=== PATIENT | female | born 1995 | race Caucasian/White ===

== ENCOUNTER 2016-11-26 12:12 | Emergency (ER) | payer MEDICAID, OTHER ==
[~2016-11-26 12:12] MED LIST: PRENTAB74 PO
[2016-11-26] MEDS ORDERED: ACETAMINOPHEN 325 MG TAB As Ordered ONE (13:29)
--- NOTE | 2016-11-26 14:54 | EDDOCDS ---
Physician Documentation [facility] Name: Bette Lou Age: 21 yrs Sex: Female : 1995 Arrival Date: 11/26/2016 Time: 12:12 Bed PR Private MD: Unknown, Family Disposition: 11/26/16 14:39 Discharged to Home/Self Care. Impression: Fever presenting with conditions classified elsewhere, Acute sinusitis, unspecified, Acute upper respiratory infection, unspecified, Other abdominal pain - left-sided, Low back pain. - Condition is Stable. - Discharge Instructions: Back Pain, Adult, Sinusitis, Adult, Upper Respiratory Infection, Adult. - Prescriptions for Augmentin 875- 125 mg Oral Tablet - take 1 tablet by ORAL route every 12 hours for 7 days; 14 tablet. - Medication Reconciliation, Local Pharmacy Hours form. - Follow up: Emergency Department; When: As needed; Reason: Worsening of conditions. Follow up: Your Stone Finisher; When: Call to arrange an appointment; Reason: Wound/Symptom Recheck, Recheck today's complaints, Continuance of care. - Problem is new. - Symptoms have improved. Historical: - Allergies: no known allergies; - Home Meds: 1. Vitamin Oral tab 1 tab once daily 2. Iron CR Unknown Oral daily - PMHx: pars defect; - Social history: Smoking status: Patient states was never smoker of tobacco. No barriers to communication noted, The patient speaks fluent Polish, Speaks appropriately for age. - Family history: Not pertinent. - : The pt / caregiver states he / she is not on anticoagulants. Home medication list is obtained from the patient. - Exposure Risk Screening:: None identified. 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 9 in. (175.26 cm) (R); Pain 6/10; 14:48 BP 123 / 64; Pulse 88; Resp 20; Temp 99.5(T); Pulse Ox 97% on R/A; Pain 5/10; jml1 12:14 Body Mass Index 26.58 (81.65 kg, 175.26 cm) gr2 MDM: 12:46 Acetaminophen Tablet 975 mg PO once ordered. dt4 12:46 Obtain sample by nasopharyngeal swab ordered. dt4 12:46 Heart Tones ordered. dt4 12:47 -Influenza A&B Rapid Antigen - Nose Ordered. EDMS 13:47 Financial registration complete. lg 13:52 Urine Dip ordered. dt4 13:53 Urine Culture Ordered. [facility] Point of Care Testing: Urine Dip: 14:07 pH: 5; ; Specific [place]: 1.020; Ketones: Negative; Glucose: Negative; Protein: Trace; jf3 Leukocytes: Negative; Nitrite: Negative ; Blood: Negative; Bilirubin: Negative ; Urobilinogen: Normal Ranges: Administered Medications: 13:31 Drug: Acetaminophen 975 mg [acetaminophen 325 mg tablet (3 tabs)] Route: PO; jf3 Signatures: Dispatcher MedHost [facility] Flor Zacarias, Reg Reg lg Tala Stoner RN RN ck1 Donna Higgins RN RN alisia3 Billie Mathew PA-C PACharleen dt4 Juve Galvin RN jf3 MTDD
--- NOTE | 2016-11-26 14:54 | EDDOCDS ---
Nurse's Notes [facility] Name: Bette Lou Age: 21 yrs Sex: Female : 1995 Arrival Date: 11/26/2016 Time: 12:12 Bed PR Private MD: Unknown, Family Dr Diagnosis: Fever presenting with conditions classified elsewhere;Acute sinusitis, unspecified;Acute upper respiratory infection, unspecified;Other abdominal [id number]-rbhuf;Low back pain Presentation: 11/26 12:26 Presenting complaint: Patient states: Pt left work because she had a fever and jo3 respiratory congestion. Low back pain which is "pinching" and left abdominal pain. 19 weeks by ultrasound. Acute neurological deficits are not present. Mechanism of Injury: No Mechanism of Injury. Adult Sepsis Screening: The patient does not have new or worsening altered mentation. Patient's respiratory rate is less than 22. Systolic blood pressure is greater than 100. Patient has a qSOFA score of 0- Negative Sepsis Screen. Suicide/Homicide risk assessment- the patient denies having any suicidal and/or homicidal ideations and does not present with any other emotional, behavioral or mental health complaints. Status: Patient is not a surgical services tech or dependent. Transition of care: patient was not received from another setting of care. 12:26 Acuity: SIERRA Level 3 jo3 12:26 Method Of Arrival: Walkin/Carried/Asstd jo3 Triage Assessment: 12:29 General: Appears in no apparent distress, Behavior is appropriate for age, cooperative. jo3 Pain: Pain currently is 5 out of 10 on a pain scale. At worst was 10 out of 10 on a pain scale. HIV screening NA for this visit Offered previously. Neurological: Level of Consciousness is awake, alert, Oriented to person, place, time. Respiratory: Airway is patent Respiratory effort is even, unlabored. Derm: Skin is pink, warm & dry. 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 Vitamin Oral tab 1 tab once daily 2. Iron CR Unknown Oral daily - PMHx: pars defect; - Social history: Smoking status: Patient states was never smoker of tobacco. No barriers to communication noted, The patient speaks fluent Tuval[place], Speaks appropriately for age. - Family history: Not pertinent. - : The pt / caregiver states he / she is not on anticoagulants. Home medication list is obtained from the patient. - Exposure Risk Screening:: None identified. Screenin:51 Screening information is obtained from the patient. Fall risk: No risks identified. ck1 Assistance ADL's: requires no assistance with activities of daily living. Abuse/DV Screen: The patient / caregiver reports he/she is: not in a situation that causes fear, pain or injury. Nutritional screening: No deficits noted. Advance Directives: Currently, there is no health care proxy. home support is adequate. Assessment: 14:52 General: Appears in no apparent distress, comfortable, Behavior is appropriate for age, ck1 cooperative. Pain: Location: back Pain currently is 5 out of 10 on a pain scale. Neurological: Level of Consciousness is awake, alert, obeys commands, Oriented to person, place, time. Derm: Skin is intact, is healthy with good turgor, Skin is pink, warm & dry. Musculoskeletal: Circulation, motion, and sensation intact Range of motion intact in all extremities. Vital Signs: 12:14 BP 143 / 67; Pulse 111; Resp 18 S; Temp 100.8(O); Pulse Ox 99% on R/A; Weight 81.65 kg gr2 (R); Height 5 ft. 9 in. (175.26 cm) (R); Pain 6/10; 14:48 BP 123 / 64; Pulse 88; Resp 20; Temp 99.5(T); Pulse Ox 97% on R/A; Pain 5/10; jml1 12:14 Body Mass Index 26.58 (81.65 kg, 175.26 cm) gr2 Vitals: 12:14 Log In Time: November 26, 2016 at 12:14. gr2 13:37 Heart Tones 163BPM. jf3 ED Course: 12:14 Patient visited by Zachery Oconnor. gr2 12:14 Unknown, Family Dr is Private Physician. gr2 12:14 Patient moved to Waiting gr2 12:16 Patient visited by Zachery Oconnor. gr2 12:16 Patient moved to Pre RCE gr2 12:28 Triage Initiated jo3 12:31 Patient visited by Donna Higgins RN. jo3 13:18 Patient moved to Triage 3 nb2 13:32 Patient visited by Cher Perez. nb2 13:33 Bill[facility] Mathe[facility]C [facility]. dt4 13:33 Adan Montague MD is Attending Physician. dt4 13:33 Patient visited by Billie Mathew PA-C. dt4 13:37 -Influenza A&B Rapid Antigen - Nose Sent. jf3 14:07 Patient visited by Juve Galvin RN. jf3 14:07 Patient moved to jf3 14:07 Urine Culture Sent. jf3 14:38 Your Terrazzo Mechanic is Referral Physician. dt4 14:48 Patient visited by Isaías Matt. jml1 14:51 No IV's were initiated during this patient's visit. No procedures done that require ck1 assistance. 14:52 The patient / caregiver is instructed regarding the plan of care and ED course. ck1 Administered Medications: 13:31 Drug: Acetaminophen 975 mg [acetaminophen 325 mg tablet (3 tabs)] Route: PO; jf3 Point of Care Testing: Urine Dip: 14:07 pH: 5; ; Specific [place]: 1.020; Ketones: Negative; Glucose: Negative; Protein: Trace; jf3 Leukocytes: Negative; Nitrite: Negative ; Blood: Negative; Bilirubin: Negative ; Urobilinogen: Normal Ranges: Order Results: Lab Order: -Influenza A&B Rapid Antigen - Nose; SPEC'M 11/26/16 13:34 Test: INFLUENZA A RAPID SCR by ICA; Value: INFLUENZA A RESULTS NEGATIVE; Status: F Test: INFLUENZA A RAPID SCR by ICA; Value: Comments:; Status: F Test: INFLUENZA B RAPID SCR by ICA; Value: INFLUENZA B RESULTS NEGATIVE; Status: F Test Note: ; The Influenza test is a direct rapid immunoassay for the qualitative detection of Influenza viral antigen. Cell culture (Viral Culture) testing should be considered to confirm NEGATIVE results and to assist in detecting other viruses that can provide similar clinical symptoms. Please contact the lab within 24 hours ([phone]) if confirmatory testing is desired. Outcome: 14:39 Discharge ordered by Provider. dt4 14:51 Discharge Assessment: Patient awake, alert and oriented x 3. No cognitive and/or ck1 functional deficits noted. Patient verbalized understanding of disposition instructions. patient administered narcotics - no. The following High Risk Discharge criteria are identified: None. Discharged to home ambulatory. Condition: stable. Discharge instructions given to patient, Instructed on discharge instructions, follow up and referral plans. medication usage, Demonstrated understanding of instructions, medications, Pt was receptive of discharge instructions/ teaching. Prescriptions given X 1. No special radiology studies were completed. Property :Personal belongings accompany Pt. 14:53 Patient left the ED. ck1 Signatures: Tala Stoner,RN RN ck1 Donna HigginsRN RN jo3 Isaías Matt jml1 Zachery Oconnor gr2 Billie Mathew PA-C PACharleen dt4 Juve Galvin RN RN jf3 Cher Perez nb2 Corrections: (The following items were deleted from the chart) 12:31 12:26 Presenting complaint: Patient states: Pt left work because she had a fever and jo3 respiratory congestion. Low back pain which is "pinching" and left abdominal pain jo3 MTDD
--- NOTE | 2016-11-28 15:54 | EDDOCDS ---
Physician Documentation [facility] Name: Bette Lou Age: 21 yrs Sex: Female : 1995 Arrival Date: 11/26/2016 Time: 12:12 Bed PR Private MD: Unknown, Family Disposition: 11/26/16 14:39 Discharged to Home/Self Care. Impression: Fever presenting with conditions classified elsewhere, Acute sinusitis, unspecified, Acute upper respiratory infection, unspecified, Other abdominal pain - left-sided, Low back pain. - Condition is Stable. - Discharge Instructions: Back Pain, Adult, Sinusitis, Adult, Upper Respiratory Infection, Adult. - Prescriptions for Augmentin 875- 125 mg Oral Tablet - take 1 tablet by ORAL route every 12 hours for 7 days; 14 tablet. - Medication Reconciliation, Local Pharmacy Hours form. - Follow up: Emergency Department; When: As needed; Reason: Worsening of conditions. Follow up: Your Batch Records Clerk; When: Call to arrange an appointment; Reason: Wound/Symptom Recheck, Recheck today's complaints, Continuance of care. - Problem is new. - Symptoms have improved. Historical: - Allergies: no known allergies; - Home Meds: 1. Vitamin Oral tab 1 tab once daily 2. Iron CR Unknown Oral daily - PMHx: pars defect; - Social history: Smoking status: Patient states was never smoker of tobacco. No barriers to communication noted, The patient speaks fluent [place], Speaks appropriately for age. - Family history: Not pertinent. - : The pt / caregiver states he / she is not on anticoagulants. Home medication list is obtained from the patient. - Exposure Risk Screening:: None identified. 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 9 in. (175.26 cm) (R); Pain 6/10; 14:48 BP 123 / 64; Pulse 88; Resp 20; Temp 99.5(T); Pulse Ox 97% on R/A; Pain 5/10; jml1 12:14 Body Mass Index 26.58 (81.65 kg, 175.26 cm) gr2 MDM: 12:46 Acetaminophen Tablet 975 mg PO once ordered. dt4 12:46 Obtain sample by nasopharyngeal swab ordered. dt4 12:46 Heart Tones ordered. dt4 12:47 -Influenza A&B Rapid Antigen - Nose Ordered. EDMS 13:47 Financial registration complete. lg 13:52 Urine Dip ordered. dt4 13:53 Urine Culture Ordered. EDMS 15:43 [facility] Payment Agreement was scanned into [employer] and attached to record. lg 11/27 12:22 T-Sheet-- Draft Copy was scanned into [employer] and attached to record. gb Point of Care Testing: Urine Dip: 11/26 14:07 pH: 5; ; Specific [place]: 1.020; Ketones: Negative; Glucose: Negative; Protein: Trace; jf3 Leukocytes: Negative; Nitrite: Negative ; Blood: Negative; Bilirubin: Negative ; Urobilinogen: Normal Ranges: Administered Medications: 13:31 Drug: Acetaminophen 975 mg [acetaminophen 325 mg tablet (3 tabs)] Route: PO; jf3 Signatures: Dispatcher [employer] [facility] Anisha Sanchez, Reg Reg gb Flor Zacarias, Reg Reg lg Tala StonerRN RN ck1 Donna HigginsRN RN jo3 Billie Mathew PA-C PACharleen dt4 Juve Galvin RN jf3 The chart was reviewed and I authenticate all verbal orders and agree with the evaluation and treatment provided.Attachments: 15:43 [facility] Payment Agreement 11/27 12:22 T-Sheet-- Draft Copy gb Chart Complete MTDD
--- NOTE | 2016-11-28 15:54 | EDDOCDS ---
Nurse's Notes [facility] Name: Bette Lou Age: 21 yrs Sex: Female : 1995 Arrival Date: 11/26/2016 Time: 12:12 Bed PR Private MD: Unknown, Family Dr Diagnosis: Fever presenting with conditions classified elsewhere;Acute sinusitis, unspecified;Acute upper respiratory infection, unspecified;Other abdominal aspc-[id number]-[id number];Low back pain Presentation: 11/26 12:26 Presenting complaint: Patient states: Pt left work because she had a fever and jo3 respiratory congestion. Low back pain which is "pinching" and left abdominal pain. 19 weeks by ultrasound. Acute neurological deficits are not present. Mechanism of Injury: No Mechanism of Injury. Adult Sepsis Screening: The patient does not have new or worsening altered mentation. Patient's respiratory rate is less than 22. Systolic blood pressure is greater than 100. Patient has a qSOFA score of 0- Negative Sepsis Screen. Suicide/Homicide risk assessment- the patient denies having any suicidal and/or homicidal ideations and does not present with any other emotional, behavioral or mental health complaints. 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 Transition of care: patient was not received from another setting of care. 12:26 Acuity: SIERRA Level 3 jo3 12:26 Method Of Arrival: Walkin/Carried/Asstd jo3 Triage Assessment: 12:29 General: Appears in no apparent distress, Behavior is appropriate for age, cooperative. jo3 Pain: Pain currently is 5 out of 10 on a pain scale. At worst was 10 out of 10 on a pain scale. HIV screening NA for this visit Offered previously. Neurological: Level of Consciousness is awake, alert, Oriented to person, place, time. Respiratory: Airway is patent Respiratory effort is even, unlabored. Derm: Skin is pink, warm & dry. 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 Vitamin Oral tab 1 tab once daily 2. Iron CR Unknown Oral daily - PMHx: pars defect; - Social history: Smoking status: Patient states was never smoker of tobacco. No barriers to communication noted, The patient speaks fluent German, Speaks appropriately for age. - Family history: Not pertinent. - : The pt / caregiver states he / she is not on anticoagulants. Home medication list is obtained from the patient. - Exposure Risk Screening:: None identified. Screenin:51 Screening information is obtained from the patient. Fall risk: No risks identified. ck1 Assistance ADL's: requires no assistance with activities of daily living. Abuse/DV Screen: The patient / caregiver reports he/she is: not in a situation that causes fear, pain or injury. Nutritional screening: No deficits noted. Advance Directives: Currently, there is no health care proxy. home support is adequate. Assessment: 14:52 General: Appears in no apparent distress, comfortable, Behavior is appropriate for age, ck1 cooperative. Pain: Location: back Pain currently is 5 out of 10 on a pain scale. Neurological: Level of Consciousness is awake, alert, obeys commands, Oriented to person, place, time. Derm: Skin is intact, is healthy with good turgor, Skin is pink, warm & dry. Musculoskeletal: Circulation, motion, and sensation intact Range of motion intact in all extremities. Vital Signs: 12:14 BP 143 / 67; Pulse 111; Resp 18 S; Temp 100.8(O); Pulse Ox 99% on R/A; Weight 81.65 kg gr2 (R); Height 5 ft. 9 in. (175.26 cm) (R); Pain 6/10; 14:48 BP 123 / 64; Pulse 88; Resp 20; Temp 99.5(T); Pulse Ox 97% on R/A; Pain 5/10; jml1 12:14 Body Mass Index 26.58 (81.65 kg, 175.26 cm) gr2 Vitals: 12:14 Log In Time: November 26, 2016 at 12:14. gr2 13:37 Heart Tones 163BPM. jf3 ED Course: 12:14 Patient visited by Zachery Oconnor. gr2 12:14 Unknown, Family Dr is Private Physician. gr2 12:14 Patient moved to Waiting gr2 12:16 Patient visited by Zachery Oconnor. gr2 12:16 Patient moved to Pre RCE gr2 12:28 Triage Initiated jo3 12:31 Patient visited by Donna Higgins RN. jo3 13:18 Patient moved to Triage 3 nb2 13:32 Patient visited by Cher Perez. nb2 13:33 Billie aMthew PA-C is PHCP. dt4 13:33 Adan Montague MD is Attending Physician. dt4 13:33 Patient visited by Billie Mathew PA-C. dt4 13:37 -Influenza A&B Rapid Antigen - Nose Sent. jf3 14:07 Patient visited by Juve Galvin RN. jf3 14:07 Patient moved to jf3 14:07 Urine Culture Sent. jf3 14:38 Your Networking Engineer is Referral Physician. dt4 14:48 Patient visited by Isaías Matt. jml1 14:51 No IV's were initiated during this patient's visit. No procedures done that require ck1 assistance. 14:52 The patient / caregiver is instructed regarding the plan of care and ED course. ck1 15:43 [facility] Payment Agreement was scanned into [employer] and attached to record. 11/27 12:22 T-Sheet-- Draft Copy was scanned into [employer] and attached to record. gb Administered Medications: 11/26 13:31 Drug: Acetaminophen 975 mg [acetaminophen 325 mg tablet (3 tabs)] Route: PO; jf3 Point of Care Testing: Urine Dip: 14:07 pH: 5; ; Specific [place]: 1.020; Ketones: Negative; Glucose: Negative; Protein: Trace; jf3 Leukocytes: Negative; Nitrite: Negative ; Blood: Negative; Bilirubin: Negative ; Urobilinogen: Normal Ranges: Order Results: Lab Order: -Influenza A&B Rapid Antigen - Nose; SPEC'M 11/26/16 13:34 Test: INFLUENZA A RAPID SCR by ICA; Value: INFLUENZA A RESULTS NEGATIVE; Status: F Test: INFLUENZA A RAPID SCR by ICA; Value: Comments:; Status: F Test: INFLUENZA B RAPID SCR by ICA; Value: INFLUENZA B RESULTS NEGATIVE; Status: F Test Note: ; The Influenza test is a direct rapid immunoassay for the qualitative detection of Influenza viral antigen. Cell culture (Viral Culture) testing should be considered to confirm NEGATIVE results and to assist in detecting other viruses that can provide similar clinical symptoms. Please contact the lab within 24 hours ([phone]) if confirmatory testing is desired. Lab Order: Urine Culture; SPEC'M 11/26/16 14:00 Test: URINE CULTURE; Value: <EXTERNAL COMMENT eCWMed> FULL REPORT IN LAB NOTES (eCW and Medent).; Status: F Test: URINE CULTURE; Value: URINE CULTURE RESULT NO GROWTH; Status: F Outcome: 14:39 Discharge ordered by Provider. dt4 14:51 Discharge Assessment: Patient awake, alert and oriented x 3. No cognitive and/or ck1 functional deficits noted. Patient verbalized understanding of disposition instructions. patient administered narcotics - no. The following High Risk Discharge criteria are identified: None. Discharged to home ambulatory. Condition: stable. Discharge instructions given to patient, Instructed on discharge instructions, follow up and referral plans. medication usage, Demonstrated understanding of instructions, medications, Pt was receptive of discharge instructions/ teaching. Prescriptions given X 1. No special radiology studies were completed. Property :Personal belongings accompany Pt. 14:53 Patient left the ED. ck1 Signatures: Anisha Sanchez, Reg Reg gb Flor Zacarias, Reg Reg lg Tala StonerRN RN ck1 Donna HigginsRN RN alisia3 Isaías Matt jml1 Zachery Oconnor gr2 Billie Mathew, PA-C PA-C dt4 Juve GalvinRN RN jf3 Cher Perez nb2 Corrections: (The following items were deleted from the chart) 12:31 12:26 Presenting complaint: Patient states: Pt left work because she had a fever and jo3 respiratory congestion. Low back pain which is "pinching" and left abdominal pain jo3 Chart Complete MTDD
--- NOTE | 2016-11-28 15:54 | EDDOCDS ---
Physician Documentation [facility] Name: Bette Lou Age: 21 yrs Sex: Female : 1995 Arrival Date: 11/26/2016 Time: 12:12 Bed PR Private MD: Unknown, Family Disposition: 11/26/16 14:39 Discharged to Home/Self Care. Impression: Fever presenting with conditions classified elsewhere, Acute sinusitis, unspecified, Acute upper respiratory infection, unspecified, Other abdominal pain - left-sided, Low back pain. - Condition is Stable. - Discharge Instructions: Back Pain, Adult, Sinusitis, Adult, Upper Respiratory Infection, Adult. - Prescriptions for Augmentin 875- 125 mg Oral Tablet - take 1 tablet by ORAL route every 12 hours for 7 days; 14 tablet. - Medication Reconciliation, Local Pharmacy Hours form. - Follow up: Emergency Department; When: As needed; Reason: Worsening of conditions. 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 - Problem is new. - Symptoms have improved. Historical: - Allergies: no known allergies; - Home Meds: 1. Vitamin Oral tab 1 tab once daily 2. Iron CR Unknown Oral daily - PMHx: pars defect; - Social history: Smoking status: Patient states was never smoker of tobacco. No barriers to communication noted, The patient speaks fluent Yakut, Speaks appropriately for age. - Family history: Not pertinent. - : The pt / caregiver states he / she is not on anticoagulants. Home medication list is obtained from the patient. - Exposure Risk Screening:: None identified. 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 9 in. (175.26 cm) (R); Pain 6/10; 14:48 BP 123 / 64; Pulse 88; Resp 20; Temp 99.5(T); Pulse Ox 97% on R/A; Pain 5/10; jml1 12:14 Body Mass Index 26.58 (81.65 kg, 175.26 cm) gr2 MDM: 12:46 Acetaminophen Tablet 975 mg PO once ordered. dt4 12:46 Obtain sample by nasopharyngeal swab ordered. dt4 12:46 Heart Tones ordered. dt4 12:47 -Influenza A&B Rapid Antigen - Nose Ordered. EDMS 13:47 Financial registration complete. lg 13:52 Urine Dip ordered. dt4 13:53 Urine Culture Ordered. EDMS 15:43 [facility] Payment Agreement was scanned into [employer] and attached to record. lg 11/27 12:22 T-Sheet-- Draft Copy was scanned into [employer] and attached to record. gb Point of Care Testing: Urine Dip: 11/26 14:07 pH: 5; ; Specific [place]: 1.020; Ketones: Negative; Glucose: Negative; Protein: Trace; jf3 Leukocytes: Negative; Nitrite: Negative ; Blood: Negative; Bilirubin: Negative ; Urobilinogen: Normal Ranges: Administered Medications: 13:31 Drug: Acetaminophen 975 mg [acetaminophen 325 mg tablet (3 tabs)] Route: PO; jf3 Signatures: Dispatcher [employer] EDNM Anisha Sanchez, Reg Reg gb Flor Zacarias, Reg Reg lg Tala StonerRN RN ck1 Donna HigginsRN RN jo3 Billie Mathew PA-C PACharleen dt4 Juve Galvin RN jf3 The chart was reviewed and I authenticate all verbal orders and agree with the evaluation and treatment provided.Attachments: 15:43 [facility] Payment Agreement 11/27 12:22 T-Sheet-- Draft Copy gb Chart Complete MTDD
== END 2016-11-26 14:53 | disposition home or self-care (01) ==
LOC: M ED 12:12
DX: O99.89 Other specified diseases and conditions complicating pregnancy, childbirth and the puerperium (principal); J01.90 Acute sinusitis, unspecified; R50.9 Fever, unspecified; M54.5 Low back pain; R10.9 Unspecified abdominal pain; Z3A.19 19 weeks gestation of pregnancy

== ENCOUNTER → 2020-05-11 | Outpatient (REF) | payer OTHER | LOC: M SFHCLERA 13:18 | PROVIDERS: ATTEND Physician Assistant | DX: J02.9 Acute pharyngitis, unspecified (principal) ==

== ENCOUNTER 2020-12-13 13:54 | Emergency (ER) | payer OTHER ==
[~2020-12-13] VITALS: Ht 175.3 cm; Wt 81.1 kg
--- OUTSIDE RECORDS SUMMARY | 2020-12-13 14:05 | CCD | Continuity of Care Document ---
Author Author Bette CONSTANTINO [facility] Organization Unknown Address [address] [place] [address], [facility] [address] [place] [address] Phone [phone] Care Team Providers Care Field Radio Operator Name Role Phone Chente Pratt AUTM [phone] Nick Garcia MD AUTM [phone] Problems Description No Information Available Social History Type Date Description Comments Sex Unknown Tobacco Use Start: Unknown Patient is a current smoker, smo kes every day Smoking Status Reviewed: 09/05/20 Patient is a current smoker, smokes every day Allergies, Adverse Reactions, Alerts Description No Information Available Medications Active Medications SIG Qnty Indications Ordering Provide r Date Tramadol HCL 50mg Tablets 1 every 4-6 hours as needed pain (comp) 24tabs Julius Mary MD 1 Immunizations Description No Information Available Vital Signs Date Vital Result Comment 10/31/2020 5:59pm Body Temperature 98.9 F 09/05/2020 5:07pm Body Temperature 97.1 F Results Description No Information Available Procedures Date Code Description Status 11/05/2020 36999 Therapeutic Procedure, Each 15 M inutes Completed 11/01/2020 57387 Physical Therapy Eval - Low Comp lexity Completed 10/31/2020 15017 X-Ray Foot Complete Completed 10/31/2020 54947 X-Ray Ankle Complete Completed 10/03/2020 90717 X-Ray Foot Complete Completed 10/03/2020 03696 X-Ray Ankle Complete Completed 09/19/2020 61829 X-Ray Foot Complete Completed 09/19/2020 43933 X-Ray Ankle Complete Completed 09/05/2020 72550 X-Ray Foot Complete Completed 09/05/2020 80911 X-Ray Ankle Complete Completed 08/24/2020 37219 Apply Cast Short Leg Walking Com pleted 08/23/2020 25143 X-Ray Foot Complete Completed 08/23/2020 02000 X-Ray Foot Complete Completed 08/23/2020 31239 FX Metatarsal W/O Manipulation C ompleted 08/23/2020 68847 FX Metatarsal W/O Manipulation C ompleted Medical Devices Description No Information Available Encounters Type Date Location Provider Dx Diagnosis Office Visit 10/31/2020 5:30p [facility] CORINNA Rodriguez S92.325D Nondisp fx of 2nd metatarsal bone, l ft, 7thD S92.335D Nondisp fx of 3rd metatarsal bone, l ft, 7thD S92.345D Nondisp fx of 4th metatarsal bone, l ft, 7thD S82.65xD Nondisp fx of lateral malleo viviane of l fibula, 7thD Office Visit 10/03/2020 4:00p [facility] S92.325D Nondisp fx of 2nd metatarsal bone, l ft, 7thD S92.335D Nondisp fx of 3rd metatarsal bone, l ft, 7thD S92.345D Nondisp fx of 4th metatarsal bone, l ft, 7thD S82.65xD Nondisp fx of lateral malleo viviane of l fibula, 7thD Office Visit 09/19/2020 1:30p [facility] CORINNA Rodriguez S92.325D Nondisp fx of 2nd metatarsal bone, l ft, 7thD S92.335D Nondisp fx of 3rd metatarsal bone, l ft, 7thD S92.345D Nondisp fx of 4th metatarsal bone, l ft, 7thD S82.65xD Nondisp fx of lateral malleo viviane of l fibula, 7thD Office Visit 09/05/2020 4:45p [facility] S92.325D Nondisp fx of 2nd metatarsal bone, l ft, 7thD S92.335D Nondisp fx of 3rd metatarsal bone, l ft, 7thD S92.345D Nondisp fx of 4th metatarsal bone, l ft, 7thD S82.65xD Nondisp fx of lateral malleo viviane of l fibula, 7thD Office Visit 08/24/2020 4:45p [facility] Chente Petty, Paolo. S92.325A Nondisp fx of second metatarsal bone, left foot, init S92.335D Nondisp fx of 3rd metatarsal bone, l ft, 7thD S92.345A Nondisp fx of fourth metatar ammon bone, left foot, init Office Visit 08/23/2020 6:15p [facility] CORINNA Rodriguez S92.325A Nondisp fx of second metatarsal bone, left foot, init S92.335A Nondisp fx of third metatars al bone, left foot, init S92.345A Nondisp fx of fourth metatar ammon bone, left foot, init S93.402A Sprain of unspecified ligame nt of left ankle, init encntr Assessments Date Code Description Provider 11/05/2020 S92.325D Nondisplaced fractur e of second metatarsal bone, left foot, subsequent encounter for fracture with routine healing Melisa M. Vespa, [facility] 11/05/2020 S92.335D Nondisplaced fractur e of third metatarsal bone, left foot, subsequent encounter for fracture with routine healing Melisa M. Vespa, [facility] 11/05/2020 S92.345D Nondisplaced fractur e of fourth metatarsal bone, left foot, subsequent encounter for fracture with routine healing Melisa M. Vespa, [facility] 11/05/2020 S82.65xD Nondisplaced fractur e of lateral malleolus of left fibula, subsequent encounter for closed fracture with routine healing Melisa M. Vespa, [facility] 11/01/2020 S92.325D Nondisplaced fractur e of second metatarsal bone, left foot, subsequent encounter for fracture with routine healing Melisa M. Vespa, [facility] 11/01/2020 S92.335D Nondisplaced fractur e of third metatarsal bone, left foot, subsequent encounter for fracture with routine healing Melisa M. Vespa, [facility] 11/01/2020 S92.345D Nondisplaced fractur e of fourth metatarsal bone, left foot, subsequent encounter for fracture with routine healing Melisa Constantino, [facility] 11/01/2020 S82.65xD Nondisplaced fractur e of lateral malleolus of left fibula, subsequent encounter for closed fracture with routine healing Melisa Constantino, [facility] 10/31/2020 S92.325D Nondisplaced fractur e of second metatarsal bone, left foot, subsequent encounter for fracture with routine healing CORINNA Rodriguez 10/31/2020 S92.335D Nondisplaced fractur e of third metatarsal bone, left foot, subsequent encounter for fracture with routine healing CORINNA Rodriguez 10/31/2020 S92.345D Nondisplaced fractur e of fourth metatarsal bone, left foot, subsequent encounter for fracture with routine healing CORINNA Rodriguez 10/31/2020 S82.65xD Nondisplaced fractur e of lateral malleolus of left fibula, subsequent encounter for closed fracture with routine healing CORINNA Rodriguez 10/03/2020 S92.325D Nondisplaced fractur e of second metatarsal bone, left foot, subsequent encounter for fracture with routine healing CORINNA Rodriguez 10/03/2020 S92.335D Nondisplaced fractur e of third metatarsal bone, left foot, subsequent encounter for fracture with routine healing CORINNA Rodriguez 10/03/2020 S92.345D Nondisplaced fractur e of fourth metatarsal bone, left foot, subsequent encounter for fracture with routine healing CORINNA Rodriguez 10/03/2020 S82.65xD Nondisplaced fractur e of lateral malleolus of left fibula, subsequent encounter for closed fracture with routine healing CORINNA Rodriguez 09/19/2020 S92.325D Nondisplaced fractur e of second metatarsal bone, left foot, subsequent encounter for fracture with routine healing CORINNA Rodriguez 09/19/2020 S92.325D Nondisplaced fractur e of second metatarsal bone, left foot, subsequent encounter for fracture with routine healing CORINNA Rodriguez 09/19/2020 S92.335D Nondisplaced fractur e of third metatarsal bone, left foot, subsequent encounter for fracture with routine healing CORINNA Rodriguez 09/19/2020 S92.335D Nondisplaced fractur e of third metatarsal bone, left foot, subsequent encounter for fracture with routine healing CORINNA Rodriguez 09/19/2020 S92.345D Nondisplaced fractur e of fourth metatarsal bone, left foot, subsequent encounter for fracture with routine healing CORINNA Rodriguez 09/19/2020 S92.345D Nondisplaced fractur e of fourth metatarsal bone, left foot, subsequent encounter for fracture with routine healing CORINNA Rodriguez 09/19/2020 S82.65xD Nondisplaced fractur e of lateral malleolus of left fibula, subsequent encounter for closed fracture with routine healing CORINNA Rodriguez 09/19/2020 S82.65xD Nondisplaced fractur e of lateral malleolus of left fibula, subsequent encounter for closed fracture with routine healing CORINNA Rodriguez 09/05/2020 S92.325D Nondisplaced fractur e of second metatarsal bone, left foot, subsequent encounter for fracture with routine healing CORINNA Rodriguez 09/05/2020 S92.335D Nondisplaced fractur e of third metatarsal bone, left foot, subsequent encounter for fracture with routine healing CORINNA Rodriguez 09/05/2020 S92.345D Nondisplaced fractur e of fourth metatarsal bone, left foot, subsequent encounter for fracture with routine healing CORINNA Rodriguez 09/05/2020 S82.65xD Nondisplaced fractur e of lateral malleolus of left fibula, subsequent encounter for closed fracture with routine healing CORINNA Rodriguez 08/24/2020 S92.325A Nondisplaced fractur e of second metatarsal bone, left foot, initial encounter for closed fracture Sree Kingsley 08/24/2020 S92.335D Nondisplaced fractur e of third metatarsal bone, left foot, subsequent encounter for fracture with routine healing Chente Petty, P.A. 08/24/2020 S92.325A Nondisplaced fractur e of second metatarsal bone, left foot, initial encounter for closed fracture Chente Petty, P.A. 08/24/2020 S92.345A Nondisplaced fractur e of fourth metatarsal bone, left foot, initial encounter for closed fracture Chente Petty P.A. 08/24/2020 S92.335A Nondisplaced fractur e of third metatarsal bone, left foot, initial encounter for closed fracture Chente Petty, P.A. 08/24/2020 S92.345A Nondisplaced fractur e of fourth metatarsal bone, left foot, initial encounter for closed fracture Jhon Kingsley.A. 08/23/2020 S92.325A Nondisplaced fractur e of second metatarsal bone, left foot, initial encounter for closed fracture CORINNA Rodriguez 08/23/2020 S92.335A Nondisplaced fractur e of third metatarsal bone, left foot, initial encounter for closed fracture CORINNA Rodriguez 08/23/2020 S92.345A Nondisplaced fractur e of fourth metatarsal bone, left foot, initial encounter for closed fracture CORINNA Rodriguez 08/23/2020 S93.402A Sprain of unspecifie d ligament of left ankle, initial encounter CORINNA Rodriguez Plan of Treatment Future Appointment(s):* 11/09/2020 11:00 am - SHAYNA Alfaro at Physical Therapy * 11/13/2020 1:40 pm - CORINNA Rodriguez at [facility] Functional Status Description No Information Available Mental Status Description No Information Available Referrals Refer to Dr Reason for Referral Status Appt Date Kar Sam Pac PT LT ANKLE [phone] [id number] WRITTEN AUTH PASSED TO PT DEPT. LS Created [address] [place] [address] [address] [place] [address] [phone] Kar Sam I, Pac DME [id number] 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 LS Created [address] [facility] [address] [place] [address] [phone]
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
--- OUTSIDE RECORDS SUMMARY | 2020-12-13 14:05 | CCD | Continuity of Care Document ---
Author Author Bette SAM PA Organization Unknown Address [address] [place] [address], [address] [place] [address] Phone [phone] Care Team Providers Care Grades 9 12 Tutor Name Role Phone Chente Pratt AUTM [phone] Nick Garcia MD AUTM [phone] Problems Description No Information Available Social History [...] Information Available Procedures Date Code Description Status 11/16/2020 33066 Therapeutic Procedure, Each 15 M inutes Completed 11/16/2020 64991 Therapeutic Procedure, Each 15 M inutes Completed 11/12/2020 11125 Therapeutic Procedure, Each 15 M inutes Completed 11/12/2020 18151 Therapeutic Procedure, Each 15 M inutes Completed 11/09/2020 26985 Therapeutic Procedure, Each 15 M inutes Completed 11/09/2020 42007 Therapeutic Procedure, Each 15 M inutes Completed 11/07/2020 86261 Therapeutic Procedure, Each 15 M inutes Completed 11/07/2020 45183 Therapeutic Procedure, Each 15 M inutes Completed 11/05/2020 12473 Therapeutic Procedure, Each 15 M inutes Completed 11/01/2020 06329 Physical Therapy Eval - Low Comp lexity Completed 10/31/2020 41378 X-Ray Ankle Complete Completed 10/31/2020 31228 X-Ray Foot Complete Completed 10/03/2020 70185 X-Ray Foot Complete Completed 10/03/2020 99040 X-Ray Ankle Complete Completed 09/19/2020 93598 X-Ray Foot Complete Completed 09/19/2020 99208 X-Ray Ankle Complete Completed 09/05/2020 12361 X-Ray Foot Complete Completed 09/05/2020 40010 X-Ray Ankle Complete Completed 08/24/2020 77611 Apply Cast Short Leg Walking Com pleted 08/23/2020 07794 X-Ray Foot Complete Completed 08/23/2020 73535 X-Ray Foot Complete Completed 08/23/2020 91620 FX Metatarsal W/O Manipulation C ompleted 08/23/2020 58806 FX Metatarsal W/O Manipulation C ompleted Medical Devices Description No Information Available Encounters Type Date Location Provider Dx Diagnosis Office Visit 11/13/2020 1:40p [place] CORINNA Rodriguez S92.325D Nondisp fx of 2nd metatarsal bone, l ft, 7thD S92.335D Nondisp fx of 3rd metatarsal bone, l ft, 7thD S92.345D Nondisp fx of 4th metatarsal bone, l ft, 7thD S82.65xD Nondisp fx of lateral malleo viviane of l fibula, 7thD Office Visit 10/31/2020 5:30p [place] CORINNA Rodriguez S92.325D Nondisp fx of 2nd metatarsal bone, l ft, 7thD S92.335D Nondisp fx of 3rd metatarsal bone, l ft, 7thD S92.345D Nondisp fx of 4th metatarsal bone, l ft, 7thD S82.65xD Nondisp fx of lateral malleo viviane of l fibula, 7thD Office Visit 10/03/2020 4:00p [place] CORINNA Rodriguez S92.325D Nondisp fx of 2nd metatarsal bone, l ft, 7thD S92.335D Nondisp fx of 3rd metatarsal bone, l ft, 7thD S92.345D Nondisp fx of 4th metatarsal bone, l ft, 7thD S82.65xD Nondisp fx of lateral malleo viviane of l fibula, 7thD Office Visit 09/19/2020 1:30p [place] CORINNA Rodriguez S92.325D Nondisp fx of 2nd metatarsal bone, l ft, 7thD S92.335D Nondisp fx of 3rd metatarsal bone, l ft, 7thD S92.345D Nondisp fx of 4th metatarsal bone, l ft, 7thD S82.65xD Nondisp fx of lateral malleo viviane of l fibula, 7thD Office Visit 09/05/2020 4:45p [place] CORINNA Rodriguez S92.325D Nondisp fx of 2nd metatarsal bone, l ft, 7thD S92.335D Nondisp fx of 3rd metatarsal bone, l ft, 7thD S92.345D Nondisp fx of 4th metatarsal bone, l ft, 7thD S82.65xD Nondisp fx of lateral malleo viviane of l fibula, 7thD Office Visit 08/24/2020 4:45p [place] Chente Petty, P.A. S92.325A Nondisp fx of second metatarsal bone, left foot, init S92.335D Nondisp fx of 3rd metatarsal bone, l ft, 7thD S92.345A Nondisp fx of fourth metatar ammon bone, left foot, init Office Visit 08/23/2020 6:15p [place] CORINNA Rodriguez S92.325A Nondisp fx of second metatarsal bone, left foot, init S92.335A Nondisp fx of third metatars al bone, left foot, init S92.345A Nondisp fx of fourth metatar ammon bone, left foot, init S93.402A Sprain of unspecified ligame nt of left ankle, init encntr Assessments Date Code Description Provider 11/16/2020 S92.325D Nondisplaced fractur e of second metatarsal bone, left foot, subsequent encounter for fracture with routine healing Melisa M. Vira, [facility] 11/16/2020 S92.335D Nondisplaced fractur e of third metatarsal bone, left foot, subsequent encounter for fracture with routine healing [facility] 11/16/2020 S92.345D Nondisplaced fractur e of fourth metatarsal bone, left foot, subsequent encounter for fracture with routine healing Melisa M. Vira, [facility] 11/16/2020 S82.65xD Nondisplaced fractur e of lateral malleolus of left fibula, subsequent encounter for closed fracture with routine healing Melisa M. Vira, [facility] 11/13/2020 S92.325D Nondisplaced fractur e of second metatarsal bone, left foot, subsequent encounter for fracture with routine healing CORINNA Rodriguez 11/13/2020 S92.335D Nondisplaced fractur e of third metatarsal bone, left foot, subsequent encounter for fracture with routine healing CORINNA Rodriguez 11/13/2020 S92.345D Nondisplaced fractur e of fourth metatarsal bone, left foot, subsequent encounter for fracture with routine healing CORINNA Rodriguez 11/13/2020 S82.65xD Nondisplaced fractur e of lateral malleolus of left fibula, subsequent encounter for closed fracture with routine healing CORINNA Rodriguez 11/12/2020 S92.325D Nondisplaced fractur e of second metatarsal bone, left foot, subsequent encounter for fracture with routine healing Melisa Shawn Constantino, [facility] 11/12/2020 S92.335D Nondisplaced fractur e of third metatarsal bone, left foot, subsequent encounter for fracture with routine healing Melisa M. Vira, [facility] 11/12/2020 S92.345D Nondisplaced fractur e of fourth metatarsal bone, left foot, subsequent encounter for fracture with routine healing Melisa M. Vira, [facility] 11/12/2020 S82.65xD Nondisplaced fractur e of lateral malleolus of left fibula, subsequent encounter for closed fracture with routine healing Melisa MJose Constantino, [facility] 11/09/2020 S92.325D Nondisplaced fractur e of second metatarsal bone, left foot, subsequent encounter for fracture with routine healing Melisa M. Vespa, [facility] 11/09/2020 S92.335D Nondisplaced fractur e of third metatarsal bone, left foot, subsequent encounter for fracture with routine healing Melisa M. Vespa, [facility] 11/09/2020 S92.345D Nondisplaced fractur e of fourth metatarsal bone, left foot, subsequent encounter for fracture with routine healing Melisa M. Vespa, [facility] 11/09/2020 S82.65xD Nondisplaced fractur e of lateral malleolus of left fibula, subsequent encounter for closed fracture with routine healing Melisa M. Vespa, [facility] 11/07/2020 S92.325D Nondisplaced fractur e of second metatarsal bone, left foot, subsequent encounter for fracture with routine healing Melisa M. Vespa, [facility] 11/07/2020 S92.335D Nondisplaced fractur e of third metatarsal bone, left foot, subsequent encounter for fracture with routine healing Melisa M. Vespa, [facility] 11/07/2020 S92.345D Nondisplaced fractur e of fourth metatarsal bone, left foot, subsequent encounter for fracture with routine healing Melisa M. Vespa, [facility] 11/07/2020 S82.65xD Nondisplaced fractur e of lateral malleolus of left fibula, subsequent encounter for closed fracture with routine healing Melisa M. Vespa, [facility] 11/05/2020 S92.325D Nondisplaced fractur e of second metatarsal bone, left foot, subsequent encounter for fracture with routine healing Melisa M. Vespa, [facility] 11/05/2020 S92.335D Nondisplaced fractur e of third metatarsal bone, left foot, subsequent encounter for fracture with routine healing Melisa M. Vespa, [facility] 11/05/2020 S92.345D Nondisplaced fractur e of fourth metatarsal bone, left foot, subsequent encounter for fracture with routine healing Melisa M. Vespa, [facility] 11/05/2020 S82.65xD Nondisplaced fractur e of lateral malleolus of left fibula, subsequent encounter for closed fracture with routine healing Melisa Constantino, [facility] 11/01/2020 S92.325D Nondisplaced fractur e of second metatarsal bone, left foot, subsequent encounter for fracture with routine healing Melisa Constantino, [facility] 11/01/2020 S92.335D Nondisplaced fractur e of third metatarsal bone, left foot, subsequent encounter for fracture with routine healing Melisa Constantino, [facility] 11/01/2020 S92.345D Nondisplaced fractur e of fourth metatarsal bone, left foot, subsequent encounter for fracture with routine healing Melisa Constantino, [facility] 11/01/2020 S82.65xD Nondisplaced fractur e of lateral malleolus of left fibula, subsequent encounter for closed fracture with routine healing Melisa Constantino, [facility] 10/31/2020 S92.325D Nondisplaced fractur e of second [...] for closed fracture Chente Petty P.A. 08/24/2020 S92.335D Nondisplaced fractur e of third metatarsal bone, left foot, subsequent encounter for fracture with routine healing Chente Petty P.A. 08/24/2020 S92.325A Nondisplaced fractur e of second metatarsal bone, left foot, initial encounter for closed fracture Chente Petty P.A. 08/24/2020 S92.345A Nondisplaced fractur e of fourth metatarsal bone, left foot, initial encounter for closed fracture Chente Petty P.A. 08/24/2020 S92.335A Nondisplaced fractur e of third metatarsal bone, left foot, initial encounter for closed fracture Chente Petty, P.A. 08/24/2020 S92.345A Nondisplaced fractur e of fourth metatarsal bone, left foot, initial encounter for closed fracture Chente Petty, P.A. 08/23/2020 S92.325A Nondisplaced fractur e of second [...] CORINNA Rodriguez Plan of Treatment Future Appointment(s):* 12/13/2020 11:30 am - CORINNA Rodriguez at [facility] * 11/22/2020 3:00 pm - AMAURY AlfaroT at Physical Therapy * 11/19/2020 3:00 pm - SHAYNA Alfaro at Physical Therapy Functional Status Description No Information Available Mental Status Description No Information Available Referrals Refer to Dr Reason for Referral Status Appt Date Kar Sam I, Pac PT LT ANKLE [id number] [phone] [phone] [id number] WRITTEN AUTH PASSED TO PT DEPT. Created [facility] [address] [address] [phone] Kar Sam I, Pac DME [id number] 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 Created [facility] [address] [address] [phone]
--- OUTSIDE RECORDS SUMMARY | 2020-12-13 14:05 | CCD | Continuity of Care Document ---
Author Author Bette [facility] Organization Unknown Address [address] [place] [address], [facility] [address] [place] [address] Phone [phone] Care Team Providers Care Dialysis Nurse Name Role Phone Chente Pratt AUTM [phone] Nick Garcia MD AUTM [phone] Problems Description No Information Available Social History [...] Information Available Procedures Date Code Description Status 11/09/2020 09308 Therapeutic Procedure, Each 15 M inutes Completed 11/09/2020 59540 Therapeutic Procedure, Each 15 M inutes Completed 11/07/2020 52071 Therapeutic Procedure, Each 15 M inutes Completed 11/07/2020 83294 Therapeutic Procedure, Each 15 M inutes Completed 11/05/2020 73715 Therapeutic Procedure, Each 15 M inutes Completed 11/01/2020 76478 Physical Therapy Eval - Low Comp lexity Completed 10/31/2020 83697 X-Ray Foot Complete Completed 10/31/2020 95870 X-Ray Ankle Complete Completed 10/03/2020 85706 X-Ray Ankle Complete Completed 10/03/2020 96917 X-Ray Foot Complete Completed 09/19/2020 33063 X-Ray Foot Complete Completed 09/19/2020 35642 X-Ray Ankle Complete Completed 09/05/2020 70009 X-Ray Foot Complete Completed 09/05/2020 27050 X-Ray Ankle Complete Completed 08/24/2020 88061 Apply Cast Short Leg Walking Com pleted 08/23/2020 99711 X-Ray Foot Complete Completed 08/23/2020 33837 X-Ray Foot Complete Completed 08/23/2020 20360 FX Metatarsal W/O Manipulation C ompleted 08/23/2020 74801 FX Metatarsal W/O Manipulation C ompleted Medical Devices Description No Information Available Encounters Type Date Location Provider Dx Diagnosis Office Visit 10/31/2020 5:30p [facility] S92.325D Nondisp fx of 2nd metatarsal bone, l ft, 7thD S92.335D Nondisp fx of 3rd metatarsal bone, l ft, 7thD S92.345D Nondisp fx of 4th metatarsal bone, l ft, 7thD S82.65xD Nondisp fx of lateral malleo viviane of l fibula, 7thD Office Visit 10/03/2020 4:00p [facility] S92.325D Nondisp fx of 2nd metatarsal bone, l ft, 7thD S92.335D Nondisp fx of 3rd metatarsal bone, l ft, 7thD S92.345D Nondisp fx of 4th metatarsal bone, l ft, 7thD S82.65xD Nondisp fx of lateral malleo viviane of l fibula, 7thD Office Visit 09/19/2020 1:30p [place] [place] S92.325D Nondisp fx of 2nd metatarsal bone, l ft, 7thD S92.335D Nondisp fx of 3rd metatarsal bone, l ft, 7thD S92.345D Nondisp fx of 4th metatarsal bone, l ft, 7thD S82.65xD Nondisp fx of lateral malleo viviane of l fibula, 7thD Office Visit 09/05/2020 4:45p [place] [place] S92.325D Nondisp fx of 2nd metatarsal bone, l ft, 7thD S92.335D Nondisp fx of 3rd metatarsal bone, l ft, 7thD S92.345D Nondisp fx of 4th metatarsal bone, l ft, 7thD S82.65xD Nondisp fx of lateral malleo viviane of l fibula, 7thD Office Visit 08/24/2020 4:45p [place] [facility] S92.325A Nondisp fx of second metatarsal bone, left foot, init S92.335D Nondisp fx of 3rd metatarsal bone, l ft, 7thD S92.345A Nondisp fx of fourth metatar ammon bone, left foot, init Office Visit 08/23/2020 6:15p [place] [place] S92.325A Nondisp fx of second metatarsal bone, left foot, init S92.335A Nondisp fx of third metatars al bone, left foot, init S92.345A Nondisp fx of fourth metatar ammon bone, left foot, init S93.402A Sprain of unspecified ligame nt of left ankle, init encntr Assessments Date Code Description Provider 11/09/2020 S92.325D Nondisplaced fractur e of second metatarsal bone, left foot, subsequent encounter for fracture with routine healing Melisa Constantino, [facility] 11/09/2020 S92.335D Nondisplaced fractur e of third metatarsal bone, left foot, subsequent encounter for fracture with routine healing Melisa Constantino, [facility] 11/09/2020 S92.345D Nondisplaced fractur e of fourth metatarsal bone, left foot, subsequent encounter for fracture with routine healing Melisa Constantino, [facility] 11/09/2020 S82.65xD Nondisplaced fractur e of lateral malleolus of left fibula, subsequent encounter for closed fracture with routine healing Melisa Constantino, [facility] 11/07/2020 S92.325D Nondisplaced fractur e of second metatarsal bone, left foot, subsequent encounter for fracture with routine healing Melisa Escobar Vespa, [facility] 11/07/2020 S92.335D Nondisplaced fractur e of third metatarsal bone, left foot, subsequent encounter for fracture with routine healing Melisa M. Vespa, [facility] 11/07/2020 S92.345D Nondisplaced fractur e of fourth metatarsal bone, left foot, subsequent encounter for fracture with routine healing Melisa M. Vespa, [facility] 11/07/2020 S82.65xD Nondisplaced fractur e of lateral malleolus of left fibula, subsequent encounter for closed fracture with routine healing Meilsa M. Vespa, [facility] 11/05/2020 S92.325D Nondisplaced fractur e of second metatarsal bone, left foot, subsequent encounter for fracture with routine healing Melisa M. Vespa, [facility] 11/05/2020 S92.335D Nondisplaced fractur e of third metatarsal bone, left foot, subsequent encounter for fracture with routine healing Melisa M. Vespa, [facility] 11/05/2020 S92.345D Nondisplaced fractur e of fourth metatarsal bone, left foot, subsequent encounter for fracture with routine healing Melisa M. Vespa, [facility] 11/05/2020 S82.65xD Nondisplaced fractur e of lateral malleolus of left fibula, subsequent encounter for closed fracture with routine healing Melisa M. Vespa, [facility] 11/01/2020 S92.325D Nondisplaced fractur e of second metatarsal bone, left foot, subsequent encounter for fracture with routine healing Melisa M. Vespa, [facility] 11/01/2020 S92.335D Nondisplaced fractur e of third metatarsal bone, left foot, subsequent encounter for fracture with routine healing Emlisa M. Vespa, [facility] 11/01/2020 S92.345D Nondisplaced fractur e of fourth metatarsal bone, left foot, subsequent encounter for fracture with routine healing Melisa M. Vespa, [facility] 11/01/2020 S82.65xD Nondisplaced fractur e of lateral malleolus of left fibula, subsequent encounter for closed fracture with routine healing Melisa M. Vespa, [facility] 10/31/2020 S92.325D Nondisplaced fractur e of second [...] subsequent encounter for fracture with routine healing Kar CORINNA Hoff 09/19/2020 S92.325D Nondisplaced fractur e of second [...] left foot, initial encounter for closed fracture Paolo Kingsley. 08/24/2020 S92.335D Nondisplaced fractur e of third metatarsal bone, left foot, subsequent encounter for fracture with routine healing Marty KingsleyA. 08/24/2020 S92.325A Nondisplaced fractur e of second metatarsal bone, left foot, initial encounter for closed fracture Paolo Kingsley. 08/24/2020 S92.345A Nondisplaced fractur e of fourth metatarsal bone, left foot, initial encounter for closed fracture Marty KingsleyA. 08/24/2020 S92.335A Nondisplaced fractur e of third metatarsal bone, left foot, initial encounter for closed fracture Marty KingsleyA. 08/24/2020 S92.345A Nondisplaced fractur e of fourth metatarsal bone, left foot, initial encounter for closed fracture Paolo Kingsley. 08/23/2020 S92.325A Nondisplaced fractur e of second [...] CORINNA Rodriguez Plan of Treatment Future Appointment(s):* 11/13/2020 1:40 pm - CORINNA Rodriguez at [facility] Functional Status Description No Information Available Mental Status Description No Information Available Referrals Refer to Dr Reason for Referral Status Appt Date Kar Sam Pac PT LT ANKLE [id number] [phone] [id number] [id number] WRITTEN AUTH PASSED TO PT DEPT. Created [facility] [address] [address] [phone] Kar Sam Pac DME [id number] 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 Created [facility] [address] [address] [phone]
--- OUTSIDE RECORDS SUMMARY | 2020-12-13 14:05 | CCD | Continuity of Care Document ---
Author Author Bette CONSTANTINO [facility] Organization Unknown Address [address] [place] [address], [facility] [address] [place] [address] Phone [phone] Care Team Providers Care Biology Laboratory Assistant Name Role Phone Chente Pratt AUTM [phone] Nick Garcia MD AUTM [phone] Problems Description No Information Available Social History [...] Information Available Procedures Date Code Description Status 11/22/2020 20706 Therapeutic Procedure, Each 15 M inutes Completed 11/22/2020 99096 Therapeutic Procedure, Each 15 M inutes Completed 11/19/2020 11376 Therapeutic Procedure, Each 15 M inutes Completed 11/19/2020 51344 Therapeutic Procedure, Each 15 M inutes Completed 11/16/2020 44714 Therapeutic Procedure, Each 15 M inutes Completed 11/16/2020 81920 Therapeutic Procedure, Each 15 M inutes Completed 11/12/2020 97710 Therapeutic Procedure, Each 15 M inutes Completed 11/12/2020 54022 Therapeutic Procedure, Each 15 M inutes Completed 11/09/2020 15436 Therapeutic Procedure, Each 15 M inutes Completed 11/09/2020 75649 Therapeutic Procedure, Each 15 M inutes Completed 11/07/2020 28202 Therapeutic Procedure, Each 15 M inutes Completed 11/07/2020 26647 Therapeutic Procedure, Each 15 M inutes Completed 11/05/2020 46763 Therapeutic Procedure, Each 15 M inutes Completed 11/01/2020 34376 Physical Therapy Eval - Low Comp lexity Completed 10/31/2020 58528 X-Ray Foot Complete Completed 10/31/2020 90600 X-Ray Ankle Complete Completed 10/03/2020 85436 X-Ray Foot Complete Completed 10/03/2020 83105 X-Ray Ankle Complete Completed 09/19/2020 70072 X-Ray Foot Complete Completed 09/19/2020 02626 X-Ray Ankle Complete Completed 09/05/2020 66188 X-Ray Foot Complete Completed 09/05/2020 96500 X-Ray Ankle Complete Completed 08/24/2020 05152 Apply Cast Short Leg Walking Com pleted 08/23/2020 11776 X-Ray Foot Complete Completed 08/23/2020 14620 X-Ray Foot Complete Completed 08/23/2020 93278 FX Metatarsal W/O Manipulation C ompleted 08/23/2020 82990 FX Metatarsal W/O Manipulation C ompleted Medical Devices Description No Information Available Encounters Type Date Location Provider Dx Diagnosis Office Visit 11/13/2020 1:40p [place] JARVIS Rodriguez S92.325D Nondisp fx of 2nd metatarsal bone, l ft, 7thD S92.335D Nondisp fx of 3rd metatarsal bone, l ft, 7thD S92.345D Nondisp fx of 4th metatarsal bone, l ft, 7thD S82.65xD Nondisp fx of lateral malleo viviane of l fibula, 7thD Office Visit 10/31/2020 5:30p [place] JARVIS Rodriguez S92.325D Nondisp fx of 2nd metatarsal bone, l ft, 7thD S92.335D Nondisp fx of 3rd metatarsal bone, l ft, 7thD S92.345D Nondisp fx of 4th metatarsal bone, l ft, 7thD S82.65xD Nondisp fx of lateral malleo viviane of l fibula, 7thD Office Visit 10/03/2020 4:00p [place] JARVIS Rodriguez S92.325D Nondisp fx of 2nd metatarsal bone, l ft, 7thD S92.335D Nondisp fx of 3rd metatarsal bone, l ft, 7thD S92.345D Nondisp fx of 4th metatarsal bone, l ft, 7thD S82.65xD Nondisp fx of lateral malleo viviane of l fibula, 7thD Office Visit 09/19/2020 1:30p [place] JARVIS Rodriguez S92.325D Nondisp fx of 2nd metatarsal bone, l ft, 7thD S92.335D Nondisp fx of 3rd metatarsal bone, l ft, 7thD S92.345D Nondisp fx of 4th metatarsal bone, l ft, 7thD S82.65xD Nondisp fx of lateral malleo viviane of l fibula, 7thD Office Visit 09/05/2020 4:45p [place] JARVIS Rodriguez S92.325D Nondisp fx of 2nd metatarsal bone, l ft, 7thD S92.335D Nondisp fx of 3rd metatarsal bone, l ft, 7thD S92.345D Nondisp fx of 4th metatarsal bone, l ft, 7thD S82.65xD Nondisp fx of lateral malleo viviane of l fibula, 7thD Office Visit 08/24/2020 4:45p [place] Sree Kingsley S92.325A Nondisp fx of second metatarsal bone, left foot, init S92.335D Nondisp fx of 3rd metatarsal bone, l ft, 7thD S92.345A Nondisp fx of fourth metatar ammon bone, left foot, init Office Visit 08/23/2020 6:15p [place] JARVIS Rodriguez S92.325A Nondisp fx of second metatarsal bone, left foot, init S92.335A Nondisp fx of third metatars al bone, left foot, init S92.345A Nondisp fx of fourth metatar ammon bone, left foot, init S93.402A Sprain of unspecified ligame nt of left ankle, init encntr Assessments Date Code Description Provider 11/22/2020 S92.325D Nondisplaced fractur e of second metatarsal bone, left foot, subsequent encounter for fracture with routine healing Melisa M. Vespa, [facility] 11/22/2020 S92.335D Nondisplaced fractur e of third metatarsal bone, left foot, subsequent encounter for fracture with routine healing Melisa M. Vespa, [facility] 11/22/2020 S92.345D Nondisplaced fractur e of fourth metatarsal bone, left foot, subsequent encounter for fracture with routine healing Melisa M. Vespa, [facility] 11/22/2020 S82.65xD Nondisplaced fractur e of lateral malleolus of left fibula, subsequent encounter for closed fracture with routine healing Melisa M. Vespa, [facility] 11/19/2020 S92.325D Nondisplaced fractur e of second metatarsal bone, left foot, subsequent encounter for fracture with routine healing Melisa M. Vespa, [facility] 11/19/2020 S92.335D Nondisplaced fractur e of third metatarsal bone, left foot, subsequent encounter for fracture with routine healing Melisa M. Vespa, [facility] 11/19/2020 S92.345D Nondisplaced fractur e of fourth metatarsal bone, left foot, subsequent encounter for fracture with routine healing Melisa M. Vespa, [facility] 11/19/2020 S82.65xD Nondisplaced fractur e of lateral malleolus of left fibula, subsequent encounter for closed fracture with routine healing Melisa M. Vespa, [facility] 11/16/2020 S92.325D Nondisplaced fractur e of second metatarsal bone, left foot, subsequent encounter for fracture with routine healing Melisa M. Vespa, [facility] 11/16/2020 S92.335D Nondisplaced fractur e of third metatarsal bone, left foot, subsequent encounter for fracture with routine healing Melisa M. Vespa, [facility] 11/16/2020 S92.345D Nondisplaced fractur e of fourth metatarsal bone, left foot, subsequent encounter for fracture with routine healing Melisa M. Vira, [facility] 11/16/2020 S82.65xD Nondisplaced fractur e of lateral malleolus of left fibula, subsequent encounter for closed fracture with routine healing Melisa M. Vira, [facility] 11/13/2020 S92.325D Nondisplaced fractur e of second metatarsal bone, left foot, subsequent encounter for fracture with routine healing JARVIS Rodriguez 11/13/2020 S92.335D Nondisplaced fractur e of third metatarsal bone, left foot, subsequent encounter for fracture with routine healing JARVIS Rodriguez 11/13/2020 S92.345D Nondisplaced fractur e of fourth metatarsal bone, left foot, subsequent encounter for fracture with routine healing JARVIS Rodriguez 11/13/2020 S82.65xD Nondisplaced fractur e of lateral malleolus of left fibula, subsequent encounter for closed fracture with routine healing JARVIS Rodriguez 11/12/2020 S92.325D Nondisplaced fractur e of second metatarsal bone, left foot, subsequent encounter for fracture with routine healing Melisa M. Vira, [facility] 11/12/2020 S92.335D Nondisplaced fractur e of third metatarsal bone, left foot, subsequent encounter for fracture with routine healing Melisa M. Devanpa, [facility] 11/12/2020 S92.345D Nondisplaced fractur e of fourth metatarsal bone, left foot, subsequent encounter for fracture with routine healing Melisa M. Vespa, [facility] 11/12/2020 S82.65xD Nondisplaced fractur e of lateral malleolus of left fibula, subsequent encounter for closed fracture with routine healing Melisa M. Vespa, [facility] 11/09/2020 S92.325D Nondisplaced fractur e of second metatarsal bone, left foot, subsequent encounter for fracture with routine healing Melisa M. Vespa, [facility] 11/09/2020 S92.335D Nondisplaced fractur e of third metatarsal bone, left foot, subsequent encounter for fracture with routine healing Melisa M. Devanpa, [facility] 11/09/2020 S92.345D Nondisplaced fractur e of fourth metatarsal bone, left foot, subsequent encounter for fracture with routine healing Melisa M. Vespa, [facility] 11/09/2020 S82.65xD Nondisplaced fractur e of lateral malleolus of left fibula, subsequent encounter for closed fracture with routine healing Melisa M. Vespa, [facility] 11/07/2020 S92.325D Nondisplaced fractur e of second metatarsal bone, left foot, subsequent encounter for fracture with routine healing Melisa M. Vespa, [facility] 11/07/2020 S92.335D Nondisplaced fractur e of third metatarsal bone, left foot, subsequent encounter for fracture with routine healing Melisa M. Vespa, [facility] 11/07/2020 S92.345D Nondisplaced fractur e of fourth metatarsal bone, left foot, subsequent encounter for fracture with routine healing Melisa M. Vespa, [facility] 11/07/2020 S82.65xD Nondisplaced fractur e of lateral malleolus of left fibula, subsequent encounter for closed fracture with routine healing Melisa M. Vespa, [facility] 11/05/2020 S92.325D Nondisplaced fractur e of second metatarsal bone, left foot, subsequent encounter for fracture with routine healing Melisa M. Vespa, [facility] 11/05/2020 S92.335D Nondisplaced fractur e of third metatarsal bone, left foot, subsequent encounter for fracture with routine healing Melisa M. Vespa, [facility] 11/05/2020 S92.345D Nondisplaced fractur e of fourth metatarsal bone, left foot, subsequent encounter for fracture with routine healing Melisa M. Vespa, [facility] 11/05/2020 S82.65xD Nondisplaced fractur e of lateral malleolus of left fibula, subsequent encounter for closed fracture with routine healing Melisa M. Vespa, [facility] 11/01/2020 S92.325D Nondisplaced fractur e of second metatarsal bone, left foot, subsequent encounter for fracture with routine healing Melisa M. Vespa, [facility] 11/01/2020 S92.335D Nondisplaced fractur e of third metatarsal bone, left foot, subsequent encounter for fracture with routine healing Melisa ShoshanaJose Constantino, [facility] 11/01/2020 S92.345D Nondisplaced fractur e of fourth metatarsal bone, left foot, subsequent encounter for fracture with routine healing Melisa Shawn Hartmanjarvis, [facility] 11/01/2020 S82.65xD Nondisplaced fractur e of lateral malleolus of left fibula, subsequent encounter for closed fracture with routine healing Melisa Constantino, [facility] 10/31/2020 S92.325D Nondisplaced fractur e of second metatarsal bone, left foot, subsequent encounter for fracture with routine healing JARVIS Rodriguez 10/31/2020 S92.335D Nondisplaced fractur e of third metatarsal bone, left foot, subsequent encounter for fracture with routine healing JARVIS Rodriguez 10/31/2020 S92.345D Nondisplaced fractur e of fourth metatarsal bone, left foot, subsequent encounter for fracture with routine healing JARVIS Rodriguez 10/31/2020 S82.65xD Nondisplaced fractur e of lateral malleolus of left fibula, subsequent encounter for closed fracture with routine healing JARVIS Rodriguez 10/03/2020 S92.325D Nondisplaced fractur e of second metatarsal bone, left foot, subsequent encounter for fracture with routine healing JARVIS Rodriguez 10/03/2020 S92.335D Nondisplaced fractur e of third metatarsal bone, left foot, subsequent encounter for fracture with routine healing JARVIS Rodriguez 10/03/2020 S92.345D Nondisplaced fractur e of fourth metatarsal bone, left foot, subsequent encounter for fracture with routine healing JARVIS Rodriguez 10/03/2020 S82.65xD Nondisplaced fractur e of lateral malleolus of left fibula, subsequent encounter for closed fracture with routine healing JARVIS Rodriguez 09/19/2020 S92.325D Nondisplaced fractur e of second metatarsal bone, left foot, subsequent encounter for fracture with routine healing JARVIS Rodriguez 09/19/2020 S92.325D Nondisplaced fractur e of second metatarsal bone, left foot, subsequent encounter for fracture with routine healing Kar IJARVIS Jose 09/19/2020 S92.335D Nondisplaced fractur e of third metatarsal bone, left foot, subsequent encounter for fracture with routine healing JARVIS Rodriguez 09/19/2020 S92.335D Nondisplaced fractur e of third metatarsal bone, left foot, subsequent encounter for fracture with routine healing JARVIS Rodriguez 09/19/2020 S92.345D Nondisplaced fractur e of fourth metatarsal bone, left foot, subsequent encounter for fracture with routine healing JARVIS Rodriguez 09/19/2020 S92.345D Nondisplaced fractur e of fourth metatarsal bone, left foot, subsequent encounter for fracture with routine healing JARVIS Rodriguez 09/19/2020 S82.65xD Nondisplaced fractur e of lateral malleolus of left fibula, subsequent encounter for closed fracture with routine healing JARVIS Rodriguez 09/19/2020 S82.65xD Nondisplaced fractur e of lateral malleolus of left fibula, subsequent encounter for closed fracture with routine healing JARVIS Rodriguez 09/05/2020 S92.325D Nondisplaced fractur e of second metatarsal bone, left foot, subsequent encounter for fracture with routine healing JARVIS Rodriguez 09/05/2020 S92.335D Nondisplaced fractur e of third metatarsal bone, left foot, subsequent encounter for fracture with routine healing Kar JARVIS Hoff 09/05/2020 S92.345D Nondisplaced fractur e of fourth metatarsal bone, left foot, subsequent encounter for fracture with routine healing JARVIS Rodriguez 09/05/2020 S82.65xD Nondisplaced fractur e of lateral malleolus of left fibula, subsequent encounter for closed fracture with routine healing JARVIS Rodriguez 08/24/2020 S92.325A Nondisplaced fractur e of second metatarsal bone, left foot, initial encounter for closed fracture Chente KJose Petty P.A. 08/24/2020 S92.335D Nondisplaced fractur e of third metatarsal bone, left foot, subsequent encounter for fracture with routine healing Chente StaciJose Petty P.A. 08/24/2020 S92.325A Nondisplaced fractur e of second metatarsal bone, left foot, initial encounter for closed fracture Chente StaciJose Petty P.A. 08/24/2020 S92.345A Nondisplaced fractur e of fourth metatarsal bone, left foot, initial encounter for closed fracture Chente Ralph Malinda P.A. 08/24/2020 S92.335A Nondisplaced fractur e of third metatarsal bone, left foot, initial encounter for closed fracture Chente Ralph Malinda P.A. 08/24/2020 S92.345A Nondisplaced fractur e of fourth metatarsal bone, left foot, initial encounter for closed fracture Jhon Kingsley.A. 08/23/2020 S92.325A Nondisplaced fractur e of second metatarsal bone, left foot, initial encounter for closed fracture JARVIS Rodriguez 08/23/2020 S92.335A Nondisplaced fractur e of third metatarsal bone, left foot, initial encounter for closed fracture JARVIS Rodriguez 08/23/2020 S92.345A Nondisplaced fractur e of fourth metatarsal bone, left foot, initial encounter for closed fracture JARVIS Rodriguez 08/23/2020 S93.402A Sprain of unspecifie d ligament of left ankle, initial encounter JARVIS Rodriguez Plan of Treatment Future Appointment(s):* 11/26/2020 3:00 pm - SHAYNA Alfaro at Physical Therapy * 12/13/2020 11:30 am - JARVIS Rodriguez at [place] 10/03/2020 - JARVIS Rodriguez* S92.325D Nondisplaced fracture of second metatarsal bone, left foot, subsequent encounter for fracture with routine healing* Follow up:* 4 weeks with IID for left foot/ankle recheck with xrays * S92.335D Nondisplaced fracture of third metatarsal bone, left foot, subsequent encounter for fracture with routine healing * S92.345D Nondisplaced fracture of fourth metatarsal bone, left foot, subsequent encounter for fracture with routine healing * S82.65xD Nondisplaced fracture of lateral malleolus of left fibula, subsequent encounter for closed fracture with routine healing Functional Status Description No Information Available Mental Status Description No Information Available Referrals Refer to Dr Reason for Referral Status Appt Date Kar Sam I, Pac PT LT ANKLE [id number] [id number] WRITTEN AUTH PASSED TO PT DEPT. 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 Created [facility] [address] [address] [phone]
--- OUTSIDE RECORDS SUMMARY | 2020-12-13 14:05 | CCD | Continuity of Care Document ---
Author Author Bette [facility] Organization Unknown Address [address] [place] [address], [facility] [address] [place] [address] Phone [phone] Care Team Providers Care Dance Studio Manager Name Role Phone Chente Pratt AUTM [phone] Nick Garcia MD AUTM [phone] Problems Description No Information Available Social History [...] Available Procedures Date Code Description Status 11/16/2020 95954 Therapeutic Procedure, Each 15 M inutes Completed 11/12/2020 60587 Therapeutic Procedure, Each 15 M inutes Completed 11/12/2020 06961 Therapeutic Procedure, Each 15 M inutes Completed 11/09/2020 83216 Therapeutic Procedure, Each 15 M inutes Completed 11/09/2020 45073 Therapeutic Procedure, Each 15 M inutes Completed 11/07/2020 33005 Therapeutic Procedure, Each 15 M inutes Completed 11/07/2020 36987 Therapeutic Procedure, Each 15 M inutes Completed 11/05/2020 57679 Therapeutic Procedure, Each 15 M inutes Completed 11/01/2020 36061 Physical Therapy Eval - Low Comp lexity Completed 10/31/2020 45234 X-Ray Foot Complete Completed 10/31/2020 76197 X-Ray Ankle Complete Completed 10/03/2020 37077 X-Ray Ankle Complete Completed 10/03/2020 35043 X-Ray Foot Complete Completed 09/19/2020 40484 X-Ray Foot Complete Completed 09/19/2020 76147 X-Ray Ankle Complete Completed 09/05/2020 28173 X-Ray Foot Complete Completed 09/05/2020 45702 X-Ray Ankle Complete Completed 08/24/2020 01164 Apply Cast Short Leg Walking Com pleted 08/23/2020 95530 X-Ray Foot Complete Completed 08/23/2020 50480 X-Ray Foot Complete Completed 08/23/2020 59989 FX Metatarsal W/O Manipulation C ompleted 08/23/2020 50022 FX Metatarsal W/O Manipulation C ompleted Medical Devices Description No Information Available Encounters Type Date Location Provider Dx Diagnosis Office Visit 11/13/2020 1:40p CORINNA Little S92.325D Nondisp fx of 2nd metatarsal bone, l ft, 7thD S92.335D Nondisp fx of 3rd metatarsal bone, l ft, 7thD S92.345D Nondisp fx of 4th metatarsal bone, l ft, 7thD S82.65xD Nondisp fx of lateral malleo viviane of l fibula, 7thD Office Visit 10/03/2020 4:00p CORINNA Little S92.325D Nondisp fx of 2nd metatarsal bone, l ft, 7thD S92.335D Nondisp fx of 3rd metatarsal bone, l ft, 7thD S92.345D Nondisp fx of 4th metatarsal bone, l ft, 7thD S82.65xD Nondisp fx of lateral malleo viviane of l fibula, 7thD Office Visit 09/19/2020 1:30p CORINNA Little S92.325D Nondisp fx of 2nd metatarsal bone, l ft, 7thD S92.335D Nondisp fx of 3rd metatarsal bone, l ft, 7thD S92.345D Nondisp fx of 4th metatarsal bone, l ft, 7thD S82.65xD Nondisp fx of lateral malleo viviane of l fibula, 7thD Office Visit 09/05/2020 4:45p [place] CORINNA Rodriguez S92.325D Nondisp fx of 2nd metatarsal bone, l ft, 7thD S92.335D Nondisp fx of 3rd metatarsal bone, l ft, 7thD S92.345D Nondisp fx of 4th metatarsal bone, l ft, 7thD S82.65xD Nondisp fx of lateral malleo viviane of l fibula, 7thD Office Visit 08/24/2020 4:45p [place] Sree Kingsley S92.325A Nondisp fx of second metatarsal bone, left foot, init S92.335D Nondisp fx of 3rd metatarsal bone, l ft, 7thD S92.345A Nondisp fx of fourth metatar ammon bone, left foot, init Office Visit 08/23/2020 6:15p [place] CORINNA Rodriguez S92.325A Nondisp fx of second metatarsal bone, left foot, init S92.335A Nondisp fx of third metatars al bone, left foot, init S92.345A Nondisp fx of fourth metatar ammon bone, left foot, init S93.402A Sprain of unspecified ligame nt of left ankle, init encntr Assessments Date Code Description Provider 11/13/2020 S92.325D Nondisplaced fractur e of second [...] fracture with routine healing Melisa M. Vespa, [facility] 11/12/2020 S92.335D Nondisplaced fractur e of third metatarsal bone, left foot, subsequent encounter for fracture with routine healing Melisa M. Vespa, [facility] 11/12/2020 S92.345D Nondisplaced fractur e of fourth metatarsal bone, left foot, subsequent encounter for fracture with routine healing Melisa M. Vespa, [facility] 11/12/2020 S82.65xD Nondisplaced fractur e of lateral malleolus of left fibula, subsequent encounter for closed fracture with routine healing Melisa M. Vespa, [facility] 11/09/2020 S92.325D Nondisplaced fractur e of second metatarsal bone, left foot, subsequent encounter for fracture with routine healing Melisa M. Vespa, [facility] 11/09/2020 S92.335D Nondisplaced fractur e of third metatarsal bone, left foot, subsequent encounter for fracture with routine healing Melisa M. Vespa, [facility] 11/09/2020 S92.345D Nondisplaced fractur e of fourth metatarsal bone, left foot, subsequent encounter for fracture with routine healing Melisa M. Vespa, [facility] 11/09/2020 S82.65xD Nondisplaced fractur e of lateral malleolus of left fibula, subsequent encounter for closed fracture with routine healing Melisa M. Vespa, [facility] 11/07/2020 S92.325D Nondisplaced fractur e of second metatarsal bone, left foot, subsequent encounter for fracture with routine healing Melisa M. Vespa, [facility] 11/07/2020 S92.335D Nondisplaced fractur e of third metatarsal bone, left foot, subsequent encounter for fracture with routine healing Melisa M. Vespa, [facility] 11/07/2020 S92.345D Nondisplaced fractur e of fourth metatarsal bone, left foot, subsequent encounter for fracture with routine healing Melisa M. Vespa, [facility] 11/07/2020 S82.65xD Nondisplaced fractur e of lateral malleolus of left fibula, subsequent encounter for closed fracture with routine healing Melisa M. Devanpa, [facility] 11/05/2020 S92.325D Nondisplaced fractur e of second metatarsal bone, left foot, subsequent encounter for fracture with routine healing Melisa M. Vespa, [facility] 11/05/2020 S92.335D Nondisplaced fractur e of third metatarsal bone, left foot, subsequent encounter for fracture with routine healing Melisa M. Vespa, [facility] 11/05/2020 S92.345D Nondisplaced fractur e of fourth metatarsal bone, left foot, subsequent encounter for fracture with routine healing Melisa M. Vespa, [facility] 11/05/2020 S82.65xD Nondisplaced fractur e of lateral malleolus of left fibula, subsequent encounter for closed fracture with routine healing Melisa M. Vespa, [facility] 11/01/2020 S92.325D Nondisplaced fractur e of second metatarsal bone, left foot, subsequent encounter for fracture with routine healing Melisa M. Vespa, [facility] 11/01/2020 S92.335D Nondisplaced fractur e of third metatarsal bone, left foot, subsequent encounter for fracture with routine healing Melisa M. Vespa, [facility] 11/01/2020 S92.345D Nondisplaced fractur e of fourth metatarsal bone, left foot, subsequent encounter for fracture with routine healing Melisa M. Vespa, [facility] 11/01/2020 S82.65xD Nondisplaced fractur e of lateral malleolus of left fibula, subsequent encounter for closed fracture with routine healing Melisa M. Vespa, [facility] 10/31/2020 S92.325D Nondisplaced fractur e of second metatarsal bone, left foot, subsequent encounter for fracture with routine healing CORINNA Rodriguez 10/31/2020 S92.335D Nondisplaced fractur e of third metatarsal bone, left foot, subsequent encounter for fracture with routine healing CORINNA Rodriguez 10/31/2020 S92.345D Nondisplaced fractur e of fourth metatarsal bone, left foot, subsequent encounter for fracture with routine healing Kar ICORINNA Jose 10/31/2020 S82.65xD Nondisplaced fractur e of lateral malleolus of left fibula, subsequent encounter for closed fracture with routine healing Kar ICORINNA Jose 10/03/2020 S92.325D Nondisplaced fractur e of second metatarsal bone, left foot, subsequent encounter for fracture with routine healing Kar ICORINNA Jose 10/03/2020 S92.335D Nondisplaced fractur e of third metatarsal bone, left foot, subsequent encounter for fracture with routine healing Kar ICORINNA Jose 10/03/2020 S92.345D Nondisplaced fractur e of fourth metatarsal bone, left foot, subsequent encounter for fracture with routine healing Kar ICORINNA Jose 10/03/2020 S82.65xD Nondisplaced fractur e of lateral malleolus of left fibula, subsequent encounter for closed fracture with routine healing CORINNA Rodriguez 09/19/2020 S92.325D Nondisplaced fractur e of second metatarsal bone, left foot, subsequent encounter for fracture with routine healing CORINNA Rodriguez 09/19/2020 S92.325D Nondisplaced fractur e of second metatarsal bone, left foot, subsequent encounter for fracture with routine healing Kar ICORINNA Jose 09/19/2020 S92.335D Nondisplaced fractur e of third metatarsal bone, left foot, subsequent encounter for fracture with routine healing CORINNA Rodriguez 09/19/2020 S92.335D Nondisplaced fractur e of third metatarsal bone, left foot, subsequent encounter for fracture with routine healing CORINNA Rodriguez 09/19/2020 S92.345D Nondisplaced fractur e of fourth metatarsal bone, left foot, subsequent encounter for fracture with routine healing Kar ICORINNA Jose 09/19/2020 S92.345D Nondisplaced fractur e of fourth [...] for closed fracture Chente Petty, P.A. 08/24/2020 S92.335D Nondisplaced fractur e of third metatarsal bone, left foot, subsequent encounter for fracture with routine healing Chente Petty, P.A. 08/24/2020 S92.325A Nondisplaced fractur e of second metatarsal bone, left foot, initial encounter for closed fracture Chente Petty, P.A. 08/24/2020 S92.345A Nondisplaced fractur e of fourth metatarsal bone, left foot, initial encounter for closed fracture Chente Petty, P.A. 08/24/2020 S92.335A Nondisplaced fractur e of third metatarsal bone, left foot, initial encounter for closed fracture Chente Petty P.A. 08/24/2020 S92.345A Nondisplaced fractur e of fourth metatarsal bone, left foot, initial encounter for closed fracture Sree Kingsley 08/23/2020 S92.325A Nondisplaced fractur e of second [...] 12/13/2020 11:30 am - CORINNA Rodriguez at [place] * 11/22/2020 3:00 pm - SHAYNA Alfaro at Physical Therapy * 11/19/2020 3:00 pm - SHAYNA Alfaro at Physical Therapy Functional Status Description No Information Available Mental Status Description No Information Available Referrals Refer to Dr Reason for Referral Status Appt Date Kar Sam Pac PT LT ANKLE [id number] WRITTEN AUTH PASSED TO PT DEPT. Created [facility] [address] [address] [phone] Kar Sam Pac DME [id number] 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 Created [facility] [address] [address] [phone]
--- OUTSIDE RECORDS SUMMARY | 2020-12-13 14:05 | CCD | Continuity of Care Document ---
Author Author Bette SAM PA Organization Unknown Address [address] [place] [address], [address] [place] [address] Phone [phone] Care Team Providers Care Cavalry Scout Name Role Phone Chente Pratt AUTM [phone] Nick Garcia MD AUTM [phone] Problems Description No Information Available Social History [...] Available Procedures Date Code Description Status 11/22/2020 70384 Therapeutic Procedure, Each 15 M inutes Completed 11/22/2020 92419 Therapeutic Procedure, Each 15 M inutes Completed 11/19/2020 45911 Therapeutic Procedure, Each 15 M inutes Completed 11/19/2020 98437 Therapeutic Procedure, Each 15 M inutes Completed 11/16/2020 97604 Therapeutic Procedure, Each 15 M inutes Completed 11/16/2020 44029 Therapeutic Procedure, Each 15 M inutes Completed 11/12/2020 65707 Therapeutic Procedure, Each 15 M inutes Completed 11/12/2020 42540 Therapeutic Procedure, Each 15 M inutes Completed 11/09/2020 47273 Therapeutic Procedure, Each 15 M inutes Completed 11/09/2020 40183 Therapeutic Procedure, Each 15 M inutes Completed 11/07/2020 60500 Therapeutic Procedure, Each 15 M inutes Completed 11/07/2020 91430 Therapeutic Procedure, Each 15 M inutes Completed 11/05/2020 85865 Therapeutic Procedure, Each 15 M inutes Completed 11/01/2020 81373 Physical Therapy Eval - Low Comp lexity Completed 10/31/2020 87262 X-Ray Foot Complete Completed 10/31/2020 08395 X-Ray Ankle Complete Completed 10/03/2020 80331 X-Ray Foot Complete Completed 10/03/2020 73621 X-Ray Ankle Complete Completed 09/19/2020 91441 X-Ray Foot Complete Completed 09/19/2020 55022 X-Ray Ankle Complete Completed 09/05/2020 10078 X-Ray Foot Complete Completed 09/05/2020 73757 X-Ray Ankle Complete Completed 08/24/2020 73510 Apply Cast Short Leg Walking Com pleted 08/23/2020 06679 X-Ray Foot Complete Completed 08/23/2020 21312 X-Ray Foot Complete Completed 08/23/2020 23377 FX Metatarsal W/O Manipulation C ompleted 08/23/2020 31084 FX Metatarsal W/O Manipulation C ompleted Medical Devices Description No Information Available Encounters Type Date Location Provider Dx Diagnosis Office Visit 11/13/2020 1:40p [place] JARVIS Rodriguez S92.325D Nondisp fx of 2nd metatarsal bone, l ft, 7thD S92.335D Nondisp fx of 3rd metatarsal bone, l ft, 7thD S92.345D Nondisp fx of 4th metatarsal bone, l ft, 7thD S82.65xD Nondisp fx of lateral malleo viviane of l fibula, 7thD Office Visit 10/31/2020 5:30p [place] JARVIS Rodriguez S92.325D Nondisp fx of 2nd metatarsal bone, l ft, 7thD S92.335D Nondisp fx of 3rd metatarsal bone, l ft, 7thD S92.345D Nondisp fx of 4th metatarsal bone, l ft, 7thD S82.65xD Nondisp fx of lateral malleo viviane of l fibula, 7thD Office Visit 10/03/2020 4:00p [place] JARVIS Rodriguez S92.325D Nondisp fx of 2nd metatarsal bone, l ft, 7thD S92.335D Nondisp fx of 3rd metatarsal bone, l ft, 7thD S92.345D Nondisp fx of 4th metatarsal bone, l ft, 7thD S82.65xD Nondisp fx of lateral malleo viviane of l fibula, 7thD Office Visit 09/19/2020 1:30p [place] JARVIS Rodriguez S92.325D Nondisp fx of 2nd metatarsal bone, l ft, 7thD S92.335D Nondisp fx of 3rd metatarsal bone, l ft, 7thD S92.345D Nondisp fx of 4th metatarsal bone, l ft, 7thD S82.65xD Nondisp fx of lateral malleo viviane of l fibula, 7thD Office Visit 09/05/2020 4:45p [place] JARVIS Rodriguez S92.325D Nondisp fx of 2nd metatarsal bone, l ft, 7thD S92.335D Nondisp fx of 3rd metatarsal bone, l ft, 7thD S92.345D Nondisp fx of 4th metatarsal bone, l ft, 7thD S82.65xD Nondisp fx of lateral malleo viviane of l fibula, 7thD Office Visit 08/24/2020 4:45p [place] Sree Kingsley S92.325A Nondisp fx of second metatarsal bone, left foot, init S92.335D Nondisp fx of 3rd metatarsal bone, l ft, 7thD S92.345A Nondisp fx of fourth metatar ammon bone, left foot, init Office Visit 08/23/2020 6:15p [place] JARVIS Rodriguez S92.325A Nondisp fx of second [...] fracture with routine healing Melisa M. Vespa, [facility] 11/22/2020 S92.335D Nondisplaced fractur e of third metatarsal bone, left foot, subsequent encounter for fracture with routine healing Melisa M. Vespa, [facility] 11/22/2020 S92.345D Nondisplaced fractur e of fourth metatarsal bone, left foot, subsequent encounter for fracture with routine healing Melisa M. Vespa, [facility] 11/22/2020 S82.65xD Nondisplaced fractur e of lateral malleolus of left fibula, subsequent encounter for closed fracture with routine healing Melisa M. Vespa, [facility] 11/19/2020 S92.325D Nondisplaced fractur e of second metatarsal bone, left foot, subsequent encounter for fracture with routine healing Melisa M. Vespa, [facility] 11/19/2020 S92.335D Nondisplaced fractur e of third metatarsal bone, left foot, subsequent encounter for fracture with routine healing Melisa M. Vespa, [facility] 11/19/2020 S92.345D Nondisplaced fractur e of fourth metatarsal bone, left foot, subsequent encounter for fracture with routine healing Melisa M. Vespa, [facility] 11/19/2020 S82.65xD Nondisplaced fractur e of lateral malleolus of left fibula, subsequent encounter for closed fracture with routine healing Melisa M. Vespa, [facility] 11/16/2020 S92.325D Nondisplaced fractur e of second metatarsal bone, left foot, subsequent encounter for fracture with routine healing Melisa M. Vespa, [facility] 11/16/2020 S92.335D Nondisplaced fractur e of third metatarsal bone, left foot, subsequent encounter for fracture with routine healing Melisa M. Vespa, [facility] 11/16/2020 S92.345D Nondisplaced fractur e of fourth metatarsal bone, left foot, subsequent encounter for fracture with routine healing [facility] Vir[facility], [facility] 11/16/2020 S82.65xD Nondisplaced fractur e of lateral malleolus of left fibula, subsequent encounter for closed fracture with routine healing Melisa M. Vira, [facility] 11/13/2020 S92.325D Nondisplaced fractur e of second [...] fracture with routine healing Melisa M. Vira, [facility] 11/12/2020 S92.335D Nondisplaced fractur e of third metatarsal bone, left foot, subsequent encounter for fracture with routine healing Melisa M. Devanpa, [facility] 11/12/2020 S92.345D Nondisplaced fractur e of fourth metatarsal bone, left foot, subsequent encounter for fracture with routine healing Melisa M. Vespa, [facility] 11/12/2020 S82.65xD Nondisplaced fractur e of lateral malleolus of left fibula, subsequent encounter for closed fracture with routine healing Melisa M. Vespa, [facility] 11/09/2020 S92.325D Nondisplaced fractur e of second metatarsal bone, left foot, subsequent encounter for fracture with routine healing Melisa M. Vespa, [facility] 11/09/2020 S92.335D Nondisplaced fractur e of third metatarsal bone, left foot, subsequent encounter for fracture with routine healing Melisa M. Devanpa, [facility] 11/09/2020 S92.345D Nondisplaced fractur e of fourth metatarsal bone, left foot, subsequent encounter for fracture with routine healing Melisa M. Vespa, [facility] 11/09/2020 S82.65xD Nondisplaced fractur e of lateral malleolus of left fibula, subsequent encounter for closed fracture with routine healing Melisa M. Vespa, [facility] 11/07/2020 S92.325D Nondisplaced fractur e of second metatarsal bone, left foot, subsequent encounter for fracture with routine healing Melisa M. Vespa, [facility] 11/07/2020 S92.335D Nondisplaced fractur e of third metatarsal bone, left foot, subsequent encounter for fracture with routine healing Melisa M. Vespa, [facility] 11/07/2020 S92.345D Nondisplaced fractur e of fourth metatarsal bone, left foot, subsequent encounter for fracture with routine healing Melisa M. Vespa, [facility] 11/07/2020 S82.65xD Nondisplaced fractur e of lateral malleolus of left fibula, subsequent encounter for closed fracture with routine healing Melisa M. Vespa, [facility] 11/05/2020 S92.325D Nondisplaced fractur e of second metatarsal bone, left foot, subsequent encounter for fracture with routine healing Melisa M. Vespa, [facility] 11/05/2020 S92.335D Nondisplaced fractur e of third metatarsal bone, left foot, subsequent encounter for fracture with routine healing Melisa M. Vespa, [facility] 11/05/2020 S92.345D Nondisplaced fractur e of fourth metatarsal bone, left foot, subsequent encounter for fracture with routine healing Melisa M. Vespa, [facility] 11/05/2020 S82.65xD Nondisplaced fractur e of lateral malleolus of left fibula, subsequent encounter for closed fracture with routine healing Melisa M. Vespa, [facility] 11/01/2020 S92.325D Nondisplaced fractur e of second metatarsal bone, left foot, subsequent encounter for fracture with routine healing Melisa M. Vespa, [facility] 11/01/2020 S92.335D Nondisplaced fractur e of third metatarsal bone, left foot, subsequent encounter for fracture with routine healing Melisa ShoshanaJose Constantino, [facility] 11/01/2020 S92.345D Nondisplaced fractur e of fourth metatarsal bone, left foot, subsequent encounter for fracture with routine healing Melisa Shawn Hartmanjarvis, [facility] 11/01/2020 S82.65xD Nondisplaced fractur e of lateral malleolus of left fibula, subsequent encounter for closed fracture with routine healing Melisa Constantino, [facility] 10/31/2020 S92.325D Nondisplaced fractur e of second [...] closed fracture Chente StaciJose Petty P.A. 08/24/2020 S92.335A Nondisplaced fractur e of third metatarsal bone, left foot, initial encounter for closed fracture Chente StaciJose Petty, P.A. 08/24/2020 S92.345A Nondisplaced fractur e of fourth metatarsal bone, left foot, initial encounter for closed fracture Chente Petty P.A. 08/23/2020 S92.325A Nondisplaced fractur e of second metatarsal bone, left foot, initial encounter for closed fracture JARVIS Rodriguez 08/23/2020 S92.335A Nondisplaced fractur e of third metatarsal bone, left foot, initial encounter for closed fracture JARVIS Rodriguez 08/23/2020 S92.345A Nondisplaced fractur e of fourth metatarsal bone, left foot, initial encounter for closed fracture JARVIS Rodrigeuz 08/23/2020 S93.402A Sprain of unspecifie d ligament of left ankle, initial encounter JARVIS Rodriguez Plan of Treatment Future Appointment(s):* 12/13/2020 11:30 am - JARVIS Rodriguez at [place] 10/03/2020 - JARVIS Rodriguez* S92.325D Nondisplaced fracture [...] Referral Status Appt Date Kar Sam I, Paul PT LT ANKLE [id number] [id number] WRITTEN AUTH PASSED TO PT DEPT. Created [facility] [address] [address] [phone] Kar Sam I, Paul DME [id number] 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 Created [facility] [address] [address] [phone]
--- OUTSIDE RECORDS SUMMARY | 2020-12-13 14:05 | CCD ---
Continuity of Care Document (CCD) Created on: 11/09/2020 Bette Lou External Reference #: [id number] : [id number] Sex: Female Author Author Bette GONG MD Organization Unknown Address [address] [place] [address] Phone [phone] Care Team Providers Care Rn Midwife Name Role Phone Abdiel Valladares AUTM [phone] [facility] AUTM [phone] Sheri Gong MD AUTM [phone] [facility] AUTM [phone] [facility] AUTM [phone] Problems Active Problems Provider Date Anxiety state [...] CPT Code Status Date Vaccine Lot # 41082 Given 06/26/2016 Influenza (>35 months) P.F. Vaccine 12354 Given 09/26/2010 Influenza Virus Vaccine Split Virus [...] Date Facility Test Result H/L Range Note CBC No Diff 11/08/2020 [facility] CBC No Diff (SEE NOTE) 1 WBC 5.7 10^3/uL 4.2 - 11.0 RBC 4.88 10^6/uL 4.20 - 5.40 Hemoglobin 15.3 g/dL 12.0 - 16.0 Hematocrit 44.5 % 37.0 - 47.0 MCV 91.2 fL 81.0 - 101 MCH 31.4 pg 27.0 - 34.0 MCHC 34.4 g/dL 31.0 - 36.0 RDW 12.5 % 11.5 - 14.5 Platelets 263 10^3/uL 150 - 450 MPV 9.4 fL 7.4 - 10.4 Iron Binding Capacity 11/08/2020 [facility] Iron 76 g/dL 42 - 135 Uibc 204 g/dL 112 - 347 Tibc 280 g/dL 250 - 450 Iron Sat 27 % Laboratory test finding [facility] Ferritin Minerva 17.3 ng/mL 3.0 - 105 Cuture Urine 05/29/2020 [facility] Culture Urine (SEE NOTE) 2, 3 Chlamydia GC/Am 05/29/2020 [facility] Source: Genital 4 Chlamydia trachomatis,Kayla Negative Negative Neisseria gonorrhoeae,Kayla Negative Negative Laboratory test finding 05/29/2020 In Office Inhouse Urine Test negative 1 COMPLETE BLOOD COUNT 2 {SPECIMEN TYPE: RANDOM 3 _CULTURE URINE_ ^$542188 ^^896852 $$426735 ^^497605 $$823957 $$335268 $$094476 $$012198 $$131900 $$596259 $$823251 $$177275 $$367927 $$225667 $$470508 $$064672 $$315258 $$890103 $$583724 $$870830 $$135283 $$734658 $$736778 $$425641 $$719235 $$740731 $$069261 ^^981913 $$145919 $$529007 $$709292 -- Continued on next page -- Patient: EVARISTO Badillo Order: [id number] Page 2 Culture: CULTURE URINE Status: Final -- Continued on next page -- Patient: EVARISTO Badillo Order: [id number] Page 2 Culture: CULTURE URINE Status: Prelim -- Continued on next page -- Patient: EVARISTO Badillo Order: [id number] Page 2 Culture: CULTURE URINE Status: Prelim $$[id number] $$[id number] REPORTED DATE/TIME: 06/02/2020 10:06 Culture: CULTURE URINE Status: Final Urine Culture,Comprehensive: P1 No growth in 36 - 48 hours. Previous result entered on 06/01/2020 14:02 ET No growth after 18-24 hours. Previous result entered on 06/01/2020 05:39 ET Specimen has been received and testing has been initiated. P1 Test performed by: [facility] #: [id number] 69 [facility] [id number] [facility] [address] Spring Coiler : Roque Mayberry MD NPI #: Bell Clerk : 06/01/20.0909.XMT.SENT REF 06/02/20.0626.XMT.SENT REF 06/02/20.1133.XMT.SENT REF 4 {SOURCE: Genital Procedures Description No Information Available [...] 3:40 pm - Sheri Gong MD at [facility] Functional Status Description No Information Available Mental Status Description No Information Available Referrals Refer to Reason for Referral Status Appt [facility] 25-year-old female with acute onset back pain. She has history of L5 vertebral fracture as a child. Please evaluate and treat as needed. Thank you. Patient Declined [address] [place] [address] [phone] [facility] 25-year-old female with acut e onset back pain. Please evaluate and treat as needed. Thank you. Closed [address] [place] [address] [phone]
--- OUTSIDE RECORDS SUMMARY | 2020-12-13 14:05 | CCD | Continuity of Care Document ---
Author Author Bette GONG MD Organization Unknown Address [address] [place] [address] Phone [phone] Care Team Providers Care Permastone Applicator Name Role Phone Abdiel Valladares AUTM [phone] [facility] AUTM [phone] Sheri Gong MD AUTM [phone] [facility] AUTM [phone] [facility] AUTM [phone] Problems Active Problems Provider Date Anxiety state [...] CPT Code Status Date Vaccine Lot # 52371 Given 06/26/2016 Influenza (>35 months) P.F. Vaccine 53182 Given 09/26/2010 Influenza Virus Vaccine Split Virus [...] H/L Range Note CBC No Diff 11/08/2020 [facility] CBC No Diff (SEE NOTE) [...] 7.4 - 10.4 Iron Binding Capacity 11/08/2020 [facility] Iron 76 g/dL 42 - 135 Uibc 204 g/dL 112 - 347 Tibc 280 g/dL 250 - 450 Iron Sat 27 % Laboratory test finding 11/08/2020 [facility] l Ferritin Minerva 17.3 ng/mL 3.0 - 105 FSH Serum 2.9 mIU/mL 2 LH 3.3 mIU/mL 3 Estradiol Serum 69.8 pg/mL 4 Cuture Urine 05/29/2020 [facility] Culture Urine (SEE NOTE) 5, 6 Chlamydia GC/Am 05/29/2020 [facility] Source: Genital 7 Chlamydia trachomatis,Kayla Negative Negative Neisseria gonorrhoeae,Kayla Negative Negative Laboratory test finding 05/29/2020 In Office Inhouse Urine Test negative 1 COMPLETE BLOOD COUNT 2 Adult Female: Follicular phase 3.5 - 12.5 Ovulation phase 4.7 - 21.5 Luteal phase 1.7 - 7.7 Postmenopausal 25.8 - 134.8 3 Adult Female: Follicular phase 2.4 - 12.6 Ovulation phase 14.0 - 95.6 Luteal phase 1.0 - 11.4 Postmenopausal 7.7 - 58.5 4 Adult Female: Follicular phase 12.5 - 166.0 Ovulation phase 85.8 - 498.0 Luteal phase 43.8 - 211.0 Postmenopausal <6.0 - 54.7 1st trimester 215.0 - >4300.0 Ld ECLIA methodology 5 {SPECIMEN TYPE: RANDOM 6 _CULTURE URINE_ ^$259644 ^^361880 $$586795 ^^810563 $$422189 $$658784 $$175676 $$771177 $$299346 $$274422 $$427722 $$140752 $$954641 $$224042 $$662191 $$742963 $$609458 $$918874 $$061960 $$657220 $$984075 $$366623 $$036456 $$592325 $$682297 $$880549 $$205923 ^^334396 $$421611 $$169587 $$082611 -- Continued on next page -- Patient: EVARISTO ARCHIBALD A Order: [id number] Page 2 Culture: CULTURE URINE Status: Final -- Continued on next page -- Patient: EVARISTO Badillo Order: [id number] Page 2 Culture: CULTURE URINE Status: Prelim -- Continued on next page -- Patient: EVARISTO ARCHIBALD A Order: [id number] Page 2 Culture: CULTURE URINE Status: Prelim $$[id number] $$[id number] REPORTED DATE/TIME: 06/02/2020 10:06 Culture: CULTURE URINE Status: Final Urine Culture,Comprehensive: P1 No growth in 36 - 48 hours. Previous result entered on 06/01/2020 14:02 ET No growth after 18-24 hours. Previous result entered on 06/01/2020 05:39 ET Specimen has been received and testing has been initiated. P1 Test performed by: [facility] CLIA #: [id number] [address] [id number] [facility] [address] Xray Tech : Roque Mayberry MD NPI #: Marble [employer]ber : 06/01/20.0909.XMT.SENT REF 06/02/20.0626.XMT.SENT REF 06/02/20.1133.XMT.SENT REF 7 {SOURCE: Genital Procedures Description No Information Available [...] 3:40 pm - Sheri Gong MD at [facility] Functional Status Description No Information Available Mental Status Description No Information Available Referrals Refer to Reason for Referral Status Appt Date [facility] 25-year-old female with acute onset back pain. She has history of L5 vertebral fracture as a child. Please evaluate and treat as needed. Thank you. Patient Declined [address] [place] [address] [phone] [facility] 25-year-old female with acut e onset back pain. Please evaluate and treat as needed. Thank you. Closed [address] [place] [address] [phone]
--- OUTSIDE RECORDS SUMMARY | 2020-12-13 14:05 | CCD | Continuity of Care Document ---
Author Author Bette SAM PA Organization Unknown Address [address] [place] [address], [address] [place] [address] Phone [phone] Care Team Providers Care Extrusion Bender Name Role Phone Chente Pratt AUTM [phone] Nick Garcia MD AUTM [phone] Problems Description No Information Available Social History [...] Information Available Procedures Date Code Description Status 11/12/2020 68888 Therapeutic Procedure, Each 15 M inutes Completed 11/12/2020 11755 Therapeutic Procedure, Each 15 M inutes Completed 11/09/2020 19861 Therapeutic Procedure, Each 15 M inutes Completed 11/09/2020 89777 Therapeutic Procedure, Each 15 M inutes Completed 11/07/2020 17393 Therapeutic Procedure, Each 15 M inutes Completed 11/07/2020 58322 Therapeutic Procedure, Each 15 M inutes Completed 11/05/2020 54696 Therapeutic Procedure, Each 15 M inutes Completed 11/01/2020 45721 Physical Therapy Eval - Low Comp lexity Completed 10/31/2020 41841 X-Ray Foot Complete Completed 10/31/2020 35101 X-Ray Ankle Complete Completed 10/03/2020 52711 X-Ray Ankle Complete Completed 10/03/2020 77573 X-Ray Foot Complete Completed 09/19/2020 74024 X-Ray Foot Complete Completed 09/19/2020 87661 X-Ray Ankle Complete Completed 09/05/2020 63297 X-Ray Foot Complete Completed 09/05/2020 90752 X-Ray Ankle Complete Completed 08/24/2020 13165 Apply Cast Short Leg Walking Com pleted 08/23/2020 51377 X-Ray Foot Complete Completed 08/23/2020 51774 X-Ray Foot Complete Completed 08/23/2020 99477 FX Metatarsal W/O Manipulation C ompleted 08/23/2020 65017 FX Metatarsal W/O Manipulation C ompleted Medical Devices Description No Information Available Encounters Type Date Location Provider Dx Diagnosis Office Visit 11/13/2020 1:[place]p [place] S92.325D Nondisp fx of 2nd metatarsal bone, l ft, 7thD S92.335D Nondisp fx of 3rd metatarsal bone, l ft, 7thD S92.345D Nondisp fx of 4th metatarsal bone, l ft, 7thD S82.65xD Nondisp fx of lateral malleo viviane of l fibula, 7thD Office Visit 10/31/2020 5:30p JARVIS Little S92.325D Nondisp fx of 2nd metatarsal bone, l ft, 7thD S92.335D Nondisp fx of 3rd metatarsal bone, l ft, 7thD S92.345D Nondisp fx of 4th metatarsal bone, l ft, 7thD S82.65xD Nondisp fx of lateral malleo viviane of l fibula, 7thD Office Visit 10/03/2020 4:00p JARVIS Little S92.325D Nondisp fx of 2nd metatarsal bone, l ft, 7thD S92.335D Nondisp fx of 3rd metatarsal bone, l ft, 7thD S92.345D Nondisp fx of 4th metatarsal bone, l ft, 7thD S82.65xD Nondisp fx of lateral malleo viviane of l fibula, 7thD Office Visit 09/19/2020 1:30p [place] JARVIS Rodriguez S92.325D Nondisp fx of 2nd metatarsal bone, l ft, 7thD S92.335D Nondisp fx of 3rd metatarsal bone, l ft, 7thD S92.345D Nondisp fx of 4th metatarsal bone, l ft, 7thD S82.65xD Nondisp fx of lateral malleo viviane of l fibula, 7thD Office Visit 09/05/2020 4:45p [place] JARVIS Rodriguez S92.325D Nondisp fx of 2nd metatarsal bone, l ft, 7thD S92.335D Nondisp fx of 3rd metatarsal bone, l ft, 7thD S92.345D Nondisp fx of 4th metatarsal bone, l ft, 7thD S82.65xD Nondisp fx of lateral malleo viviane of l fibula, 7thD Office Visit 08/24/2020 4:45p [place] Chente Petty, [place]. S92.325A Nondisp fx of second metatarsal bone, left foot, init S92.335D Nondisp fx of 3rd metatarsal bone, l ft, 7thD S92.345A Nondisp fx of fourth metatar ammon bone, left foot, init Office Visit 08/23/2020 6:15p [place] JARVIS Rodriguez S92.325A Nondisp fx of second [...] for fracture with routine healing Melisa M. Vesjarvis, [facility] 11/12/2020 S92.335D Nondisplaced fractur e of third metatarsal bone, left foot, subsequent encounter for fracture with routine healing Melisa M. Vespa, [facility] 11/12/2020 S92.345D Nondisplaced fractur e of fourth metatarsal bone, left foot, subsequent encounter for fracture with routine healing Melisa M. Vespa, [facility] 11/12/2020 S82.65xD Nondisplaced fractur e of lateral malleolus of left fibula, subsequent encounter for closed fracture with routine healing Melisa M. Vespa, [facility] 11/09/2020 S92.325D Nondisplaced fractur e of second metatarsal bone, left foot, subsequent encounter for fracture with routine healing Melisa M. Vespa, [facility] 11/09/2020 S92.335D Nondisplaced fractur e of third metatarsal bone, left foot, subsequent encounter for fracture with routine healing Melisa M. Vespa, [facility] 11/09/2020 S92.345D Nondisplaced fractur e of fourth metatarsal bone, left foot, subsequent encounter for fracture with routine healing Melisa M. Vespa, [facility] 11/09/2020 S82.65xD Nondisplaced fractur e of lateral malleolus of left fibula, subsequent encounter for closed fracture with routine healing Melisa M. Vespa, [facility] 11/07/2020 S92.325D Nondisplaced fractur e of second metatarsal bone, left foot, subsequent encounter for fracture with routine healing Melisa M. Vespa, [facility] 11/07/2020 S92.335D Nondisplaced fractur e of third metatarsal bone, left foot, subsequent encounter for fracture with routine healing Melisa M. Vespa, [facility] 11/07/2020 S92.345D Nondisplaced fractur e of fourth metatarsal bone, left foot, subsequent encounter for fracture with routine healing Melisa M. Vespa, [facility] 11/07/2020 S82.65xD Nondisplaced fractur e of lateral malleolus of left fibula, subsequent encounter for closed fracture with routine healing Melisa M. Vespa, [facility] 11/05/2020 S92.325D Nondisplaced fractur e of second metatarsal bone, left foot, subsequent encounter for fracture with routine healing Melisa M. Vespa, [facility] 11/05/2020 S92.335D Nondisplaced fractur e of third metatarsal bone, left foot, subsequent encounter for fracture with routine healing Melisa M. Vespa, [facility] 11/05/2020 S92.345D Nondisplaced fractur e of fourth metatarsal bone, left foot, subsequent encounter for fracture with routine healing Melisa M. Vespa, [facility] 11/05/2020 S82.65xD Nondisplaced fractur e of lateral malleolus of left fibula, subsequent encounter for closed fracture with routine healing Melisa M. Vespa, [facility] 11/01/2020 S92.325D Nondisplaced fractur e of second metatarsal bone, left foot, subsequent encounter for fracture with routine healing Melisa M. Vespa, [facility] 11/01/2020 S92.335D Nondisplaced fractur e of third metatarsal bone, left foot, subsequent encounter for fracture with routine healing Melisa M. Vespa, [facility] 11/01/2020 S92.345D Nondisplaced fractur e of fourth metatarsal bone, left foot, subsequent encounter for fracture with routine healing Melisa M. Vespa, [facility] 11/01/2020 S82.65xD Nondisplaced fractur e of lateral malleolus of left fibula, subsequent encounter for closed fracture with routine healing Melisa M. Vespa, [facility] 10/31/2020 S92.325D Nondisplaced fractur e of second metatarsal bone, left foot, subsequent encounter for fracture with routine healing Kar IJARVIS Jose 10/31/2020 S92.335D Nondisplaced fractur e of third metatarsal bone, left foot, subsequent encounter for fracture with routine healing Kar IJARVIS Jose 10/31/2020 S92.345D Nondisplaced fractur e of fourth metatarsal bone, left foot, subsequent encounter for fracture with routine healing Kar IJARVIS Jose 10/31/2020 S82.65xD Nondisplaced fractur e of lateral malleolus of left fibula, subsequent encounter for closed fracture with routine healing Kar IJARVIS Jose 10/03/2020 S92.325D Nondisplaced fractur e of second metatarsal bone, left foot, subsequent encounter for fracture with routine healing JARVIS Rodriguez 10/03/2020 S92.335D Nondisplaced fractur e of third metatarsal bone, left foot, subsequent encounter for fracture with routine healing Kar IJARVIS Jose 10/03/2020 S92.345D Nondisplaced fractur e of fourth metatarsal bone, left foot, subsequent encounter for fracture with routine healing Kar IJARVIS Jose 10/03/2020 S82.65xD Nondisplaced fractur e of lateral malleolus of left fibula, subsequent encounter for closed fracture with routine healing Kar IJARVIS Jose 09/19/2020 S92.325D Nondisplaced fractur e of second metatarsal bone, left foot, subsequent encounter for fracture with routine healing Kar IJARVIS Jose 09/19/2020 S92.325D Nondisplaced fractur e of second metatarsal bone, left foot, subsequent encounter for fracture with routine healing Kar JARVIS Hoff 09/19/2020 S92.335D Nondisplaced fractur e of third metatarsal bone, left foot, subsequent encounter for fracture with routine healing Kar JARVIS Hoff 09/19/2020 S92.335D Nondisplaced fractur e of third metatarsal bone, left foot, subsequent encounter for fracture with routine healing Kar JARVIS Hoff 09/19/2020 S92.345D Nondisplaced fractur e of fourth [...] fracture with routine healing JARVIS Rodriguez 09/05/2020 S92.345D Nondisplaced fractur e of [...] subsequent encounter for fracture with routine healing Paolo Kingsley. 08/24/2020 S92.325A Nondisplaced fractur e of second metatarsal bone, left foot, initial encounter for closed fracture Paolo Kingsley. 08/24/2020 S92.345A Nondisplaced fractur e of fourth metatarsal bone, left foot, initial encounter for closed fracture Sree Kingsley 08/24/2020 S92.335A Nondisplaced fractur e of third [...] 12/13/2020 11:30 am - JARVIS Rodriguez at [place] * 11/22/2020 3:00 pm - SHAYNA Alfaro at Physical Therapy * 11/19/2020 3:00 pm - SHAYNA Alfaro at Physical Therapy * 11/16/2020 10:00 am - SHAYNA Alfaro at Physical Therapy Functional Status Description No Information Available Mental Status Description No Information Available Referrals Refer to Dr Reason for Referral Status Appt Date Kar Sam Pac PT LT ANKLE [id number] [phone] WRITTEN AUTH PASSED TO PT DEPT. Created [facility] [address] [address] [phone] Kar Sam Pac DME [id number] 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 Created [facility] [address] [address] [phone]
--- OUTSIDE RECORDS SUMMARY | 2020-12-13 14:06 | CCD | Continuity of Care Document ---
Author Author Bette CONSTANTINO RUSTT Organization Unknown Address [address] [place] [address], [facility] [address] [place] [address] Phone [phone] Care Team Providers Care Municipal Clerk Name Role Phone Chente Pratt AUTM [phone] Nick Garcia MD AUTM [phone] Problems Description No Information Available Social History [...] Information Available Procedures Date Code Description Status 11/01/2020 14990 Physical Therapy Eval - Low Comp lexity Completed 10/31/2020 68636 X-Ray Foot Complete Completed 10/31/2020 04709 X-Ray Ankle Complete Completed 10/03/2020 93789 X-Ray Foot Complete Completed 10/03/2020 57539 X-Ray Ankle Complete Completed 09/19/2020 81296 X-Ray Foot Complete Completed 09/19/2020 46335 X-Ray Ankle Complete Completed 09/05/2020 44414 X-Ray Foot Complete Completed 09/05/2020 17696 X-Ray Ankle Complete Completed 08/24/2020 37297 Apply Cast Short Leg Walking Com pleted 08/23/2020 84598 X-Ray Foot Complete Completed 08/23/2020 58692 X-Ray Foot Complete Completed 08/23/2020 79974 FX Metatarsal W/O Manipulation C ompleted 08/23/2020 92524 FX Metatarsal W/O Manipulation C ompleted Medical Devices Description No Information Available Encounters Type Date Location Provider Dx Diagnosis Office Visit 10/31/2020 5:30p [place] CORINNA Rodriguez S92.325D Nondisp fx of 2nd metatarsal bone, l ft, 7thD S92.335D Nondisp fx of 3rd metatarsal bone, l ft, 7thD S92.345D Nondisp fx of 4th metatarsal bone, l ft, 7thD S82.65xD Nondisp fx of lateral malleo viviane of l fibula, 7thD Office Visit 10/03/2020 4:00p [place] CORINNA Rodriguez S92.325D Nondisp fx of 2nd metatarsal bone, l ft, 7thD S92.335D Nondisp fx of 3rd metatarsal bone, l ft, 7thD S92.345D Nondisp fx of 4th metatarsal bone, l ft, 7thD S82.65xD Nondisp fx of lateral malleo viviane of l fibula, 7thD Office Visit 09/19/2020 1:30p [place] CORINNA Rodriguez S92.325D Nondisp fx of 2nd metatarsal bone, l ft, 7thD S92.335D Nondisp fx of 3rd metatarsal bone, l ft, 7thD S92.345D Nondisp fx of 4th metatarsal bone, l ft, 7thD S82.65xD Nondisp fx of lateral malleo viviane of l fibula, 7thD Office Visit 09/05/2020 4:45p [place] CORINNA Rodriguez S92.325D Nondisp fx of 2nd metatarsal bone, l ft, 7thD S92.335D Nondisp fx of 3rd metatarsal bone, l ft, 7thD S92.345D Nondisp fx of 4th metatarsal bone, l ft, 7thD S82.65xD Nondisp fx of lateral malleo viviane of l fibula, 7thD Office Visit 08/24/2020 4:45p [place] Sree Kingsley S92.325A Nondisp fx of second metatarsal bone, left foot, init S92.335D Nondisp fx of 3rd metatarsal bone, l ft, 7thD S92.345A Nondisp fx of fourth metatar ammon bone, left foot, init Office Visit 08/23/2020 6:15p [place] CORINNA Rodriguez S92.325A Nondisp fx of second metatarsal bone, left foot, init S92.335A Nondisp fx of third metatars al bone, left foot, init S92.345A Nondisp fx of fourth metatar ammon bone, left foot, init S93.402A Sprain of unspecified ligame nt of left ankle, init encntr Assessments Date Code Description Provider 11/01/2020 S92.325D Nondisplaced fractur e of second metatarsal bone, left foot, subsequent encounter for fracture with routine healing Melisa Constantino, [facility] 11/01/2020 S92.335D Nondisplaced fractur e of third metatarsal bone, left foot, subsequent encounter for fracture with routine healing Melisa Constantino, [facility] 11/01/2020 S92.345D Nondisplaced fractur e of fourth metatarsal bone, left foot, subsequent encounter for fracture with routine healing Melisa Constantino, [facility] 11/01/2020 S82.65xD Nondisplaced fractur e of lateral malleolus of left fibula, subsequent encounter for closed fracture with routine healing Melisa Constantino, [facility] 10/31/2020 S92.325D Nondisplaced fractur e of second metatarsal bone, left foot, subsequent encounter for fracture with routine healing CORINNA Rodriguez 10/31/2020 S92.335D Nondisplaced fractur e of third metatarsal bone, left foot, subsequent encounter for fracture with routine healing CORINNA Rodriguez 10/31/2020 S92.345D Nondisplaced fractur e of fourth metatarsal bone, left foot, subsequent encounter for fracture with routine healing Kar MartinezCORINNA Jose 10/31/2020 S82.65xD Nondisplaced fractur e of [...] encounter for closed fracture with routine healing COIRNNA Rodriguez 09/19/2020 S92.325D Nondisplaced fractur e of [...] - SHAYNA Alfaro at Physical Therapy * 11/07/2020 1:30 pm - SHAYNA Alfaro at Physical Therapy * 11/13/2020 1:40 pm - CORINNA Rodriguez at [place] Functional Status Description No Information Available Mental Status Description No Information Available Referrals Refer to Dr Reason for Referral Status Appt Date Kar Sam Pac PT LT ANKLE [phone] [phone] [phone] [phone] WRITTEN AUTH PASSED TO PT DEPT. Created [facility] [address] [address] [phone] Kar Sam I, Paul DME L4361 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 Created [facility] [address] [address] [phone]
--- OUTSIDE RECORDS SUMMARY | 2020-12-13 14:06 | CCD | Continuity of Care Document ---
Author Author Bette SAM PA Organization Unknown Address [address] [place] [address], [facility] e [address] [place] [address] Phone [phone] Care Team Providers Care Child Welfare Director Name Role Phone Chente Pratt AUTM [phone] Problems Description No Information Available Social History [...] every 4-6 hours as needed pain (comp) 12tabs Keaton Branham MD 08/23/2020 Immunizations Description No Information Available Vital Signs Date Vital Result Comment 09/05/2020 5:07pm Body Temperature 97.1 F Results Description No Information Available Procedures Date Code Description Status 09/05/2020 85378 X-Ray Foot Complete Completed 09/05/2020 00168 X-Ray Ankle Complete Completed 08/24/2020 96257 Apply Cast Short Leg Walking Com pleted 08/23/2020 16798 X-Ray Foot Complete Completed 08/23/2020 51129 X-Ray Foot Complete Completed 08/23/2020 05340 FX Metatarsal W/O Manipulation C ompleted 08/23/2020 37266 FX Metatarsal W/O Manipulation C ompleted Medical Devices Description No Information Available Encounters Type Date Location Provider Dx Diagnosis Office Visit 09/05/2020 4:45p [place] CORINNA Rodriguez S92.325D Nondisp fx of 2nd metatarsal bone, l ft, 7thD S92.335D Nondisp fx of 3rd metatarsal bone, l ft, 7thD S92.345D Nondisp fx of 4th metatarsal bone, l ft, 7thD S82.65xD Nondisp fx of lateral malleo viviane of l fibula, 7thD Office Visit 08/24/2020 4:45p [place] Chente Petty P.A. S92.325A Nondisp fx of second metatarsal bone, left foot, init S92.335D Nondisp fx of 3rd metatarsal bone, l ft, 7thD S92.345A Nondisp fx of fourth metatar ammon bone, left foot, init Office Visit 08/23/2020 6:15p [place] CORINNA Rodriguez S92.325A Nondisp fx of second metatarsal bone, left foot, init S92.335A Nondisp fx of third metatars al bone, left foot, init S92.345A Nondisp fx of fourth metatar ammon bone, left foot, init S93.402A Sprain of unspecified ligame nt of left ankle, init encntr Assessments Date Code Description Provider 09/05/2020 S92.325D Nondisplaced fractur e of second [...] CORINNA Rodriguez Plan of Treatment Future Appointment(s):* 09/19/2020 1:30 pm - CORINNA Rodriguez at [place] 09/05/2020 - CORINNA Rodriguez* S92.325D Nondisplaced fracture of second metatarsal bone, left foot, subsequent encounter for fracture with routine healing* Follow up:* 2 weeks with IID for left foot recheck xrays of foot and ankle in cast * S92.335D Nondisplaced fracture of third metatarsal [...] to Reason for Referral Status Appt Date Kar Sam I, Pac DME L4361 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 LS Created [address] [facility] [address] [place] [address] [phone]
--- OUTSIDE RECORDS SUMMARY | 2020-12-13 14:06 | CCD | Continuity of Care Document ---
Author Author Bette SAM PA Organization Unknown Address [address] [facility], [facility] e [address] [place] [address] Phone [phone] Care Team Providers Care Drawer Maker Name Role Phone Chente Pratt AUTM [phone] Nick Garcia MD AUTM [phone] Problems Description No Information Available Social History [...] Information Available Procedures Date Code Description Status 10/31/2020 29457 X-Ray Foot Complete Completed 10/31/2020 54748 X-Ray Ankle Complete Completed 10/03/2020 80701 X-Ray Foot Complete Completed 10/03/2020 30073 X-Ray Ankle Complete Completed 09/19/2020 69597 X-Ray Foot Complete Completed 09/19/2020 50446 X-Ray Ankle Complete Completed 09/05/2020 87315 X-Ray Foot Complete Completed 09/05/2020 77674 X-Ray Ankle Complete Completed 08/24/2020 79059 Apply Cast Short Leg Walking Com pleted 08/23/2020 60386 X-Ray Foot Complete Completed 08/23/2020 28614 X-Ray Foot Complete Completed 08/23/2020 21442 FX Metatarsal W/O Manipulation C ompleted 08/23/2020 07587 FX Metatarsal W/O Manipulation C ompleted Medical Devices Description No Information Available Encounters Type Date Location Provider Dx Diagnosis Office Visit 10/31/2020 5:30p CORINNA Little S92.325D Nondisp fx of 2nd [...] l fibula, 7thD Office Visit 09/05/2020 4:45p [place] S92.325D Nondisp fx of 2nd metatarsal bone, l ft, 7thD S92.335D Nondisp fx of 3rd metatarsal bone, l ft, 7thD S92.345D Nondisp fx of 4th metatarsal bone, l ft, 7thD S82.65xD Nondisp fx of lateral malleo viviane of l fibula, 7thD Office Visit 08/24/2020 4:45p [place] Sree Kingsley S92.325A Nondisp fx of second metatarsal bone, left foot, init S92.335D Nondisp fx of 3rd metatarsal bone, l ft, 7thD S92.345A Nondisp fx of fourth metatar ammon bone, left foot, init Office Visit 08/23/2020 6:15p [place] CORINNA Rodriguez S92.325A Nondisp fx of second metatarsal bone, left foot, init S92.335A Nondisp fx of third metatars al bone, left foot, init S92.345A Nondisp fx of fourth metatar ammon bone, left foot, init S93.402A Sprain of unspecified ligame nt of left ankle, init encntr Assessments Date Code Description Provider 10/31/2020 S92.325D Nondisplaced fractur e of second [...] subsequent encounter for fracture with routine healing KarCORINNA Johnson 09/05/2020 S82.65xD Nondisplaced fractur e of lateral [...] CORINNA Rodriguez Plan of Treatment Future Appointment(s):* 11/01/2020 10:30 am - [facility] Alfaro [facility] 10/31/2020 - CORINNA Rodriguez* S92.325D Nondisplaced fracture of second metatarsal bone, left foot, subsequent encounter for fracture with routine healing * S92.335D Nondisplaced fracture of third metatarsal [...] Kar Sam I, Pac PT LT ANKLE 91347 [id number] [id number] WRITTEN AUTH PASSED TO PT DEPT. 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 Created [facility] [address] [address] [phone]
--- OUTSIDE RECORDS SUMMARY | 2020-12-13 14:06 | CCD | Continuity of Care Document ---
Author Author Bette SAM PA Organization Unknown Address [address] [place] [address], [facility] [address] [place] [address] Phone [phone] Care Team Providers Care Pet Training Instructor Name Role Phone Chente Pratt AUTM [phone] Problems Description No Information Available Social History [...] 4-6 hours as needed pain (comp) 12tabs Jose Angel Patel MD 1 Immunizations Description No Information Available Vital Signs Date Vital Result Comment 09/05/2020 5:07pm Body Temperature 97.1 F Results Description No Information Available Procedures Date Code Description Status 09/19/2020 21238 X-Ray Foot Complete Completed 09/19/2020 28445 X-Ray Ankle Complete Completed 09/05/2020 82302 X-Ray Foot Complete Completed 09/05/2020 70671 X-Ray Ankle Complete Completed 08/24/2020 32988 Apply Cast Short Leg Walking Com pleted 08/23/2020 44416 X-Ray Foot Complete Completed 08/23/2020 52818 X-Ray Foot Complete Completed 08/23/2020 33889 FX Metatarsal W/O Manipulation C ompleted 08/23/2020 23205 FX Metatarsal W/O Manipulation C ompleted Medical Devices Description No Information Available Encounters Type Date Location Provider Dx Diagnosis Office Visit 09/19/2020 1:30p [place] CORINNA Rodriguez S92.325D Nondisp fx of 2nd metatarsal bone, l ft, 7thD S92.335D Nondisp fx of 3rd metatarsal bone, l ft, 7thD S92.345D Nondisp fx of 4th metatarsal bone, l ft, 7thD S82.65xD Nondisp fx of lateral malleo viviane of l fibula, 7thD Office Visit 09/05/2020 4:45p [place] CORINNA Rodriguez S92.325D Nondisp fx of 2nd metatarsal bone, l ft, 7thD S92.335D Nondisp fx of 3rd metatarsal bone, l ft, 7thD S92.345D Nondisp fx of 4th metatarsal bone, l ft, 7thD S82.65xD Nondisp fx of lateral malleo viviane of l fibula, 7thD Office Visit 08/24/2020 4:45p [place] Chente Petty PBernie. S92.325A Nondisp fx of second metatarsal bone, left foot, init S92.335D Nondisp fx of 3rd metatarsal bone, l ft, 7thD S92.345A Nondisp fx of fourth metatar ammon bone, left foot, init Office Visit 08/23/2020 6:15p [place] CORINNA Rodriguez S92.325A Nondisp fx of second metatarsal bone, left foot, init S92.335A Nondisp fx of third metatars al bone, left foot, init S92.345A Nondisp fx of fourth metatar ammon bone, left foot, init S93.402A Sprain of unspecified ligame nt of left ankle, init encntr Assessments Date Code Description Provider 09/19/2020 S92.325D Nondisplaced fractur e of second [...] subsequent encounter for fracture with routine healing Sree Kingsley 08/24/2020 S92.325A Nondisplaced fractur e of second metatarsal bone, left foot, initial encounter for closed fracture Jhon Kingsley.A. 08/24/2020 S92.345A Nondisplaced fractur e of fourth metatarsal bone, left foot, initial encounter for closed fracture Jhon Kingsley.A. 08/24/2020 S92.335A Nondisplaced fractur e of third [...] CORINNA Rodriguez Plan of Treatment Future Appointment(s):* 10/03/2020 4:00 pm - CORINNA Rodriguez at [place] 09/19/2020 - CORINNA Rodriguez* S92.325D Nondisplaced fracture of second metatarsal bone, left foot, subsequent encounter for fracture with routine healing* Follow up:* 2 weeks lt foot re-check w/xrays out of cast * S92.335D Nondisplaced fracture of third [...] AIR WALKER PER WEB. LS Created [address] [facility] [address] [place] [address] [phone]
--- OUTSIDE RECORDS SUMMARY | 2020-12-13 14:06 | CCD | Continuity of Care Document ---
Author Author Bette SAM PA Organization Unknown Address [address] [place] [address], [facility] [address] [place] [address] Phone [phone] Care Team Providers Care Transit Police Officer Name Role Phone Chente Pratt AUTM [phone] Problems Description No Information Available Social History [...] 4-6 hours as needed pain (comp) 12tabs D. Wilner Maldonado MD 08/23/2020 Immunizations Description No Information Available Vital Signs Date Vital Result Comment 09/05/2020 5:07pm Body Temperature 97.1 F Results Description No Information Available Procedures Date Code Description Status 09/19/2020 46288 X-Ray Foot Complete Completed 09/19/2020 94627 X-Ray Ankle Complete Completed 09/05/2020 20440 X-Ray Foot Complete Completed 09/05/2020 62040 X-Ray Ankle Complete Completed 08/24/2020 49815 Apply Cast Short Leg Walking Com pleted 08/23/2020 23864 X-Ray Foot Complete Completed 08/23/2020 71636 X-Ray Foot Complete Completed 08/23/2020 08281 FX Metatarsal W/O Manipulation C ompleted 08/23/2020 00238 FX Metatarsal W/O Manipulation C ompleted Medical Devices Description No Information Available Encounters Type Date Location Provider Dx Diagnosis Office Visit 09/05/2020 4:45p [place] CORINNA Rodriguez S92.325D Nondisp fx of 2nd metatarsal bone, l ft, 7thD S92.335D Nondisp fx of 3rd metatarsal bone, l ft, 7thD S92.345D Nondisp fx of 4th metatarsal bone, l ft, 7thD S82.65xD Nondisp fx of lateral malleo viviane of l fibula, 7thD Office Visit 08/24/2020 4:45p [place] Sree Kingsley S92.325A Nondisp fx of second metatarsal bone, left foot, init S92.335D Nondisp fx of 3rd metatarsal bone, l ft, 7thD S92.345A Nondisp fx of fourth metatar ammon bone, left foot, init Office Visit 08/23/2020 6:15p [place] CORINNA Rodriguez S92.325A Nondisp fx of second [...] initial encounter CORINNA Rodriguez Plan of Treatment 09/19/2020 - CORINNA Rodriguez* S92.325D Nondisplaced fracture [...] Referral Status Appt Date Kar Sam Pac DME L4361 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 LS Created [facility] [address] [place] [address] [phone]
--- OUTSIDE RECORDS SUMMARY | 2020-12-13 14:06 | CCD | Continuity of Care Document ---
Author Author Bette SAM PA Organization Unknown Address [address] [place] [address], [facility] [address] [place] [address] Phone [phone] Care Team Providers Care Tank Officer Name Role Phone Chente Pratt AUTM [phone] Problems Description No Information Available Social History [...] Available Procedures Date Code Description Status 09/19/2020 52816 X-Ray Foot Complete Completed 09/19/2020 67239 X-Ray Ankle Complete Completed 09/05/2020 14589 X-Ray Foot Complete Completed 09/05/2020 96107 X-Ray Ankle Complete Completed 08/24/2020 96992 Apply Cast Short Leg Walking Com pleted 08/23/2020 50580 X-Ray Foot Complete Completed 08/23/2020 99799 X-Ray Foot Complete Completed 08/23/2020 48028 FX Metatarsal W/O Manipulation C ompleted 08/23/2020 62066 FX Metatarsal W/O Manipulation C ompleted Medical Devices Description No Information Available Encounters Type Date Location Provider Dx Diagnosis Office Visit 09/19/2020 1:30p [place] CORINNA Rodriguez S92.325D Nondisp fx of 2nd metatarsal bone, l ft, 7thD S92.335D Nondisp fx of 3rd metatarsal bone, l ft, 7thD S92.345D Nondisp fx of 4th metatarsal bone, l ft, 7thD S82.65xD Nondisp fx of lateral malleo viviane of l fibula, 7thD Office Visit 09/05/2020 4:45p [place] CORINNA Rodriguez S92.325D Nondisp fx of 2nd metatarsal bone, l ft, 7thD S92.335D Nondisp fx of 3rd metatarsal bone, l ft, 7thD S92.345D Nondisp fx of 4th metatarsal bone, l ft, 7thD S82.65xD Nondisp fx of lateral malleo viviane of l fibula, 7thD Office Visit 08/24/2020 4:45p [place] Chente Petty PBernie. S92.325A Nondisp fx of second metatarsal bone, left foot, init S92.335D Nondisp fx of 3rd metatarsal bone, l ft, 7thD S92.345A Nondisp fx of fourth metatar ammon bone, left foot, init Office Visit 08/23/2020 6:15p [place] CORINNA Rodriguez S92.325A Nondisp fx of second [...] 10/03/2020 4:00 pm - CORINNA Rodriguez at [place] 09/19/2020 - CORINNA Rodriguez* S92.325D Nondisplaced fracture [...] AIR WALKER PER WEB. LS Created [address] [facility] [address] [place] [address] [phone]
--- OUTSIDE RECORDS SUMMARY | 2020-12-13 14:06 | CCD | Continuity of Care Document ---
Author Author Bette SAM PA Organization Unknown Address [address] [place] [address], [facility] e [address] [place] [address] Phone [phone] Care Team Providers Care Body Die Maker Name Role Phone Chente Pratt AUTM [phone] Problems Description No Information Available Social History [...] 4-6 hours as needed pain (comp) 24tabs Jose Angel Patel MD 1 Immunizations Description No Information Available Vital Signs Date Vital Result Comment 09/05/2020 5:07pm Body Temperature 97.1 F Results Description No Information Available Procedures Date Code Description Status 10/03/2020 11004 X-Ray Ankle Complete Completed 09/19/2020 17224 X-Ray Foot Complete Completed 09/19/2020 00476 X-Ray Ankle Complete Completed 09/05/2020 67010 X-Ray Foot Complete Completed 09/05/2020 68189 X-Ray Ankle Complete Completed 08/24/2020 25072 Apply Cast Short Leg Walking Com pleted 08/23/2020 79317 X-Ray Foot Complete Completed 08/23/2020 62757 X-Ray Foot Complete Completed 08/23/2020 35814 FX Metatarsal W/O Manipulation C ompleted 08/23/2020 70621 FX Metatarsal W/O Manipulation C ompleted Medical Devices Description No Information Available Encounters Type Date Location Provider Dx Diagnosis Office Visit 10/03/2020 4:00p [place] CORINNA Rodriguez S92.325D Nondisp fx of 2nd metatarsal bone, l ft, 7thD S92.335D Nondisp fx of 3rd metatarsal bone, l ft, 7thD S92.345D Nondisp fx of 4th metatarsal bone, l ft, 7thD S82.65xD Nondisp fx of lateral malleo viviane of l fibula, 7thD Office Visit 09/19/2020 1:30p [place] CORINNA oRdriguez S92.325D Nondisp fx of 2nd metatarsal bone, l ft, 7thD S92.335D Nondisp fx of 3rd metatarsal bone, l ft, 7thD S92.345D Nondisp fx of 4th metatarsal bone, l ft, 7thD S82.65xD Nondisp fx of lateral malleo viviane of l fibula, 7thD Office Visit 09/05/2020 4:45p [place] CORINNA Rodriguez S92.325D Nondisp fx of 2nd metatarsal bone, l ft, 7thD S92.335D Nondisp fx of 3rd metatarsal bone, l ft, 7thD S92.345D Nondisp fx of 4th metatarsal bone, l ft, 7thD S82.65xD Nondisp fx of lateral malleo viviane of l fibula, 7thD Office Visit 08/24/2020 4:45p [place] Chente Petty, P.A. S92.325A Nondisp fx of second metatarsal bone, left foot, init S92.335D Nondisp fx of 3rd metatarsal bone, l ft, 7thD S92.345A Nondisp fx of fourth metatar ammon bone, left foot, init Office Visit 08/23/2020 6:15p [place] CORINNA Rodriguez S92.325A Nondisp fx of second metatarsal bone, left foot, init S92.335A Nondisp fx of third metatars al bone, left foot, init S92.345A Nondisp fx of fourth metatar ammon bone, left foot, init S93.402A Sprain of unspecified ligame nt of left ankle, init encntr Assessments Date Code Description Provider 10/03/2020 S92.325D Nondisplaced fractur e of second [...] initial encounter CORINNA Rodriguez Plan of Treatment 10/03/2020 - CORINNA Rodriguez* S92.325D Nondisplaced fracture of [...] AIR WALKER PER WEB. LS Created [address] [facility] [address] [place] [address] [phone]
--- OUTSIDE RECORDS SUMMARY | 2020-12-13 14:07 | CCD ---
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 00 AM EST [facility] ([facility]) RADEX FOOT COMPLETE MINIMUM 3 VIEWS 09/05/2020 12:00:0 0 AM EST [facility] ([facility]) Apply Cast Short Leg Walking 08/24/2020 12:00:00 AM ED T [facility] ([facility] ) FX Metatarsal W/O Manipulation 08/23/2020 12:00:00 AM EDT [facility] ([facility]) FX Metatarsal W/O Manipulation 08/23/2020 12:00:00 AM EDT [facility] ([facility]) RADEX FOOT COMPLETE MINIMUM 3 VIEWS 08/23/2020 12:00:0 0 AM EDT [facility] ([facility]) RADEX FOOT COMPLETE MINIMUM 3 VIEWS 08/23/2020 12:00:0 0 AM EDT [facility] ([facility] ) Brief Emotional/Behav Assessment W/ Scoring Doc Per Standard Inst 04/24/2020 12:00:00 AM EDT [facility] ([facility]) Admin Patient Focused Health Risk Assessment Instrument 04/24/2020 12:00:00 AM EDT [facility] ([facility]) Transvaginal obstetric ultrasonography (procedure) 01/22/2020 07:21:00 PM [facility] Ultrasonography in first trimester (procedure) 020 07:21:00 PM [facility] Urine Culture 01/22/2020 12:00:00 AM [facility] Results ID Date Data Source [id number] 11/09/2020 09:48:00 AM [facility] Name Value Range Interpretation Code Description Data Ana Luisa rce(s) Supporting Document(s) Estradiol (E2) [Mass/volume] in Serum or Plasma 69.8 pg/mL [facility] Adult Female: Follicular phase 12.5 - 166.0 Ovulation phase 85.8 - 498.0 Luteal phase 43.8 - 211.0 Postmenopausal <6.0 - 54.7 1st trimester 215.0 - >4300.0Roche ECLIA methodology ID Date Data Source [id number] 11/09/2020 09:48:00 AM [facility] Value Range Interpretation Code Description Data Ana Luisa rce(s) Supporting Document(s) Follitropin [Units/volume] in Serum or Plasma 2.9 mIU/mL [facility] Adult Female: Follicular phase 3.5 - 12.5 Ovulation phase 4.7 - 21.5 Luteal phase 1.7 - 7.7 Postmenopausal 25.8 - 134.8 ID Date Data Source [id number] 11/09/2020 09:48:00 AM [facility] Name Value Range Interpretation Code Description Data Ana Luisa rce(s) Supporting Document(s) Lutropin [Units/volume] in Serum or Plasma 3.3 mIU/mL [facility] Adult Female: Follicular phase 2.4 - 12.6 Ovulation phase 14.0 - 95.6 Luteal phase 1.0 - 11.4 Postmenopausal 7.7 - 58.5 ID Date Data Source [id number] 11/08/2020 02:30:00 PM [facility] Value Range Interpretation Code Description Data Ana Luisa rce(s) Supporting Document(s) Ferritin [Mass/volume] in Serum or Plasma 17.3 ng/mL 3.0 - 105 [facility] ID Date Data Source [id number] 11/08/2020 02:26:00 PM [facility] Value Range Interpretation Code Description Data Ana Luisa rce(s) Supporting Document(s) Iron [Mass/volume] in Serum or Plasma 76 UG/DL 42 - 135 [facility] Iron binding capacity.unsaturated [Mass/volume] in Serum or Plasma 204 UG/DL 112 - 347 [facility] Iron binding capacity [Mass/volume] in Serum or Plasma 280 ug/dL 250 - 450 [facility] Iron saturation [Mass Fraction] in Serum or Plasma 27 % [facility] ID Date Data Source [id number] 11/08/2020 01:39:00 PM [facility] Value Range Interpretation Code Description Data Ana Luisa rce(s) Supporting Document(s) CBC NO DIFF [facility] ital COMPLETE BLOOD COUNT Leukocytes [#/volume] in Blood by Automated count 5.7 10^3/uL 4.2 - 1 1.0 [facility] Erythrocytes [#/volume] in Blood by Automated count 4.88 10^6/uL 4. 20 - 5.40 [facility] Hemoglobin [Mass/volume] in Blood 15.3 g/dL 12.0 - 16.0 [facility] Hematocrit [Volume Fraction] of Blood by Automated count 44.5 % 3 7.0 - 47.0 [facility] Erythrocyte mean corpuscular volume [Entitic volume] by Auto mated count 91.2 fL 81.0 - 101 [facility] Erythrocyte mean corpuscular hemoglobin [Entitic mass] by Automated count 31.4 pg 27.0 - 34.0 [facility] Erythrocyte mean corpuscular hemoglobin concentration [Mass/volume] by Automated count 34.4 g/dL 31.0 - 36.0 [facility] Erythrocyte distribution width [Ratio] by Automated count 12.5 % 11.5 - 14.5 [facility] Platelets [#/volume] in Blood by Automated count 263 10^3/uL 150 - 45 0 [facility] Platelet mean volume [Entitic volume] in Blood by Automated count 9.4 fL 7.4 - 10.4 [facility] ID Date Data Source [id number] 11/08/2020 09:00:00 AM EST [facility] ([facility]) Name Value Range Interpretation Code Description Data Ana Luisa rce(s) Supporting Document(s) Follitropin [Units/volume] in Serum or Plasma 2.9 mIU/mL [facility] ([facility]) Adult Female: Follicular phase 3.5 - 12.5 Ovulation phase 4.7 - 21.5 Luteal phase 1.7 - 7.7 Postmenopausal 25.8 - 134.8 Ferritin [Mass/volume] in Serum or Plasma 17.3 ng/mL 3.0-105 [facility] ([facility]) Estradiol (E2) [Mass/volume] in Serum or Plasma 69.8 pg/mL [facility] <content>Adult Female:</content>
<co ntent>Follicular phase 12.5 - 166.0</content>
<content>Ovulation phase 85.8 - 498.0</content>
<content>Luteal phase 43.8 - 211.0</content>
<content>Postmenopausal <6.0 - 54.7</content>
<content></content>
<content>1st trimester 215.0 - >4300.0</content>
<content>Ld ECLIA methodology</content>
<content></content> Lutropin [Units/volume] in Serum or Plasma 3.3 mIU/mL [facility] ([facility]) Adult Female: Follicular phase 2.4 - 12.6 Ovulation phase 14.0 - 95.6 Luteal phase 1.0 - 11.4 Postmenopausal 7.7 - 58.5 ID Date Data Source [id number] 11/08/2020 09:00:00 AM EST [facility] ([facility]) Name Value Range Interpretation Code Description Data Ana Luisa rce(s) Supporting Document(s) Iron 76 ug/dL 42-135 [facility] ([facility]) Uibc 204 ug/dL 112-347 [facility] ([facility]) Iron Sat 27 % [facility] ([facility]) Tibc 280 ug/dL 250-450 [facility] ([facility]) ID Date Data Source [id number] 11/08/2020 09:00:00 AM EST [facility] ([facility]) Name Value Range Interpretation Code Description Data Ana Luisa rce(s) Supporting Document(s) CBC No Diff Laboratory test result [facility] ([facility]) COMPLETE BLOOD COUNT WBC 5.7 10^3/uL 4.2-11.0 [facility] ([facility]) Hemoglobin 15.3 g/dL 12.0-16.0 [facility] ([facility]) Hematocrit 44.5 % 37.0-47.0 [facility] ([facility]) RBC 4.88 10^6/uL 4.20-5.40 [facility] ([facility]) MCH 31.4 pg 27.0-34.0 [facility] ([facility]) MCHC 34.4 g/dL 31.0-36.0 [facility] ([facility]) MCV 91.2 fL 81.0-101 [facility] ([facility]) RDW 12.5 % 11.5-14.5 [facility] ([facility]) MPV 9.4 fL 7.4-10.4 [facility] ([facility]) Platelets 263 10^3/uL 150-450 [facility] ([facility]) ID Date Data Source [id number] 11/08/2020 09:00:00 AM EST [facility] ([facility]) Name Value Range Interpretation Code Description Data Ana Luisa rce(s) Supporting Document(s) Iron [Mass/volume] in Serum or Plasma Laboratory test result [facility] ([facility]) Iron binding capacity [Mass/volume] in Serum or Plasma Laborator y test result [facility] ([facility]) Ferritin [Mass/volume] in Serum or Plasma Laboratory test result [facility] ([facility]) Estradiol (E2) [Mass/volume] in Serum or Plasma Laboratory test resul t [facility] ([facility]) Lutropin [Units/volume] in Serum or Plasma Laboratory test result [facility] ([facility]) Follitropin [Units/volume] in Serum or Plasma Laboratory test result [facility] ([facility]) ID Date Data Source [id number] 08/20/2020 05:32:00 PM EDT [facility] [address] [place] [address] PHONE: [phone] FAX: [phone] Name .................. : RUBINAYADIRA Badillo Acct Number.................. : [id number] ROOM. ................. : TR-1A MR Number ................... : [id number] Stay type ............. : E/R Discharge Date......... ... : 08/19/20 Admit Date ......... : 08/19/20 Admit Phys .................... : GREY SHAGUFTA Date of ....... : 1995 Family Phys ................... : JORGE HARD Phone .................. : [phone] Age ................................ : 25 Film# .................. .:[id number] Sex ................................. : F Unsigned transcriptions are preliminary reports and do not represent a medical or legal [place] [id number] COMPLETE:08/19/20 10:01 RORY 85840 Reason(s): Ankle Injury LEFT ANKLE X-RAY: INDICATION: Ankle injury. FINDINGS/IMPRESSION: There is no fracture or dislocation. No significant degenerative change. No joint effusion or soft tissue swelling is appreciated. Electronically Reviewed and Signed By Wayne Ring M.D. , 08/20/20 17:32, [facility] Transcribe Initials: VINOD , Transcribe Date: 08/19/20 11:35, Dictation Date: Copy for: EMERGENC[place] DEPT [place] [facility] Copy for: 710 MED REC DISCHARGED Page 1 of 1 Name Value Range Interpretation Code Description Data Ana Luisa rce(s) Supporting Document(s) ID Date Data Source [id number] 08/19/2020 09:24:00 AM EDT [facility] 1 OrderSheet [facility] Emergency Department [address] [place] [address] Phone #: ext- [phone] 08/19/2020 09:20 Patient: DRAGAN LOERA Sex: F : 1995 Age: 25yWEIGHT:74.8 kg (S) HEIGHT:69 inches (S) BMI:24.4ALLERGIES: No Known Drug AllergyCHIEF COMPLAINT: Lt, ankleDIAGNOSIS: Sprain of jointLAB ORDERSOrder Description Priority Entered Acknowledged InitialedDIAGNOSTIC STUDY ORDERSOrder Description Priority Entered Acknowledged InitialedAnkle Complete STAT 09:27 08/19/2020 Ack'd: 09:31 09:53 BurnhamLeft (Oxygen?(No)) Donna Aponte boiler washer, Jeff DAVIS Physician; R.N. Tech1 Reason for Study: Ankle Injury, Ankle Pain, Trauma/InjuryMEDICATION/IV/DRIP/FLUID ORDERSOrder Description Priority Entered Acknowledged InitialedToradol IM 60 mg 09:29 08/19/2020 Ack'd: 09:31 09:38 David,(NOW) Donna Aponte R.N. Physician; R.N.GENERAL ORDERSOrder Description Priority Entered Acknowledged InitialedCrutches 10:21 08/19/2020 10:31 Tori Gibbs RN Physician;Jorge Wrap 10:21 08/19/2020 10:30 Tori Gibbs RN Physician;Splint (Aircast) L 10:30 08/19/2020 10:30 Dania Gibbs RN Physician;[Electronically signed by Tori Gibbs RN (10:47 08/19/2020)][Electronically signed by Madhav Edmonds Physician (12:42 08/19/2020)][Electronically locked by Tori Gibbs RN (10:47 08/19/2020)] 2 OrderSheet [facility] Emergency Department [address] [place] [address] Phone #: ext- [phone] 08/19/2020 09:20 Patient: DRAGAN LOERA Sex: F : 1995 Age: 25y Name Value Range Interpretation Code Description Data Ana Luisa rce(s) Supporting Document(s) ID Date Data Source [id number] 08/19/2020 09:24:00 AM EDT [facility] 1 Medication Reconciliation Report [facility] Emergency Department [address] [place] [address] Phone #: ext- [phone] 08/19/2020 09:20 Patient: DRAGAN LOERA Sex: F : 1995 Age: 25yWeight: 74.8 kgHeight/Length: 69 in.BMI: 24.4ALLERGIES: No Known Drug AllergyThe patient's Home Medications are listed below:THE FOLLOWING MEDICATIONS NEED TO BE RECONCILED: Depo-Provera IntramuscularThe source(s) of the original Home Medication information:jarvis galloThe following Medications were given to the patient in the Emergency Department:Toradol [IM] IM 60 mg, administered: 08/19/2020 9:35:00 AMThe following Medications were prescribed to the patient:ketorolac 10 mg tablet Take 1 tablet every eight hours as needed for 5 days -- for ankle injury. [id number] tablet. Refills: 0. Substitution permitted.Pharmacy - [id number] - [address] [place], [place] [id number]. . -- Madhav Edmonds, Physician Name Value Range Interpretation Code Description Data Ana Luisa rce(s) Supporting Document(s) ID Date Data Source [id number] 08/19/2020 09:24:00 AM EDT [facility] 1 Medication Administration Record [facility] Emergency Department [address] [place] [address] Phone #: [phone] 08/19/2020 09:20 Patient: DRAGAN LOERA Sex: F : 1995 Age: 25yWeight: 74.8 kgHeight/Length: 69 inBMI: 24.4ALLERGIES: No Known Drug Allergy Date/Time Medication Administered Medication OrderedGiven TORADOL [IM] (KETOROLAC Toradol IM 60 mg (NOW)09:35 08/19/2020 TROMETHAMINE)Donna Hernandez R.N. Dose: 60 mg IM Name Value Range Interpretation Code Description Data Ana Luisa rce(s) Supporting Document(s) ID Date Data Source [id number] 08/19/2020 09:24:00 AM EDT [facility] 1 General Instructions [facility] Emergency Department [address] [place] [address] Phone #: ext- [phone] 08/19/2020 09:20 Patient: DRAGAN LOERA Sex: F : 1995 Age: 25ySprain of the anterior talo-fibular and deltoid ligament of the left ankle.INSTRUCTIONSApply ice. Use crutches. Wear elastic wrap (Jorge wrap) as directed. Elevate affected areas above chestlevel. You may walk and bear weight as tolerated. Do not work for seven days.Warnings: GENERAL WARNINGS: Return or contact your physician immediately if your conditionworsens or changes unexpectedly, if not improving as expected, or if other problems arise.Prescription Medications:ketorolac 10 mg tablet Take 1 tablet every eight hours as needed for 5 days -- for ankle injury. [id number] tablet. Refills: 0. Substitution permitted.Pharmacy - [id number] - [address] [facility] ; [place], [place] [id number]. .Follow-up:Follow up with an orthopedic surgeon if not better. Call for an appointment. Reason for referral: evaluation,treatment and L ankle sprain.Understanding of the discharge instructions verbalized by patient. ADDITIONAL INFORMATIONAnkle Sprain (Adult) 2 General Instructions [facility] Emergency Department [address] [place] [address] Phone #: ext- [phone] 08/19/2020 09:20 Patient: DRAGAN LOERA Sex: F : 1995 Age: 25yAn ankle sprain is a stretching or tearing of the ligaments that hold the ankle joint together. There areno broken bones.An ankle sprain is a common injury for both children and adults. It happens when the ankle turns,twists, or rolls in an awkward way. This can be caused by a sports injury. Or it can happen from doin gsomething as simple as stepping on an uneven surface.Ligaments are made of tough connective tissue. Normally, ligaments stretch a certain amount andthen go back to their normal place. A sprain happens when a ligament is forced to stretch more thanthe normal amount. A severe sprain can actually tear the ligaments. If you have a severe sprain, youmay have felt or heard something like a pop when you were injured.Ankle sprains are given a grade depending on whether they are mild, moderate, or severe: Grade 1 sprain. A mild sprain with minor stretching and damage to the ligament. Grade 2 sprain. A moderate sprain where the ligament is partly torn. Grade 3 sprain. The most severe kind of sprain. The ligament is completely torn.Most sprains take about 4 to 6 weeks to heal. A severe sprain can take several months to recover.Your healthcare provider may order X-rays to be sure you don't have a fracture, or broken bone.The injured area will feel sore. Swelling and pain may make it hard to walk. You may need crutches ifwalking is painful. Or your provider may have you use a cast boot or air splint. This will depend on thegrade of ankle sprain that you have.Home care For a Grade 1 sprain, use RICE (rest, ice, compression, and elevation): 3 General Instructions [facility] Emergency Department [address] [place] [address] Phone #: ext- [phone] 08/19/2020 09:20 Patient: DRAGAN LOERA Sex: F : 1995 Age: 25y Rest your ankle. Don't walk on it. Ice should be used right away to help control swelling. Place an ice pack over the injured area for 20 minutes. Do this every 3 to 6 hours for the first 24 to 48 hours. Keep using ice packs to ease pain and swelling as needed. To make an ice pack, put ice cubes in a plastic bag that seals at the top. Wrap the bag in a clean, thin towel or cloth. Never put ice or an ice pack directly on the skin. The ice pack can be put right on the cast, bandage, or splint. As the ice melts, be careful that the cast, bandage, or splint doesn't get wet. If you have a boot, open it to apply an ice pack, unless told otherwise by your provider. Compression devices help to control swelling. They also keep the ankle from moving and support your injured ankle. These devices include dressings, bandages, and wraps. Elevate or raise your ankle above the level of your heart when sitting or lying down. This is very important for the first 48 hours. Follow the RICE guidelines for a Grade 2 sprain. This type of sprain will take longer to heal. Your provider may have you wear a splint, cast, or brace to keep your ankle from moving. If you have a Grade 3 sprain, you are at risk for long-term ankle instability. In rare cases, surgery may be needed. Your provider may have you wear a short leg cast or a walking boot for 2 to 3 weeks. After 48 hours, it may be helpful to apply heat for 20 minutes several times a day. You can do this with a heating pad or warm compress. Or you may want to go back and forth between using ice and heat. Never apply heat directly to the skin. Always wrap the heating pad or warm compress in a clean, thin towel or cloth. You may use tlft-yrp-iztdgos pain medicine (NSAIDS or nonsteroidal anti-inflammatory drugs) to control pain, unless anot her pain medicine was prescribed. Talk with your provider before using these medicines if you have chronic liver or kidney disease, or have ever had a stomach ulcer or gastrointestinal bleeding. Follow any rehabilitation exercises your provider gives you. These can help you be more flexible and improve your balance and coordination. This is helpful in preventing long-term ankle problems.PreventionTo help prevent ankle sprains, it's important to have good strength, balance, and flexibility. Be sureto: Always warm up before you exercise or do something very active Be careful when walking or running on uneven or cracked surfaces 4 General Instructions [facility] Emergency Department [address] [place] [address] Phone #: ext- [phone] 08/19/2020 09:20 Patient: DRAGAN LOERA Sex: F : 1995 Age: 25y Wear shoes that are in good condition and fit well Listen to your body's signals to slow down when you are in pain or tiredFollow-up careAny X-rays you had today don't show any broken bones, breaks, or fractures. Sometimes fracturesdon't show up on the first X-ray. Bruises and sprains can sometimes hurt as much as a fracture.These injuries can take time to heal completely. If your symptoms don't get better or they get worse,talk with your healthcare provider. You may need a repeat X-ray.Follow up with your healthcare provider, or as advised. Check for any warning signs listed below.When to seek medical adviceCall your healthcare provider right away if any of these occur: Fever of 100.4 F (38 C) or higher, or as directed by your healthcare provider Chills The injury doesn't seem to be healing The swelling comes back The cast or splint has a bad smell The plaster cast or splint gets wet or soft The fiberglass cast or splint gets wet and does not dry for 24 hours The pain or swelling increases, or redness appears Your toes become cold, blue, numb, or tingly The skin is discolored (looks blue, purple, or hernandez), has blisters, or is irritated You re-injure your ankle [id number] [employer]. [address] [place] [address]. All rights reserved. This information is not intended as asubstitute for professional medical care. Always follow your healthcare professional's instructions.Crutch WalkingCrutch adjustment 5 General Instructions [facility] Emergency Department [address] [place] [address] Phone #: ext- [phone] 08/19/2020 09:20 Patient: DRAGAN LOERA Sex: F : 1995 Age: 25y Make sure the crutches you use are adjusted to fit you. When you stand,there should be room to fit 2 to 3 fingers between the top of the crutch and your armpit. Your elbowshould be slightly bent when holding the hand oncology consultant. When your arms hang down, the crutch handleshould be at the top of your hip.Crutch walkingPlace the crutches forward about 1 foot in front of you. The crutches should be a little farther apartthan your body. Lean your weight forward as you push down on the hand oncology consultant. Make sure yourweight is on your hands and your strong leg, not your armpits. Let your body swing forward, landingon the strong leg. Move the crutches forward again. The crutch and your injured leg should movetogether.Going up steps with no handrails(Up with the good leg) With both crutches (under each armpit) on the same step as your feet, push down on the hand oncology consultant. 6 General Instructions [facility] Emergency Department [address] [place] [address] Phone #: ext- [phone] 08/19/2020 09:20 Patient: DRAGAN LOERA Sex: F : 1995 Age: 25y Balancing with very light pressure on the weak leg, let your hands support your weight. Raise your strong leg onto the next higher step. Transfer all your weight to your strong leg (still bent). Move the crutches up to the next step, next to your strong leg. Keep your weight evenly balanced on the two crutches and your strong leg. Straighten your strong knee as you raise your weak leg up to the next step.Going down steps with no handrails(Down with the bad leg) With both crutches (under each armpit) on the same step as your feet, push down on the hand oncology consultant. Keep your weight evenly balanced on the two crutches and your strong leg. Bend your strong knee as you lower your weak leg down to the next step. Let your strong leg support you (still bent) as you move the crutches down next to the weak leg. Transfer your weight to your hands. Balance with very light pressure on your weak leg as you lower your strong leg next to your weak legGoing up steps with handrails(Up with the good leg) Face the stairs, holding the handrail with one hand. Place both crutches under your armpit on the opposite side. Push down on the hand oncology consultant. Balancing with very light pressure on the weak leg, let your hands support your weight. Raise your strong leg onto the next higher step. Transfer all your weight to your strong leg (still bent) as you move the crutches up (while holding on to the handrail) to the next step next to the strong leg. Keep your weight evenly balanced on the handrail, the crutches (still under the same armpit opposite the handrail), and your strong leg. Straighten your strong knee as you raise the weak leg up to the next step.Going down steps with handrails(Down with the bad leg) Face the stairs, holding the handrail with one hand. Place both crutches under your armpit on 7 General Instructions [facility] Emergency Department [address] [place] [address] Phone #: ext- [phone] 08/19/2020 09:20 Patient: DRAGAN LOERA Sex: F : 1995 Age: 25y the opposite side. Push down on the hand oncology consultant. Balance your weight evenly on the crutches, handrail, and your strong leg. Then bend your strong knee as you lower the weak leg down to the next step. Let the handrail and your strong leg support you (still bent) as you move the crutches down alongside the weak leg. While holding on to the handrail and crutches (under the same armpit on the other side), transfer your weight to your hands, balancing with very light pressure on the weak leg as you lower your strong leg alongside your weak legTip: If you are worried about falling or you feel unsteady, try sitting when going up or down stairsinstead. Sit on the bottom step and keep your injured leg out in front of you. Hold your crutches flatagainst the stairs. Then slide up to the next step on your bottom. Use your free hand and good leg forsupport. Face the same way when going down stairs. [id number] [employer]. [address] [place] [address], [place] [address]. All rights reserved. This information is not intended as asubstitute for professional medical care. Always follow your healthcare professional's instructions.JORGE WrapMinor muscle or joint injuries are often treated with an elastic bandage. The bandage providessupport and compression to the injured area. An elastic bandage is a stretchy, rolled bandage. Elasticban dages range in width from 2 to 6 inches. They can be used for a variety of injuries. The bandagesare often called JORGE bandages, after the most common brand name.If used correctly, elastic bandages help control swelling and ease pain. An elastic bandage is also agood reminder not to overuse the injured area. However, elastic bandages do not provide a lot ofsupport and will not prevent reinjury.Home care 8 General Instructions [facility] Emergency Department [address] [place] [address] Phone #: ext- [phone] 08/19/2020 09:20 Patient: DRAGAN LOERA Sex: F : 1995 Age: 25y To apply an elastic bandage: Check the skin before wrapping the injury. It should be clean, dry, and free of drainage. Start wrapping below the injury and work your way toward the body. For an ankle sprain, start wrapping around the foot and work up toward the calf. This will help control swelling. Overlap the edges of the bandage so it stays snuggly in place. Wrap the bandage firmly, but not too tightly. A tight bandage can increase swelling on either end of the bandage. Make sure the bandage is wrinkle free. Leave fingers and toes exposed. Secure ends of the bandage (even self-sticking ones) with clips or tape. Check often to be sure there is good circulation, especially in the fingers and toes. Loosen the bandage if there is local swelling, numbness, tingling, discomfort, coldness, or discoloration (skin pale or bluish in color). Rewrap the bandage as needed during the day. Reroll the bandage as you unwind it.Continue using the elastic bandage until the pain and swelling are gone or as your hea lthcareprovider advises.If you have been told to ice the area, the ice can be secured in place with the elastic bandage. Wrapthe ice pack with a thin towel to protect the skin. Don't put ice or an ice pack directly on the skin. Icethe area for no more than 20 minutes at a time.Follow-up careFollow up with your healthcare provider, or as advised. 9 General Instructions [facility] Emergency Department [address] [place] [address] Phone #: ext- [phone] 08/19/2020 09:20 Patient: DRAGAN LOERA Sex: F : 1995 Age: 25yWhen to seek medical adviceCall your healthcare provider for any of the following: Pain and swelling that doesn't get better or gets worse Trouble moving injured area Skin discoloration, numbness, or tingling that doesn't go away after bandage is removed [id number] [employer]. [address] [place] [address]. All rights reserved. This information is not intended as asubstitute for professional medical care. Always follow your healthcare professional's instructions. You have been given the following additional information: Ankle Sprain (Adult) Crutch Walking JORGE Wrap You may walk and bear weight as tolerated. Do not work for seven days.(Electronically signed by Madhav Edmonds, Physician 08/19/2020 12:42) Name Value Range Interpretation Code Description Data Ana Luisa rce(s) Supporting Document(s) ID Date Data Source [id number] 08/19/2020 09:24:00 AM EDT [facility] 1 Clinical Report - Nurses [facility] Emergency Department [address] [place] [address] Phone #: osg- [phone] 08/19/2020 09:20 Patient: DRAGAN LOERA Sex: F : 1995 Age: 25yTRIAGEArrived by private vehicle. Historian: patient. Accompanied by family.Triage time: 09:21 08/19/2020. Acuity: LEVEL 4.Chief Complaint: INJURY TO LEFT ANKLE and LEFT FOOT.Alert. No acute distress.Occurred 09:06 08/19/2020. ( Pt was headed to the truck to put packages in the truck and roller her ankle.Pt states she heard some crunching sounds.). She has had numbness, tingling, and trouble walking.Treatment SIGN POSTER:None. --09:30 08/19/20 Evonne Flores R.N.09:21 08/19/20. BP: 145/98. MAP: 113. HR: 102. RR: 18. O2 saturation: 99% on room air. Temp: 98 F(oral). Pain level now: 08/04. --09:30 08/19/20 Evonne Flores R.N.Weight: 74.8 kg stated. Height/Length: 69 inches Per Patient. BMI: 24.4. --09:08/19/20 Evonne Flores R.N.MedicationsDepo-Provera Intramuscular. --09:08/19/20 Evonne Flores R.N.AllergiesNo Known Drug Allergy. --09:08/19/20 Evonne Flores R.N.PROBLEMS:Fracture in Back. --09:23 08/19/20 Evonne Flores R.N.Medication/allergy information source: the patient. --09:30 08/19/20 Evonne Flores R.N.ADDITIONAL SURGERIES:no known surgeries.HistoryPAST MEDICAL HX: Tetanus status: up-to-date. Last normal menstrual period- has been bleeding for 2months.SOCIAL HX: Current every day light tobacco smoker- less than 1/2 a pack per day. Occasional alcoholuse. No drug use. She was offered HIV testing but declined. Patient education was provided. She wasoffered hepatitis C testing but declined. Patient education was provided. She has not traveled outside the.[place].Infectious disease exposure: No infectious disease exposure. (COVID screen negative). Patient is not a 2 Clinical Report - Nurses [facility] Emergency Department [address] [place] [address] Phone #: ext- [phone] 08/19/2020 09:20 ----- Patient: DRAGAN LOERA Sex: F : 1995 Age: 25y known carrier of tuberculosis, hepatitis, HIV, MRSA or VRE. Patient is not a known carrier of CRE. SELF HARM ASSESSMENT: Self harm assessment was performed. The patient answered "no" to the question(s) "Do you have thoughts of harming or killing yourself?", "Do you have a plan for harming or killing yourself?" and "Have you recently had thoughts about harming or killing others?". ABUSE ASSESSMENT: Abuse assessment. The patient had positive responses to the question(s) "Do you feel safe in your home?" (yes). Abuse denied. No suspicion of abuse. No report of abuse. NUTRITIONAL RISK ASSESSMENT: The nutritional risk assessment revealed no deficiencies. FUNCTIONAL ASSESSMENT: Functional assessment: no impairments noted. LEARNING NEEDS ASSESSMENT: The learning needs assessment revealed no barriers. FALL RISK ASSESSMENT: Fall risk assessment completed. No risk factors identified. SKIN INTEGRITY ASSESSMENT: Skin integrity risk assessment completed. No skin integrity risk identified. --08/19/20 Evonne Flores R.N. Interventions Identification band on patient. --08/19/20 Evonne Flores R.N.PHYSICAL ASSESSMENTTo room via wheelchair.GENERAL / NEURO / PSYCH: Oriented X 4. Alert. Appears in no acute distress. Appears in pain.She has weakness. She has numbness.EXTREMITIES: Limited ROM present. Extremity pulses are within normal limits. Pain with weightbearing. She was unable to bear weight. Neuro-vascular status intact to the extremity. Left ankle:tenderness, swelling and ecchymosis. Left foot: tenderness and swelling.SKIN: Skin intact. Skin is warm and dry. --09:34 08/19/20 Evonne Flores R.N.NURSING PROGRESS NOTESReassurance given. Three patient identifiers checked. Call light placed in reach. Side rails up x 2. Bedplaced in lowest position. Brakes of bed on. Patient ready for evaluation- ED physician notified. --09: Evonne Flores R.N. 09:35 08/19/2020 Toradol (Ketorolac Tromethamine) IM 60 mg given. Given in the right anterior lateral thigh. Allergies verified and confirmed 5 rights. Information reviewed with patient including reason for taking this medication, signs of allergic reaction and precautions. Verbalizes understanding. --09:38 08/19/20 Donna Hernandez R.N. Patient transported to radiology by wheelchair with [employer]. --09:54 08/19/20 [facility] TechJeff ER Tech1 3 Clinical Report - Nurses [facility] Emergency Department [address] [place] [address] Phone #: ext- [phone] 08/19/2020 09:20 Patient: DRAGAN LOERA Sex: F : 1995 Age: 25y Patient returned from radiology by wheelchair with operations technician. --10:00 08/19/20 [facility] Jeff Chu ER Tech1 10:20 08/19/20. 3 inch jorge bandage applied to left ankle and left foot by nurse. Short leg medium velcro splint applied to left ankle. Distal pulses intact, sensation intact and motor within normal limits. Patient tolerated the procedure well. Splinting applied by me. Patient fit with new crutches. Crutch training performed by nurse; the patient demonstrated proper use. --10:32 08/19/20 Tori Gibbs RN.DISPOSITION / DISCHARGE 10:38 08/19/20. BP: unable to obtain due to patient not present. HR: unable to obtain due to patient not present. RR: unable to obtain due to patient not present. O2 saturation: unable to obtain due to patient not present. Temp: unable to obtain due to patient not present. Pain level now unable to obtain due to patient not present. --10:44 08/19/20 Tori Gibbs RN 10:38 08/19/20. ( Went in room to discharge patient obtain vital signs, patient corner block cutter left.). --10:45 08/19/20 Tori Gibbs RN 10:45 08/19/20. Condition at departure: stable. No learning barriers present. Discharge instructions provided and reviewed with corner block cutter (instructed patient via phone). Written instructions provided in Dominican. The patient was discharged home and accompanied by corner block cutter. She left ambulatory on crutches and via private vehicle. [employer] Coordinator driving. ( Patient's cell phone called, states she is in parking lot, sending significant other in to collect discharge instructions). --10:47 08/19/20 Tori Gibbs RN.Locked/Released at 08/19/2020 10:47 by Tori Gibbs RN Name Value Range Interpretation Code Description Data Ana Luisa rce(s) Supporting Document(s) ID Date Data Source [id number] 08/19/2020 09:24:00 AM EDT [facility] 1 Clinical Report - Physicians/Mid Levels [facility] Emergency Department [address] [place] [address] Phone #: ext- [phone] 08/19/2020 09:20 Patient: DRAGAN LOERA Sex: F : 1995 Age: 25y Time Seen: 09:25 08/19/2020. Arrived- By private vehicle. Historian- patient and spouse. Disposition decision: 10:18 08/19/2020.HISTORY OF PRESENT ILLNESS Chief Complaint: Injury to the left ankle. The injury happened just prior to arrival today. Occurred at home. ( Turned L ankle getting out of a truck). The patient sustained a twisting injury. Patient is experiencing severe pain. No injury to the head or neck or other injury.REVIEW OF SYSTEMSThe patient complains of pain on weight bearing. She has had swelling. No tingling, weakness,numbness, suspected foreign body or skin laceration.PAST HISTORYPast history not negative. See nurses notes. Back fracture. Tetanus immunization status is up-to-date.SOCIAL HISTORYLight tobacco smoker (cigarette)- less than 1/2 a pack per day. Occasional alcohol use. No drug use.No recent travel.ADDITIONAL NOTESThe nursing notes have been reviewed with agreement regarding the chief complaint, HPI, ROS, PMH andpatient medications and allergies.PHYSICAL EXAMAppearance: Alert. Oriented X3. Anxious. Appears to be in pain. In distress. Patient in moderatedistress. No backboard or C-collar.Head: Head atraumatic.Skin: Skin intact. Skin warm and dry.Extremities: Moderate soft- tissue tenderness in the left lateral and anterior ankle. Ankle injury present.Left lateral ankle: moderate tenderness, mild swelling and medium sized ecchymosis of the lateralmalleolus. Limited ROM secondary to pain and swelling (diminished plantar flexion, dorsiflexion, inversionand eversion). Neurovascular intact distally. No ligamentous laxity present. No joint effusion. No erythema,laceration, abrasion, puncture wound or foreign body. No deformity or open wound communicating withjoint space. No foot injury. Foot and ankle exam otherwise negative. Extremities otherwise negative.Gait: Abnormal gait. Gait not tested due to pain. She was unable to bear weight.Neuro, Vascular and Tendons: Vascular status intact. Sensation intact. Motor intact. Tendon functionintact.Neuro: Oriented X 3. No motor deficit. No sensory deficit. 2 Clinical Report - Physicians/Mid Levels [facility] Emergency Department [address] [place] [address] Phone #: ext- [phone] 08/19/2020 09:20 Patient: DRAGAN LOERA [facility]#: [id number] Sex: F : 1995 Age: 25yLABS, X-RAYS, AND EKGX-Rays: Left ankle negative.Note - Tests : (L ankle - No fracture).PROGRESS AND PROCEDURESCourse of Care: 10:Aug 19 2020. Patient is stable. 10:Aug 19 2020. Badly sprained L ankle. No fracture on X-ray. Will discharge home with Jorge wrap and crutches. Disposition: Discharged home in good and improved condition (Aug 19 2020). Condition: good.CLINICAL IMPRESSION Sprain of the anterior talo-fibular and deltoid ligament of the left ankle.INSTRUCTIONS Apply ice. Use crutches. Wear elastic wrap (Jorge wrap) as directed. Elevate affected areas above chest level. You may walk and bear weight as tolerated. Do not work for seven days. Warnings: GENERAL WARNINGS: Return or contact your physician immediately if your condition worsens or changes unexpectedly, if not improving as expected, or if other problems arise. Prescription Medications: ketorolac 10 mg tablet Take 1 tablet every eight hours as needed for 5 days -- for ankle injury. Dispense 15 tablet. Refills: 0. Substitution permitted. Pharmacy - [id number] - [address] [place], [place] [id number]. . Follow-up: Follow up with an orthopedic surgeon if not better. Call for an appointment. Reason for referral: evaluation, treatment and L ankle sprain. Understanding of the discharge instructions verbalized by patient.(Electronically signed by Madhav Edmonds Physician 08/19/2020 12:42) 3Clinical Report - Physicians/Mid Levels [facility] Emergency Department [address] [place], [place] [address] Phone #: ext- [phone] 08/19/2020 09:20 Patient: DRAGAN LOERA Sex: F : 1995 Age: 25y Name Value Range Interpretation Code Description Data Ana Luisa rce(s) Supporting Document(s) ID Date Data Source [id number] 07/06/2020 02:44:00 [place] [address] PHONE: [phone] FAX: [phone] Name .................. : EVARISTO Badillo Acct Number.................. : [id number] ROOM. ................. : MR Number ................... : [id number] Stay type ............. : O/P Discharge Date......... ... : 07/06/20 Admit Date ......... : 07/06/20 Admit Phys .................... : KANWAL Date of ....... : 1995 Family Phys ................... : HARD Phone .................. : [phone] Age ................................ : 25 Film# .................. .:[id number] Sex ................................. : F Unsigned transcriptions are preliminary reports and do not represent a medical or legal document SPINE LS COMPLETE [id number] COMPLETE:07/06/20 11:16 [facility] [place] [id number] (SP[place] PROC REASON: sprain of ligaments of ls spine LUMBAR SPINE, 07/06/20: INDICATION: Sprain. FINDINGS: Bilateral spondylolysis is identified at L5 with grade I anterolisthesis of L5/S1. This is not significantly changed as compared to a previous study from 06/10/2007. Facet joint hypertrophy is identified at the lower lumbar spine. Disc space narrowing is present at L5-S1. Bowel gas pattern is nonspecific. Soft tissues appear unremarkable. IMPRESSION: Grade I anterolisthesis of L5/S1 secondary to spondylolysis bilaterally at L5. This has not significantly changed. Examination dictated by JARVIS Hennessy. Examination was reviewed with Adam Albrecht MD, radiologist at the time of this dictation. Electronically Reviewed and Signed By Adam Albrecht MD , 07/06/20 14:44, TDS Transcribe Initials: SSR, Transcribe Date: 07/06/20 13:04, Dictation Date: Copy for: 710 MED REC Page 1 of 1 Name Value Range Interpretation Code Description Data Ana Luisa rce(s) Supporting Document(s) ID Date Data Source [id number] 07/05/2020 02:11:00 PM EDT [facility] ([facility]) Name Value Range Interpretation Code Description Data Ana Luisa rce(s) Supporting Document(s) Spine LS Complete Laboratory test result [facility] ([facility]) ID Date Data Source [id number] 05/29/2020 02:10:00 PM EDT [facility] ([facility]) Name Value Range Interpretation Code Description Data Ana Luisa rce(s) Supporting Document(s) Culture Urine Laboratory test result [facility] ([facility]) {SPECIMEN TYPE: RANDOM ID Date Data Source [id number] 06/02/2020 11:33:00 AM EDT [facility] Name Value Range Interpretation Code Description Data Ana Luisa rce(s) Supporting Document(s) CULTURE URINE [facility] _CULTURE URINE_$$[id number]$$[id number]$$459111$$220747$$425602$$530085$$130689$$889146$$011855$$ 388711$$556660$$522490$$460442$$546368$$818928$$966409$$979488$$640876$$524841$$ 683369$$347123$$957444$$671001$$065125$$624975$$733366$$680359 -- Continued on next page --Patient: EVARISTO Badillo Order: [id number] Page 2Culture: CULTURE URINE Status: Final ==== -- Continued on next page --Patient: EVARISTO Badillo Order: [id number] Page 2Culture: CULTURE URINE Status: Prelim ===== -- Continued on next page --Patient: EVARISTO Badillo Order: [id number] Page 2Culture: CULTURE URINE Status: Prelim =====$$[id number]$$[id number] DATE/TIME: 06/02/2020 10:06Culture: CULTURE URINE Status: FinalUrine Culture,Comprehensive: P1No growth in 36 - 48 hours. Previous result entered on 06/01/2020 14:02 ET No growth after 18-24 hours. Previous result entered on 06/01/2020 05:39 ET Specimen has been received and testing has been initiated.P1 [facility] CLIA #: [id number] [address] [id number] [facility] [id number] Director : Roque Mayberry MD NPI #:Certified Physician Assistant : 06/01/20.0909.XMT.SENT REF 06/02/20.0626.XMT.SENT REF 06/02/20.1133.XMT.SENT REF ID Date Data Source [id number] 05/29/2020 02:06:00 PM EDT [facility] ([facility]) Name Value Range Interpretation Code Description Data Ana Luisa rce(s) Supporting Document(s) Source: Laboratory test result [facility] ([facility]) {SOURCE: Genital Chlamydia trachomatis,Kayla Laboratory test result [facility] ([facility]) {SOURCE: Genital Neisseria gonorrhoeae,Kayla Laboratory test result [facility] ([facility]) {SOURCE: Genital ID Date Data Source [id number] 06/03/2020 06:28:00 AM EDT [facility] Name Value Range Interpretation Code Description Data Ana Luisa rce(s) Supporting Document(s) SOURCE: Genital [facility] Chlamydia trachomatis rRNA [Presence] in Unspecified specimen by Probe and target amplification method Negative Negative [facility] Neisseria gonorrhoeae rRNA [Presence] in Unspecified specimen by Probe and target amplification method Negative Negative [facility] ID Date Data Source [id number] 05/29/2020 02:06:00 PM EDT [facility] ([facility]) Name Value Range Interpretation Code Description Data Ana Luisa rce(s) Supporting Document(s) Cytology report of Cervical or vaginal smear or scrapi ng Cyto stain.thin prep Laboratory test result [facility] ([facility]) ID Date Data Source [id number] 05/29/2020 01:45:00 PM EDT [facility] ([facility]) Name Value Range Interpretation Code Description Data Ana Luisa rce(s) Supporting Document(s) Inhouse Urine Test Laboratory test result [facility] ([facility]) ID Date Data Source GATS (NEGATIVE STREP SCREEN) 05/14/2020 10:22:04 AM EDT [facility] ([facility]) Name Value Range Interpretation Code Description Data Ana Luisa rce(s) Supporting Document(s) FULL REPORT IN LAB NOTES ([facility] and [facility]). GATS CULTURE (NEG STREP SCR) [facility] ([facility]) ID Date Data Source Rapid Strep (Theodora Strep A+ PRACHI) 05/11/2020 03:03:23 AM EDT [facility] ([facility]) Name Value Range Interpretation Code Description Data Ana Luisa rce(s) Supporting Document(s) negative Result (Positive/Negative) [facility] 1 ([facility]) Rapid Strep (Theodora Strep A+ FI A) [facility] ([facility]) yes Internal Controls Perform ed (Y/N) [facility] ([facility]) ID Date Data Source [id number] 04/24/2020 11:25:00 AM EDT [facility] ([facility]) Name Value Range Interpretation Code Description Data Ana Luisa rce(s) Supporting Document(s) Laboratory test finding (navigational concept) Laboratory test result [facility] ([facility]) ID Date Data Source [id number] 04/24/2020 10:32:00 AM EDT [facility] ([facility]) Name Value Range Interpretation Code Description Data Ana Luisa rce(s) Supporting Document(s) Urinalysis Laboratory test result [facility] ([facility]) Is patient fasting? N {SOURCE: Random Void~NURSE COLLECTED? N Source Laboratory test result [facility] ([facility]) Is patient fasting? N {SOURCE: Random Void~NURSE COLLECTED? N Clarity Laboratory test result [facility] ([facility]) Is patient fasting? N {SOURCE: Random Void~NURSE COLLECTED? N Spec [place] 1.020 1.001-1.030 [facility] ([facility]) Is patient fasting? N {SOURCE: Random Void~NURSE COLLECTED? N Color Laboratory test result [facility] ([facility]) Is patient fasting? N {SOURCE: Random Void~NURSE COLLECTED? N Ketone Laboratory test result [facility] ([facility]) Is patient fasting? N {SOURCE: Random Void~NURSE COLLECTED? N Glucose Laboratory test result [facility] ([facility]) Is patient fasting? N {SOURCE: Random Void~NURSE COLLECTED? N Bilirubin Laboratory test result [facility] ([facility]) Is patient fasting? N {SOURCE: Random Void~NURSE COLLECTED? N pH 6 5-9 [facility] ([facility]) Is patient fasting? N {SOURCE: Random Void~NURSE COLLECTED? N Blood 25 Abnormal (applies to non-numeric res ults) [facility] ([facility]) Is patient fasting? N {SOURCE: Random Void~NURSE COLLECTED? N Nitrite Laboratory test result [facility] ([facility]) Is patient fasting? N {SOURCE: Random Void~NURSE COLLECTED? N Protein Laboratory test result [facility] ([facility]) Is patient fasting? N {SOURCE: Random Void~NURSE COLLECTED? N Leuk Est Laboratory test result [facility] ([facility]) Is patient fasting? N {SOURCE: Random Void~NURSE COLLECTED? N Urobilinogen Laboratory test result [facility] ([facility]) Is patient fasting? N {SOURCE: Random Void~NURSE COLLECTED? N Microscopic Laboratory test result M [facility] ([facility]) Is patient fasting? N {SOURCE: Random Void~NURSE COLLECTED? N Epithelial Laboratory test result [facility] ([facility]) Is patient fasting? N {SOURCE: Random Void~NURSE COLLECTED? N WBC Laboratory test result [facility] ([facility]) Is patient fasting? N {SOURCE: Random Void~NURSE COLLECTED? N RBC Laboratory test result [facility] ([facility]) Is patient fasting? N {SOURCE: Random Void~NURSE COLLECTED? N Bacteria Laboratory test result [facility] ([facility]) Is patient fasting? N {SOURCE: Random Void~NURSE COLLECTED? N Mucous Laboratory test result [facility] ([facility]) Is patient fasting? N {SOURCE: Random Void~NURSE COLLECTED? N ID Date Data Source [id number] 04/24/2020 10:32:00 AM EDT [facility] ([facility]) Name Value Range Interpretation Code Description Data Ana Luisa rce(s) Supporting Document(s) Thyrotropin [Units/volume] in Serum or Plasma 1.88 uIU/mL 0.47-5.01 [facility] ([facility]) Is patient fasting? N {SOURCE: Random Void~NURSE COLLECTED? N Hemoglobin A1c/Hemoglobin.total in Blood 5.3 % 4.4-6.1 [facility] ([facility]) Is patient fasting? N {SOURCE: Random Void~NURSE COLLECTED? N ID Date Data Source [id number] 04/24/2020 10:32:00 AM EDT [facility] ([facility]) Name Value Range Interpretation Code Description Data Ana Luisa rce(s) Supporting Document(s) Sodium 139 meq/L 134-153 [facility] ([facility]) Is patient fasting? N {SOURCE: Random Void~NURSE COLLECTED? N Comprehensive Metabo Laboratory test result [facility] ([facility]) Is patient fasting? N {SOURCE: Random Void~NURSE COLLECTED? N Potassium 4.8 meq/L 3.6-5.0 [facility] ([facility]) Is patient fasting? N {SOURCE: Random Void~NURSE COLLECTED? N Co2 25 meq/L 22-30 [facility] ([facility]) Is patient fasting? N {SOURCE: Random Void~NURSE COLLECTED? N Chloride 107 meq/L 98-107 [facility] ([facility]) Is patient fasting? N {SOURCE: Random Void~NURSE COLLECTED? N Glucose 99 mg/dL 65-110 [facility] ([facility]) Is patient fasting? N {SOURCE: Random Void~NURSE COLLECTED? N BUN 14 mg/dL 7-21 [facility] ([facility]) Is patient fasting? N {SOURCE: Random Void~NURSE COLLECTED? N BUN/Creat 16 8-27 [facility] ([facility]) Is patient fasting? N {SOURCE: Random Void~NURSE COLLECTED? N Total Protein 6.9 g/dL 6.3-8.2 [facility] ([facility]) Is patient fasting? N {SOURCE: Random Void~NURSE COLLECTED? N Creatinine 0.9 mg/dL 0.7-1.5 [facility] ([facility]) Is patient fasting? N {SOURCE: Random Void~NURSE COLLECTED? N Globulin 2.3 GM/DL 2.4-3.2 Below low normal [facility] ( [facility]) Is patient fasting? N {SOURCE: Random Void~NURSE COLLECTED? N A/G Ratio 2.0 0.8-2.0 [facility] ([facility]) Is patient fasting? N {SOURCE: Random Void~NURSE COLLECTED? N Albumin 4.6 g/dL 3.9-5.0 [facility] ([facility]) Is patient fasting? N {SOURCE: Random Void~NURSE COLLECTED? N Alkaline Phos 50 U/L 38-126 [facility] ([facility]) Is patient fasting? N {SOURCE: Random Void~NURSE COLLECTED? N Calcium 9.6 mg/dL 8.4-10.2 [facility] ([facility]) Is patient fasting? N {SOURCE: Random Void~NURSE COLLECTED? N Total Bili Laboratory test result 0.2-1.3 [facility] ([facility]) Is patient fasting? N {SOURCE: Random Void~NURSE COLLECTED? N Anion Gap 7.0 mmol/L 8.0-16.0 Below low normal [facility] ( [facility]) Is patient fasting? N {SOURCE: Random Void~NURSE COLLECTED? N Sgot/Ast 20 U/L 5-40 [facility] ([facility]) Is patient fasting? N {SOURCE: Random Void~NURSE COLLECTED? N SGPT/Alt 21 U/L 7-56 [facility] ([facility]) Is patient fasting? N {SOURCE: Random Void~NURSE COLLECTED? N Afr Amer GFR Laboratory test result [facility] ([facility]) Is patient fasting? N {SOURCE: Random Void~NURSE COLLECTED? N Non-Aa GFR Laboratory test result [facility] ([facility]) Is patient fasting? N {SOURCE: Random Void~NURSE COLLECTED? N Age 25 yrs [facility] ([facility]) Is patient fasting? N {SOURCE: Random Void~NURSE COLLECTED? N ID Date Data Source [id number] 04/24/2020 10:32:00 AM EDT [facility] ([facility]) Name Value Range Interpretation Code Description Data Ana Luisa rce(s) Supporting Document(s) RBC 4.86 10^6/uL 4.20-5.40 [facility] ([facility]) Is patient fasting? N {SOURCE: Random Void~NURSE COLLECTED? N WBC 5.9 10^3/uL 4.2-11.0 [facility] ([facility]) Is patient fasting? N {SOURCE: Random Void~NURSE COLLECTED? N CBC No Diff Laboratory test result M [facility] ([facility]) Is patient fasting? N {SOURCE: Random Void~NURSE COLLECTED? N Hematocrit 42.6 % 37.0-47.0 [facility] ([facility]) Is patient fasting? N {SOURCE: Random Void~NURSE COLLECTED? N Hemoglobin 13.9 g/dL 12.0-16.0 [facility] ([facility]) Is patient fasting? N {SOURCE: Random Void~NURSE COLLECTED? N MCV 87.7 fL 81.0-101 [facility] ([facility]) Is patient fasting? N {SOURCE: Random Void~NURSE COLLECTED? N MCH 28.6 pg 27.0-34.0 [facility] ([facility]) Is patient fasting? N {SOURCE: Random Void~NURSE COLLECTED? N Platelets 231 10^3/uL 150-450 [facility] ([facility]) Is patient fasting? N {SOURCE: Random Void~NURSE COLLECTED? N RDW 13.8 % 11.5-14.5 [facility] ([facility]) Is patient fasting? N {SOURCE: Random Void~NURSE COLLECTED? N MCHC 32.6 g/dL 31.0-36.0 [facility] ([facility]) Is patient fasting? N {SOURCE: Random Void~NURSE COLLECTED? N MPV 9.9 fL 7.4-10.4 [facility] ([facility]) Is patient fasting? N {SOURCE: Random Void~NURSE COLLECTED? N ID Date Data Source [id number] 04/24/2020 08:23:00 PM EDT [facility] Name Value Range Interpretation Code Description Data Ana Luisa rce(s) Supporting Document(s) URINALYSIS [facility] URINALYSIS SOURCE Clean Catch [facility] COLOR yellow NORMAL: Yellow [facility] CLARITY clear NORMAL: Clear [facility] Specific gravity of Urine by Test strip 1.020 1.001 - 1.030 [facility] 6 5 - 9 [facility] Gl[facility] [Mass/volume] in Urine by Test strip NORM NORMAL: Negat [facility] Bilirubin.total [Presence] in Urine by Test strip NEG NORMAL: Negative [facility] Ketones [Presence] in Urine by Test strip NEG NORMAL: Negative [facility] Protein [Mass/volume] in Urine by Test strip NEG NORMAL: Negat [facility] Nitrite [Presence] in Urine by Test strip NEG NORMAL: Negative [facility] BLOOD 25 NORMAL: Negative A [facility] Leukocyte esterase [Presence] in Urine by Test strip NEG NATASHA L: Negative [facility] Urobilinogen [Mass/volume] in Urine by Test strip NOR less lacie n 1.0 mg/dL [facility] MICROSCOPIC See Below [facility] WBC 0 - 1 NORMAL: NONE SEEN [facility] Erythrocytes [#/volume] in Urine by Test strip 3 - 5 NORMAL: NON E SEEN [facility] EPITHELIAL FEW NORMAL: NONE SEEN [facility] Bacteria [Presence] in Urine sediment by Light microscopy Tr jorge NORMAL: NONE SEEN [facility] Mucus [Presence] in Urine sediment by Light microscopy 1+ NOR MAL: NONE SEEN [facility] ID Date Data Source [id number] 04/24/2020 05:04:00 PM EDT [facility] Name Value Range Interpretation Code Description Data Ana Luisa rce(s) Supporting Document(s) CBC NO DIFF [facility] COMPLETE BLOOD COUNT Leukocytes [#/volume] in Blood by Automated count 5.9 10^3/uL 4.2 - 1 1.0 [facility] Erythrocytes [#/volume] in Blood by Automated count 4.86 10^6/uL 4. 20 - 5.40 [facility] Hemoglobin [Mass/volume] in Blood 13.9 g/dL 12.0 - 16.0 [facility] Hematocrit [Volume Fraction] of Blood by Automated count 42.6 % 3 7.0 - 47.0 [facility] Erythrocyte mean corpuscular volume [Entitic volume] by Auto mated count 87.7 fL 81.0 - 101 [facility] Erythrocyte mean corpuscular hemoglobin [Entitic mass] by Automated count 28.6 pg 27.0 - 34.0 [facility] Erythrocyte mean corpuscular hemoglobin concentration [Mass/volume] by Automated count 32.6 g/dL 31.0 - 36.0 [facility] Erythrocyte distribution width [Ratio] by Automated count 13.8 % 11.5 - 14.5 [facility] Platelets [#/volume] in Blood by Automated count 231 10^3/uL 150 - 45 0 [facility] Platelet mean volume [Entitic volume] in Blood by Automated count 9.9 fL 7.4 - 10.4 [facility] ID Date Data Source [id number] 04/24/2020 04:33:00 PM EDT [facility] Name Value Range Interpretation Code Description Data Ana Luisa rce(s) Supporting Document(s) COMPREHENSIVE METABOLIC PANEL [facility] COMPREHENSIVE METABOLIC PANEL Sodium [Moles/volume] in Serum or Plasma 139 mEq/L 134 - 153 [facility] Potassium [Moles/volume] in Serum or Plasma 4.8 mEq/L 3.6 - 5.0 [facility] Chloride [Moles/volume] in Serum or Plasma 107 mEq/L 98 - 107 [facility] Carbon dioxide, total [Moles/volume] in Serum or Plasma 25 MEQ/L 22 - 30 [facility] Glucose [Mass/volume] in Serum or Plasma 99 MG/DL 65 - 110 [facility] BUN 14 MG/DL 7 - 21 [facility] Creatinine [Mass/volume] in Serum or Plasma 0.9 MG/DL 0.7 - 1.5 [facility] BUN/CREAT 16 8 - 27 [facility] Protein [Mass/volume] in Serum or Plasma 6.9 G/DL 6.3 - 8.2 [facility] Albumin [Mass/volume] in Serum or Plasma 4.6 G/DL 3.9 - 5.0 [facility] Globulin [Mass/volume] in Serum by calculation 2.3 GM/DL 2.4 - 3.2 L [facility] A/G RATIO 2.0 0.8 - 2.0 [facility] Calcium [Mass/volume] in Serum or Plasma 9.6 MG/DL 8.4 - 10.2 [facility] Bilirubin.total [Mass/volume] in Serum or Plasma <0.7 MG/DL 0.2 - 1.3 [facility] Alkaline phosphatase [Enzymatic activity/volume] in Serum or Plasma 50 U/L 38 - 126 [facility] Aspartate aminotransferase [Enzymatic activity/volume] in Serum or Plasma 20 U/L 5 - 40 [facility] Alanine aminotransferase [Enzymatic activity/volume] in Seru m or Plasma 21 U/L 7 - 56 [facility] Anion gap 3 in Serum or Plasma 7.0 mmol/L 8.0 - 16.0 L [facility]GE 25 [facility] G[facility] >60 mL/min [facility] AFR AMER GFR >60 mL/min [facility] Male GFR In terprentation 20-49 yrs >60 mL/min Normal 50-59 yrs >56 mL/min Normal 60-69 yrs >49 mL/min Normal 70-79yrs >42 mL/min Normal 80 and above >35 mL/min Normal Female GFR Interpretation 20-39 yrs >60 mL/min Normal 40-49 yrs >58 mL/min Normal 50-59 yrs >51 mL/min Normal 60-69 yrs >45 mL/min Normal 70-79 yrs >39 mL/min Normal 80 and above >32 mL/min Normal ID Date Data Source [id number] 04/24/2020 04:33:00 PM EDT [facility] Name Value Range Interpretation Code Description Data Ana Luisa rce(s) Supporting Document(s) Hemoglobin A1c/Hemoglobin.total in Blood 5.3 % 4.4 - 6.1 [facility] {A1]{HB] ID Date Data Source [id number] 04/24/2020 04:22:00 PM EDT [facility] Name Value Range Interpretation Code Description Data Ana Luisa rce(s) Supporting Document(s) Thyrotropin [Units/volume] in Serum or Plasma by Detec tion limit <= 0.05 mIU/L 1.88 uIU/mL 0.47 - 5.01 [facility] ID Date Data Source [id number] 01/22/2020 08:08:00 PM EDT [facility] @01/22/20 2008: UA W/ MICRO added. RFLXG = UMIC.Method of Collection:: Clean Catch Greater than 100,000 CFU/MLVIRIDANS Stre p spp.NO SENSITIVIITES DONE25,000 CFU/ML Staph spp. coag negProbable contaminants no senst done @01/22/20 2008: UA W/ MICRO added. RFLXG = UMIC.Method of Collection:: Clean Catch Name Value Range Interpretation Code Description Data Ana Luisa rce(s) Supporting Document(s) Color of Urine [facility] Appearance of Urine CLEAR Abnormal (applies to non-nu meric results) [facility] pH of Urine by Test strip 8.5 5-8 [facility] Specific gravity of Urine by Refractometry 1.004 1.005 -1.030 Abnormal (applies to non-numeric results) [facility] Leukocyte esterase [Presence] in Urine by Test strip NEGATIVE Above high normal [facility] @DO MICRO!!!! Nitrite [Presence] in Urine by Test strip NEGATIVE [facility] Protein [Presence] in Urine by Test strip NEGATIVE Above high normal [facility] @DO MICRO!!!! Glucose [Mass/volume] in Urine by Automated test strip NEGATIVE NEG ATIVE [facility] Ketones [Presence] in Urine by Test strip NEGATIVE [facility] Urobilinogen [Presence] in Urine 0.2-1 EU/dl [facility] Bilirubin.total [Presence] in Urine by Automated test strip NEGATIVE [facility] Erythrocytes [#/volume] in Urine by Test strip LARGE NEGATIV E Above high normal [facility] @DO MICRO!!!! URINE MICROSCOPIC ADDED Microscopic Added [facility] ID Date Data Source [id number] 01/25/2020 07:13:00 AM EDT [facility] @01/22/20 2008: UA W/ MICRO added. RFLXG = UMIC.Method of Collection:: Clean Catch Greater than 100,000 CFU/MLVIRIDANS Stre p spp.NO SENSITIVIITES DONE25,000 CFU/ML Staph spp. coag negProbable contaminants no senst done @01/22/20 2008: UA W/ MICRO added. RFLXG = UMIC.Method of Collection:: Clean Catch Name Value Range Interpretation Code Description Data Ana Luisa rce(s) Supporting Document(s) ID Date Data Source [id number] 01/22/2020 08:08:00 PM EDT [facility] @01/22/20 2008: UA W/ MICRO added. RFLXG = UMIC.Method of Collection:: Clean Catch Greater than 100,000 CFU/MLVIRIDANS Stre p spp.NO SENSITIVIITES DONE25,000 CFU/ML Staph spp. coag negProbable contaminants no senst done @01/22/20 2008: UA W/ MICRO added. RFLXG = UMIC.Method of Collection:: Clean Catch Name Value Range Interpretation Code Description Data Ana Luisa rce(s) Supporting Document(s) Erythrocytes [#/volume] in Urine by Manual count 51-100 /hpf 0-5 Above high normal [facility] Leukocytes [#/volume] in Urine by Manual count 5-8 /hpf 0-5 Above high normal [facility] Cells [Type] in Urine sediment by Light microscopy [facility] Bacteria [Presence] in Urine sediment by Light microscopy NEGATIVE Above high normal [facility] ID Date Data Source [id number] 01/22/2020 07:50:00 PM EDT [facility] [place] [address] [place] [address] [phone] NAME SEX PT STATUS ACCOUNT NUMBER DRAGAN LOERA [facility] ER [id number] ORDERING PHYSICIAN LOCATION MEDICAL RECORD NO. Sudarshan Tejada MD ER [id number] ATTENDING PHYSICIAN DATE OF DATE OF EXAM/TIME Doctor Provided,No Family 1994 01/22/201920 TYPE / EXAM US OB Transvaginal REASON FOR EXAM BLEEDING - 8 WEEKS [address]REG [address] [address] [place] [address] [phone] NAME SEX PT STATUS ACCOUNT NUMBER DRAGAN LOERA [facility] ER [id number] ORDERING PHYSICIAN LOCATION MEDICAL RECORD NO. Sudarshan Tejada MD ER [id number] ATTENDING PHYSICIAN DATE OF DATE OF EXAM/TIME Doctor Provided,No Family 1995 01/22/201920 TYPE / EXAM US OB Ultrasound <14 weeks REASON FOR EXAM weeks ; bleeding Clinical History/Indication for Exam: weeks ; bleeding US PELVIS COMPLETE TRANSABDOMINAL INDICATION: with vaginal bleeding. TECHNIQUE: Real-time transabdominal pelvic ultrasound (complete) with image documentation. COMPARISON: None. FINDINGS: Uterus/cervix: Anteverted uterus measures 11.9 x 5.1 x 8.0 cm. Normal myometrial echotexture. Thickening of the endometrial contents. The endometrium is measuring up to 16 mm. Heterogeneous appearance of the midportion with a small focus of increased vascularity seen along the endometrium. Right ovary: The right ovary measures 4.0 x 1.9 x 2.5 cm. Normal blood flow. Left ovary: The left ovary measures 4.2 x 2.9 x 2.6 cm. Normal blood flow. Free fluid: No free fluid. Bladder: Unremarkable as visualized. Wall is normal thickness for degree of distention. Other findings: There is no intrauterine gestational sac. No yolk sac or detected heart rate. IMPRESSION: Findings likely reflect missed spontaneous . Thickening of the endometrial contents perhaps with retained products of conception and clot. Tiny focus of vascularity at the midportion of the endometrium. No adnexal mass or cyst. REPORT SIGNATURE ON FILE 01/22/2020 (19:48 Eastern Time ) Signed by: Joaquin Snyder M.D. Reported By Joaquin Snyder MD on 01/22/201947 Signed By Joaquin Snyder MD on 01/22/201947 Date Time CC: Joaquin Snyder MD; No Family PHYS Provided Techn: LEEANN Low Dt/Tm: Trans by: KRISTEN Prt Dt/Tm: : Total DLP = 0.00 mGy-cm : Total Radiation Dose = 0.0000 mSv Lifetime Dose: 0 mSv Reported By Joaquin Snyder MD on 01/22/201949 Signed By Joaquin Snyder MD on 01/23/20 1101 Date Time CC: Joaquin Snyder MD; No Family PHYS Provided Techn: LEEANN Trans Dt/Tm: Trans by: DT Prt Dt/Tm: 3: Total DLP = 0.00 mGy-cm : Total Radiation Dose = 0.0000 mSv Lifetime Dose: 0 mSv Name Value Range Interpretation Code Description Data Ana Luisa rce(s) Supporting Document(s) ID Date Data Source [id number] 01/22/2020 07:48:00 PM EDT [facility] [address] [place] [address] [phone] NAME SEX PT STATUS ACCOUNT NUMBER DRAGAN LOERA [facility] ER [id number] ORDERING PHYSICIAN LOCATION MEDICAL RECORD NO. Sudarshan Tejada MD ER [id number] ATTENDING PHYSICIAN DATE OF DATE OF EXAM/TIME Doctor Provided,No Family 1994 01/22/201920 TYPE / EXAM US OB Ultrasound <14 weeks REASON FOR EXAM weeks ; bleeding Clinical History/Indication for Exam: weeks ; bleeding US PELVIS COMPLETE TRANSABDOMINAL INDICATION: with vaginal bleeding. TECHNIQUE: Real-time transabdominal pelvic ultrasound (complete) with image documentation. COMPARISON: None. FINDINGS: Uterus/cervix: Anteverted uterus measures 11.9 x 5.1 x 8.0 cm. Normal myometrial echotexture. Thickening of the endometrial contents. The endometrium is measuring up to 16 mm. Heterogeneous appearance of the midportion with a small focus of increased vascularity seen along the endometrium. Right ovary: The right ovary measures 4.0 x 1.9 x 2.5 cm. Normal blood flow. Left ovary: The left ovary measures 4.2 x 2.9 x 2.6 cm. Normal blood flow. Free fluid: No free fluid. Bladder: Unremarkable as visualized. Wall is normal thickness for degree of distention. Other findings: There is no intrauterine gestational sac. No yolk sac or detected heart rate. IMPRESSION: Findings likely reflect missed spontaneous . Thickening of the endometrial contents perhaps with retained products of conception and clot. Tiny focus of vascularity at the midportion of the endometrium. No adnexal mass or cyst. REPORT SIGNATURE ON FILE 01/22/2020 (19:48 Eastern Time ) Signed by: Joaquin Snyder M.D. Reported By Joaquin Snyder MD on 01/22/201947 Signed By Joaquin Snyder MD on 01/22/201947 Date Time CC: Joaquin Snyder MD; No Family PHYS Provided Techn: CARAI Trans Dt/Tm: Trans by: DT Prt Dt/Tm: 2: Total DLP = 0.00 mGy-cm : Total Radiation Dose = 0.0000 mSv Lifetime Dose: 0 mSv Name Value Range Interpretation Code Description Data Ana Luisa rce(s) Supporting Document(s) ID Date Data Source [id number] 01/22/2020 06:21:00 PM EDT [facility] Name Value Range Interpretation Code Description Data Ana Luisa rce(s) Supporting Document(s) Leukocytes [#/volume] in Blood by Automated count 12.0 10*3/uL 4.45-10.71 Above high normal [facility] Erythrocytes [#/volume] in Blood by Automated count 4.47 10*6/uL 4.20 -5.40 N [facility] Hemoglobin [Moles/volume] in Blood 12.4 g/dL 10.7-15.4 [facility] Hematocrit [Volume Fraction] of Blood by Automated count 37.8 % 3 7-47 N [facility] Erythrocyte mean corpuscular volume [Ent itic volume] in Cord blood by Automated count 84.6 fL 80-96 N [facility] Erythrocyte mean corpuscular hemoglobin [Entitic mass] by Automated count 27.7 pg 27-31 N [facility] Erythrocyte mean corpuscular hemoglobin concentration [Mass/volume] in Cord blood 32.8 g/dL 33-[address] [facility] Erythrocyte distribution width [Entitic volume] by Automated count 15 % 11-15 N [facility] Platelets [#/volume] in Blood by Automated count 284 10*3/uL 130-472 N [facility] Platelet mean volume [Entitic volume] in Blood 9.3 fL 9.1-13.1 N [facility] Neutrophils/100 leukocytes in Blood by Automated count 64.9 % 41- 77 N [facility] Neutrophils [#/volume] in Blood by Automated count 7.8 U 1.7-7.6 Above high normal [facility] Lymphocytes/100 leukocytes in Blood by Automated count 26.0 % 14- 46 N [facility] Lymphocytes [#/volume] in Blood by Automated count 3.1 U 0.6-4.6 N [facility] Monocytes/100 leukocytes in Blood by Automated count 7.4 % 4-12 N [facility] Monocytes [#/volume] in Blood by Automated count 0.9 U 0.2-1.2 N [facility] Eosinophils/100 leukocytes in Blood by Automated count 0.7 % 0-7 N [facility] Eosinophils [#/volume] in Blood by Automated count 0.1 U 0.0-0.5 N [facility] Basophils/100 leukocytes in Blood by Automated count 0.2 % 0.4-1.3 Below low normal [facility] Basophils [#/volume] in Blood by Automated count 0.0 U 0.0-0.2 N [facility] NUCLEATED RED BLOOD CELL 0 % [facility] NUCLEATED RED BLOOD CELL# 0 U [facility] Immature granulocytes [Presence] in Blood by Automated count 0-2 N [facility] Immature granulocytes [#/volume] in Blood by Automated count 0.1 U 0-0.1 N [facility] Manual Differential panel - Blood NO [facility] ID Date Data Source [id number] 01/22/2020 06:54:00 PM EDT [facility] Name Value Range Interpretation Code Description Data Ana Luisa rce(s) Supporting Document(s) Urea nitrogen [Mass/volume] in Serum or Plasma 12 mg/dL 9-23 N [facility] Sodium [Moles/volume] in Serum or Plasma 139 mmol/L 132-146 N [facility] Potassium [Moles/volume] in Serum or Plasma 3.8 mmol/L 3.5-5.5 N [facility] Chloride [Moles/volume] in Serum or Plasma 106 mmol/L 99-109 N [facility] Carbon dioxide, total [Moles/volume] in Serum or Plasma 27 mmol/L 20 -31 N [facility] Anion gap in Serum or Plasma 10 mmol/L 8-16 N [facility] Glucose [Mass/volume] in Serum or Plasma 108 mg/dL 74-106 Above high normal [facility] Creatinine 0.8 mg/dL 0.5-1.1 [facility] Glomerular filtration rate/1.73 sq M.pre dicted [Volume Rate/Area] in Serum or Plasma Greater Than 60 ABOVE 60 [facility] Calcium [Mass/volume] in Serum or Plasma 8.7 mg/dL 8.5-10.1 [facility] ID Date Data Source [id number] 01/22/2020 06:54:00 PM EDT [facility] Name Value Range Interpretation Code Description Data Ana Luisa rce(s) Supporting Document(s) Choriogonadotropin.beta subunit [Units/volume] in Seru m or Plasma [id number] m[iU]/mL 0-10 Above high normal [facility] spital @Instrument will autodiluteAPPROXIMATE G ESTATION AGE APRROXIMATE HCG RANGE 0-1 WEEK 0 - 50 1-2 WEEKS 40 - 300 2-3 WEEKS 100 - 1,000 3-4 WEEKS 500 - 6,000 1-2 MONTHS 5,000 - 200,000 2- 3 MONTHS 10,000 - 100,000 2ND TRIMESTER 3,000 - 50,000 3RD TRIMESTER 1,000 - 50,000 ID Date Data Source [id number] 01/22/2020 06:11:00 PM EDT [facility] ED Physician Documentation NAME: DRAGAN LOERA : 1995 AGE: 24 MR#: [id number] SERVICE DATE: 01/22/[address]: Sneha Mccullough MD PRIMARY CARE DR: No Family PHYS Provided ROOM#: HPI (Adult, General) <Sudarshan Tejada MD - Last Filed: 01/22/20 18:15> General Chief Complaint: Urogenital Stated Complaint: VAGINAL BLEEDING Resident [facility], travel outisde home, exposure to hot tubs:: No Time Seen by Provider: 01/22/20 18:03 Source: patient and family Exam Limitations: no limitations History of Present Illness Narrative: the patient is about 7 weeks and has had intermittentvaginal bleeding that started about 2 days ago, but became constant today; denies passing any tissue, bu has had some small clots today; patient says that she had some bad cramping 2 days ago, but that seems to have subsided History of Present Illness Timing/Duration: constant and getting worse Place Injury/Event Occurred (if applicable): home Past Medical History Past Medical History: Nursing Past Medical History Has Been Reviewed Allergies/Home Meds Allergies Allergy/AdvReac Type Severity Reaction Status Date / Time No Known Drug Allergies Allergy Verified 01/22/20 18:20 Home Medications Medication Instructions Recorded Confirmed Last Taken Type No Known Home Medications 01/22/20 01/22/20 Unknown History PMH (from Triage) <Sudarshan Tejada MD - Last Filed: 01/22/20 18:15> Patient Medical History PMH Reviewed/Updated as Needed: Yes PMH/PSH from Triage: Medical History (Updated 01/22/20 @ 18:20 by Justine Rose, HEATHER) Healthy female adult (Acute Medical) Hx Drug Resistant Infections Isolation: Standard precautions Hx Recent Travel Nurse screening for coronavirus: Recent Travel outside the country (where) Coronavirus risk:travel to [facility];contact w/ high risk person In the last 14 days before symptom onset, does the patient have a history of travel from [facility]; or close contact with a person who is under investigation for 2019-nCoV while that person was ill; or in the last 14 days close contact with an laboratory- confirmed 2019-nCoV ill patient? Has patient experienced No coronavirus symptoms <Sneha Mccullough MD - Last Filed: 01/22/20 20:12> Patient Medical History PMH/PSH from Triage: Medical History (Updated 01/22/20 @ 18:20 by Justine Rose RN) Healthy female adult (Acute Medical) Hx Recent Travel Nurse screening for coronavirus: Recent Travel outside the country (where) Coronavirus risk:travel to [facility];contact w/ high risk person In the last 14 days before symptom onset, does the patient have a history of travel from [facility]; or close contact with a person who is under investigation for 2019-nCoV while that person was ill; or in the last 14 days close contact with an laboratory- confirmed 2019-nCoV ill patient? Has patient experienced No coronavirus symptoms ROS <Sudarshan Tejada MD - Last Filed: 01/22/20 18:15> Review of Systems Constitutional: Denies fever, chills and malaise Eyes: Denies vision change ENT: Denies mouth pain, nasal discharge, nasal congestion, throat pain and hoarseness Respiratory: Denies cough and SOB Cardiovascular: Denies chest pain and palpitations Gastrointestinal: Reports No Symptoms/Complaints Genitourinary- Female: Reports other (vaginal bleeding); Denies dysuria, frequency and urgency Musculoskeletal: Denies neck pain, arm pain and back pain Skin/Breasts: Denies rash, hives and pruritus Neurologic: Denies weakness, headache and lightheadedness Physical Exam <Sudarshan Tejada MD - Last Filed: 01/22/20 18:15> General Limitations: no limitations General appearance: alert and in no apparent distress Head Head exam: Present atraumatic, normocephalic and normal inspection Eye Eye exam: Present normal apperance and EOMI ENT ENT exam: Present normal exam, normal orophraynx and mucous membranes moist Neck Neck exam: Present normal inspection, full ROM and supple Respiratory Respiratory exam: Present normal lung sounds bilaterally Cardiovascular Cardiovascular Exam: Present regular rate and normal rhythm GI/Abdominal GI/Abdominal exam: Present soft and tenderness (mild suprapubic tenderness) Extremities Exam Extremities exam: Present normal inspection and full ROM; Absent tenderness Back Exam Back exam: Present normal inspection and full ROM; Absent tenderness Neurological Exam Neurological exam: Present alert, oriented X3, normal gait and other (speech normal) Psychiatric Psychiatric exam: Present normal affect and normal mood Skin Skin exam: Present warm, dry, intact and normal color Vital Signs Vital Signs: Vital Signs 01/22/20 18:19 Temperature 98.8 F Pulse Rate 88 Respiratory Rate 16 Blood Pressure 146/88 O2 Sat by Pulse Oximetry 98 <Sneha Mccullough MD - Last Filed: 01/22/20 20:12> Vital Signs Vital Signs: Vital Signs 01/22/20 18:19 Temperature 98.8 F Pulse Rate 88 Respiratory Rate 16 Blood Pressure 146/88 O2 Sat by Pulse Oximetry 98 MDM (comprehensive) <Sudarshan Tejada MD - Last Filed: 01/22/20 18:15> Lab Data Labs: 01/22/20 18:15 01/22/20 18:15 Laboratory Results Last 24 hours 01/22/20 18:15: WBC 12.0 H, RBC 4.47, Hgb 12.4, Hct 37.8, MCV 84.6, MCH 27.7, MCHC 32.8 L, RDW 15, Plt Count 284, MPV 9.3, Immature Gran % (Auto) 0.8, Neut % (Auto) 64.9, Lymph % (Auto) 26.0, Price % (Auto) 7.4, Eos % (Auto) 0.7, Baso % (Auto) 0. 2 L, Lymph # (Auto) 3.1, Abs Immat Gran (auto) 0.1, Add Manual Diff No, Absolute Neutrophils 7.8 H, Monocytes # 0.9, Absolute Eosinophils 0.1, Absolute Basophils 0.0 01/22/20 18:15: Sodium 139, Potassium 3.8, Chloride 106, Carbon Dioxide 27, Anion Gap 10, BUN 12, Creatinine 0.8, GFR Calculation Greater than 60, Glucose 108 H, Calcium 8.7, HCG, Quant [id number] H 01/22/20 19:55: Urine Color [place], Urine Appearance Turbid A, Urine pH 8.5, Ur Specific [place] 1.004A, Urine Protein 30 mg/dl H, Urine Ketones Negative, Urine Blood Large H, Urine Nitrite Negative, Urine Bilirubin Negative, Urine Urobilinogen 0.2 eu/dl, Ur Leukocyte Esterase Moderate H, Urine RBC 51-100 H, Urine WBC 5-8 H, Ur Squamous Epith Cells Many, Urine Bacteria Small amount H, Micro UA Comment Microscopic added, Urine Glucose Negative <Sneha Mccullough MD - Last Filed: 01/22/20 20:12> Lab Data Labs: 01/22/20 18:15 01/22/20 18:15 Laboratory Results Last 24 hours 01/22/20 18:15: WBC 12.0 H, RBC 4.47, Hgb 12.4, Hct 37.8, MCV 84.6, MCH 27.7, MCHC 32.8 L, RDW 15, Plt Count 284, MPV 9.3, Immature Gran % (Auto) 0.8, Neut % (Auto) 64.9, Lymph % (Auto) 26.0, Price % (Auto) 7.4, Eos % (Auto) 0.7, Baso % (Auto) 0.2 L, Lymph # (Auto) 3.1, Abs Immat Gran (auto) 0.1, Add Manual Diff No, Absolute Neutrophils 7.8 H, Monocytes # 0.9, Absolute Eosinophils 0.1, Absolute Basophils 0.0 01/22/20 18:15: Sodium 139, Potassium 3.8, Chloride 106, Carbon Dioxide 27, Anion Gap 10, BUN 12, Creatinine 0.8, GFR Calculation Greater than 60, Glucose 108 H, Calcium 8.7, HCG, Quant [id number] H 01/22/20 19:55: Urine Color [place], Urine Appearance Turbid A, Urine pH 8.5, Ur Specific [place] 1.004A, Urine Protein 30 mg/dl H, Urine Ketones Negative, Urine Blood Large H, Urine Nitrite Negative, Urine Bilirubin Negative, Urine Urobilinogen 0.2 eu/dl, Ur Leukocyte Esterase Moderate H, Urine RBC 51-100 H, Urine WBC 5-8 H, Ur Squamous Epith Cells Many, Urine Bacteria Small amount H, Micro UA Comment Microscopic added, Urine Glucose Negative Radiology Data Radiology results: report reviewed Medical Decision Making Free Text/Narative:: Follow-up for this patient who presented with 7 week and vaginal bleeding. The US shows no IUP and the quantitative hcg is 17,000. The patient has had a miscarriage. <Sneha Mccullough MD - Last Filed: 01/22/20 20:12> Plan Plan: d/c home Plan of care: Follow up appointments discussed, Plan of care discussed with patient and or family, Patient encouraged to ask questions about plan and Patient agrees with plan of care Discharge Plan Admission/Discharge Dx Primary DC Diagnosis: Miscarriage ED Provider: Sneha Oswald ED Status: Results Pending Time Seen by Provider: 01/22/20 18:03 Triaged At: 01/22/20 18:02 Condition Condition: Stable Discharge Detail Disposition: Home, Self-Care Med Rec New Prescriptions: No Action No Known Home Medications RF: 0 Medications Medication reconciliation performed by provider at discharge: Yes Follow Up Care/Instructions Diet/Activity/Wound Care..: Return to PMD or ER on 01/24/2020 for repeat lab tests *Discharge Patient* Discharge Orders: Discharge Order (Routine); Ordered 01/22/20 Ordered By: Sneha Mccullough Interventions Interventions: ED Urogenital Last Done: 01/22/20 18:21 Report Signers: <Electronically signed by Sudarshan Tejada MD> [place] [id number] Sudarshan Tejada MD SIGNATURE DA Report Cosigners: <Electronically signed by Sneha Mccullough MD> Sneha Mccullough MD 01/22/202011 D: COUTH 01/22/201810 T: COUTH 01/22/201810 CC: No Family PHYS Provided Name Value Range Interpretation Code Description Data Ana Luisa rce(s) Supporting Document(s) Procedure Social History Code Duration Value Status Description Data Source(s ) 01/22/2020 06:21:00 PM EDT Never smoker completed Never [facility] Smoking 01/22/2020 06:21:00 PM EDT Never smoker completed Never [facility] Vital Signs ID Date Data Source UNK Name Value Range Interpretation Code Description Data Source(s) Body mass index (BMI) [Ratio] 26.3 kg/m2 26.3 k g/m2 [facility] Body height 69 [in_i] 69 [in_i] [facility] ([facility]) 5'9" Body weight 80.854 kg 80.854 kg [facility] ([facility]) Body weight 178.25 [lb_av] 178.25 [lb_av] [facility] ([facility]) Oxygen saturation in Arterial blood by Pulse oximetry 98 % 98 % [facility] Respiratory rate 16 /min 16 /min [facility] ( [facility]) Body temperature 98.3 [degF] 98.3 [degF] [facility] ([facility]) Heart rate 102 /min 102 /min [facility] ([facility]) Diastolic blood pressure 76 mm[Hg] 76 mm[Hg] [facility] ([facility]) Systolic blood pressure 110 mm[Hg] 110 mm[Hg] M [facility] ([facility]) Body surface area Derived from formula 1.97 m2 1.97 m2 [facility] Body temperature 98.9 [degF] 98.9 [degF] [facility] ([facility]) Body temperature 97.1 [degF] 97.1 [degF] [facility] ([facility]) Body surface area Derived from formula 1.94 m2 1.94 m2 [facility] ([facility]) Body mass index (BMI) [Ratio] 25.6 kg/m2 25.6 k g/m2 [facility] ([facility]) Body height 69 [in_i] 69 [in_i] [facility] ([facility]) 5'9" Body weight 78.700 kg 78.700 kg [facility] ([facility]) Body weight 173.50 [lb_av] 173.50 [lb_av] [facility] ([facility]) Oxygen saturation in Arterial blood by Pulse oximetry 97 % 97 % [facility] ([facility]) Respiratory rate 16 /min 16 /min [facility] ( [facility]) Body temperature 99.6 [degF] 99.6 [degF] [facility] ([facility]) Heart rate 68 /min 68 /min [facility] ([facility]) Diastolic blood pressure 80 mm[Hg] 80 mm[Hg] [facility] ([facility]) Systolic blood pressure 124 mm[Hg] 124 mm[Hg] [facility] ([facility]) Body surface area 1.94 m2 1.94 m2 [facility] ([facility]) Body surface area 1.94 m2 1.94 m2 [facility] ([facility]) Body mass index (BMI) [Ratio] 25.5 kg/m2 25.5 k g/m2 [facility] ([facility]) Body height 69 [in_i] 69 [in_i] [facility] ([facility]) 5'9" Body weight 78.473 kg 78.473 kg [facility] ([facility]) Body weight 173.00 [lb_av] 173.00 [lb_av] [facility] ([facility]) Body temperature 98.2 [degF] 98.2 [degF] [facility] ([facility]) Heart rate 60 /min 60 /min [facility] ([facility]) Diastolic blood pressure 85 mm[Hg] 85 mm[Hg] [facility] ([facility]) Systolic blood pressure 131 mm[Hg] 131 mm[Hg] M [facility] ([facility]) Diastolic blood pressure 83 mm[Hg] 83 mm[Hg] eCW1 ([facility]) Systolic blood pressure 140 mm[Hg] 140 mm[Hg] e CW1 ([facility]) Body temperature 98.3 [degF] 98.3 [degF] eCW1 ( [facility]) Respiratory rate 18 /min 18 /min eCW1 ([facility] Heart rate 72 /min 72 /min eCW1 ([facility]) Body mass index (BMI) [Ratio] 25.25 kg/m2 25.25 kg/m2 eCW1 ([facility]) Body height 69 [in_i] 69 [in_i] eCW1 ([facility]) Body weight 171 [lb_av] 171 [lb_av] eCW1 ([facility]) Body surface area 1.91 m2 1.91 m2 [facility] ([facility]) Body mass index (BMI) [Ratio] 24.7 kg/m2 24.7 k g/m2 [facility] ([facility]) Body height 69 [in_i] 69 [in_i] [facility] ([facility]) 5'9" Body weight 75.865 kg 75.865 kg [facility] ([facility]) Body weight 167.25 [lb_av] 167.25 [lb_av] [facility] T ([facility]) Oxygen saturation in Arterial blood by Pulse oximetry 98 % 98 % [facility] ([facility]) Respiratory rate 16 /min 16 /min [facility] ( [facility]) Body temperature 97.8 [degF] 97.8 [degF] [facility] ([facility]) Heart rate 64 /min 64 /min [facility]) Diastolic blood pressure 70 mm[Hg] 70 mm[Hg] [facility] ([facility]) Systolic blood pressure 100 mm[Hg] 100 mm[Hg] M [facility] ([facility])
--- NOTE | 2020-12-13 16:14 | REP ---
INDICATION: pain, swelling. COMPARISON: None. TECHNIQUE: Targeted left breast sonography, 1-5 o'clock region and the left nipple. FINDINGS: Targeted sonography demonstrates heterogeneous fibroglandular background echotexture. No abnormal fluid collection is seen to suggest abscess. IMPRESSION: BI-RADS category 1-findings. Clinical follow-up suggested. <Electronically signed by Mart Hector > 12/13/20 [id number]
[2020-12-13 17:37] VITALS: BP 132/84
== END 2020-12-13 17:31 | disposition home or self-care (01) ==
LOC: M ED 13:54
DX: N64.4 Mastodynia (principal); F17.200 Nicotine dependence, unspecified, uncomplicated